=== PATIENT | female | born 1985 | race Asian ===

== ENCOUNTER → 2020-03-29 14:51 | Outpatient (BNVA) | payer OTHER, SELFPAY | PROVIDERS: PCP Internal Medicine; Referring Provider Internal Medicine; Visit Provider Physician Assistant | DX: Z76.89 Persons encountering health services in other specified circumstances (principal) ==

== ENCOUNTER 2020-06-02 11:30 | Day surgery (SDC) | payer OTHER, SELFPAY ==
[2020-05-26 19:36] VITALS: BMI 21.7
--- NOTE | 2020-06-01 09:36 | HO.ANESPROP2 ---
Documented by User: Janet Durbin 06/01/20 09:38 HPI - Anesthesia Eval Consult details Narrative: 34yo F for Upper Endoscopy with Balloon Dilitation PMFSH Active Problems Active Problems: All Active Problems (Updated 05/26/20 @ 19:34 by Oralia Matias RN) Dysphagia (Acute) Inflammatory arthritis (Acute) Acne (Acute) Odynophagia (Acute) Past Medical History Medical History (Updated 05/26/20 @ 19:34 by Oralia Matias RN) Acne Inflammatory arthritis Migraine Odynophagia Family History Family History Father Medical history non-contributory Mother Medical history non-contributory Brother No problems noted. Brother No problems noted. Sister No problems noted. Sister No problems noted. Son No problems noted. Daughter No problems noted. Daughter No problems noted. Surgical History Surgical History No pertinent past surgical history Social History Social History (Updated 03/29/20 @ 15:01 by Negra Wray PA-C) Household Members: Spouse and Children Alcohol intake: never Smoking Status: Never smoker Second Hand Smoke Exposure: No Use of substances other than those prescribed or required for medical reasons: No Advance Directives: No Advance Directives Information Provided: No Advance Directives on File: No Recently lost weight without trying: No Current occupational status: unemployed Meds Allergies Allergy/AdvReac Type Severity Reaction Status Date / Time morphine [MORPHINE] Allergy Intermediate RASH Verified 02/19/20 00:43 amoxicillin [AMOXICILLIN] Allergy Unknown UNKNOWN, Verified 02/19/20 00:43 unknown - childhood sulfacetamide Allergy Unknown rash Verified 02/19/20 00:43 Home Medications Medication Instructions Recorded Confirmed Last Taken Type meloxicam 15 mg tablet 15 mg PO DAILY 02/18/20 05/26/20 Unknown History spironolactone 25 mg tablet 25 mg PO DAILY 02/18/20 05/26/20 Unknown History clindamycin phosphate 1 applic TOPICAL BEDTIME PRN 05/26/20 05/26/20 Unknown History Exam Exam Date and Time: June 01, 2020 0936 Height,Weight and Vital Signs: Height 5 ft 1 in Weight 52.163 kg Assessment and Plan Assessment Anesthesia Assessment: Chart Reviewed Documented by User: Andressa Thakursamnia 06/02/20 14:16 PMFSH Past Medical History Medical History (Updated 05/26/20 @ 19:34 by Oralia Matias RN) Acne Inflammatory arthritis Migraine Odynophagia Family History Family History Father Medical history non-contributory Mother Medical history non-contributory Brother No problems noted. Brother No problems noted. Sister No problems noted. Sister No problems noted. Son No problems noted. Daughter No problems noted. Daughter No problems noted. Family history of problems with anesthesia: No Surgical History Surgical History No pertinent past surgical history History of Problems with Anesthesia: No Social History Social History (Updated 03/29/20 @ 15:01 by Negra Wray PA-C) Household Members: Spouse and Children Alcohol intake: never Smoking Status: Never smoker Second Hand Smoke Exposure: No Use of substances other than those prescribed or required for medical reasons: No Advance Directives: No Advance Directives Information Provided: No Advance Directives on File: No Recently lost weight without trying: No Current occupational status: unemployed Meds Allergies Allergy/AdvReac Type Severity Reaction Status Date / Time morphine [MORPHINE] Allergy Intermediate RASH Verified 02/19/20 00:43 amoxicillin [AMOXICILLIN] Allergy Unknown UNKNOWN, Verified 02/19/20 00:43 unknown - childhood sulfacetamide Allergy Unknown rash Verified 02/19/20 00:43 Home Medications Medication Instructions Recorded Confirmed Last Taken Type meloxicam 15 mg tablet 15 mg PO DAILY 02/18/20 05/26/20 Unknown History spironolactone 25 mg tablet 25 mg PO DAILY 02/18/20 05/26/20 Unknown History clindamycin phosphate 1 applic TOPICAL BEDTIME PRN 05/26/20 05/26/20 Unknown History Exam Height,Weight and Vital Signs: Vital Signs Temp Pulse Resp BP Pulse Ox 06/02/20 12:19 98.3 F 62 16 128/79 100 Pertinent Lab Results Pertinent Lab Results: Lab Results 06/02/20 Range/Units 11:52 Urine Test NEGATIVE (NEGATIVE) Airway Mallampati Class: I TM Dist: >3cm Neck ROM: Full Heart: RRR Lungs: CTAB Assessment and Plan Assessment Anesthesia Assessment: Anesthesia Plan Discussed and Chart Reviewed Final Anesthetic Review NPO: Yes ASA Class: II Final Preanesthetic Review: No Changes in Pt Med Stat, Meds/Allgs Chart Reviewed, Consent Obtained/Reviewed and Anes Risks/Benef Reviewed Patient Risk: Low Procedure Risk: Low Assessment/Block/Sedation in SS: Assess/Block/Sedation-SS Anesthetic Plan Anesthetic Plan: MAC: Disposition: Standard PACU
--- NOTE | 2020-06-02 12:12 | P.HPSUR_ITS ---
Pre-Procedural Eval Section B Chief Complaint: dysphagia Relevant Social History: None Present Medications: see Short Stay Collaborative assessment Medical History: Significant History (Acne Inflammatory arthritis Migraine Odynophagia) History of Previous Operations: No relevant previous surgery Allergies: Allergies Allergy/AdvReac Type Severity Reaction Status Date / Time morphine [MORPHINE] Allergy Intermediate RASH Verified 02/19/20 00:43 amoxicillin [AMOXICILLIN] Allergy Unknown UNKNOWN, Verified 02/19/20 00:43 unknown - childhood sulfacetamide Allergy Unknown rash Verified 02/19/20 00:43 Review of Systems Sugical H&P ROS: Negative: Constitution, Cardiovascular, Respiratory, Neurolo gical, Psychiatric, Hem-Onc, Allergic/Immunologic, Gastrointestinal, Genitourinary, Musculoskeletal, Integumentary, Endocrine and Eyes/Ears/Nose/Throat Exam Surgical H&P Exam: Normal: HEENT, Normal: Heart, Normal: Lungs, Normal: Extremities, Normal: Abdomen, Normal: Skin and Normal: Neurological Plan Diagnosis/Plan: Unchanged I have reviewed the history and physical and performed a pertinent physical examination on my patient. No changes have occurred unless specified.
[2020-06-02 12:15] LABS: UPreg QC Valid YES; Urine Pregnancy NEGATIVE (NEGATIVE)
[2020-06-02 12:19] VITALS: BP 128/79; PULSE 62; RESP 16; TEMP 36.8; O2SAT 100
[2020-06-02] MEDS: Lactated Ringers 1,000 ML 100 ML IVCONT (13:18)
--- NOTE | 2020-06-02 13:44 | W.PM.OPN ---
Operative Note Operative Note Date of Service: 06/02/20 Narrative: Procedure Description: EGD No problems with [facility] anesthesia FLEXIBLE TRANSORAL UPPER GASTROINTESTINAL ENDOSCOPY UPPER ENDOSCOPY Consent: Indications for the procedure and potential complications of bleeding, perforation, reaction to medications and missed diagnosis were discussed with the patient and informed consent was obtained. Instrument: Olympus GIF H 190 J mid size upper endoscope Monitoring: Vital signs and clinical assessment, continuous EKG monitoring, Pulse oximetry, Carbon Dioxide monitoring and blood pressure monitoring were done throughout the procedure. Procedure: The patient was placed in the left lateral decubitis position and pre-procedure medications were administered and a bite block was placed. The endoscope was inserted into the mouth and advanced under direct vision to the third part of duodenum. A careful inspection was made as the upper endoscope was withdrawn including a retroflexed examination of the proximal stomach; Findings and interventions are described below. Findings: Larynx:normal Esophagus: GE junction at 38 cm, diaphragm hiatus at 38 cm, LA grade A esophagitis, irregular Z line, bx taken from GEj and random esophagus. Balloon dilation 20 mm done at LES and 18 mm at UES, no tears or bleeding seen Stomach: Patchy gastric erythema. Biopsies were obtained. Grade 2 flap valve on retroflexed examination of the cardia. Duodenum: Normal bulb and descending duodenum Intervention: Biopsies as noted above Impression/Findings: esophagitis gastritis PLAN: await bx commence PPi and assess response
[2020-06-02 13:50] VITALS: BP 97/55; PULSE 68; RESP 16; TEMP 37; O2SAT 98
[2020-06-02 14:05] VITALS: BP 103/68; PULSE 66; RESP 16; O2SAT 100
[2020-06-02 14:20] VITALS: BP 121/70; PULSE 69; RESP 16; TEMP 37; O2SAT 100
== END 2020-06-02 15:06 | disposition home or self-care (01) ==
PROVIDERS: Nurse Practitioner; PCP Internal Medicine; Visit Provider Internal Medicine Gastroenterology
PROC: (CPT 43249; principal; 2020-06-02 13:10)
DX: R13.10 Dysphagia, unspecified (principal); K20.80 Other esophagitis without bleeding; K29.50 Unspecified chronic gastritis without bleeding; B96.81 Helicobacter pylori [H. pylori] as the cause of diseases classified elsewhere; K44.9 Diaphragmatic hernia without obstruction or gangrene; M06.4 Inflammatory polyarthropathy; Z79.899 Other long term (current) drug therapy; Z88.1 Allergy status to other antibiotic agents; Z88.2 Allergy status to sulfonamides; Z88.8 Allergy status to other drugs, medicaments and biological substances
CPT/HCPCS: 43249; 43239; 81025; 88305; 88342; C1726

== ENCOUNTER → 2020-06-09 10:17 | Outpatient (BNVA) | payer OTHER, SELFPAY | PROVIDERS: PCP Internal Medicine; Visit Provider Physician Assistant ==

== ENCOUNTER → 2020-09-17 11:20 | Outpatient (BNVA) | payer OTHER, SELFPAY | PROVIDERS: PCP Internal Medicine; Visit Provider Advanced Practice Midwife ==

== ENCOUNTER 2020-11-26 12:14 | Outpatient (REF) | payer OTHER, SELFPAY ==
[2020-11-26 14:05] LABS: MANUAL DIFF FLAG NO
[2020-11-26 14:09] LABS: Basophils Absolute Auto 0.1 X10*3/uL (0.0-0.2); Basophils Percent Auto 0.9 % (0-2); Eosinophils Absolute Auto 0.5 X10*3/uL (0.0-0.4); Eosinophils Percent Auto 6.9 % (0-4); Hemoglobin 11.2 g/dl (12.0-16.0); Imm Gran Abs Auto 0.02 X10*3/uL (0.00-0.03); Imm Gran Pct Auto 0.3 % (0.0-0.4); Lymphocytes Absolute Auto 1.9 X10*3/uL (1.2-4.9); Lymphocytes Percent Auto 27.9 % (20-40); Mean Corpuscular HGB Conc 31.1 g/dl (31.0-35.0); Mean Corpuscular Hemoglobin 25.7 pg (27.0-33.0); Mean Corpuscular Volume 82.6 fL (80-98); Monocytes Absolute Auto 0.4 X10*3/uL (0.1-1.2); Monocytes Percent Auto 5.8 % (2-11); Neutrophils Absolute Auto 3.9 X10*3/uL (2.0-8.3); Neutrophils Percent Auto 58.2 % (45-73); Platelet Count 406 X10*3/uL (160-400); Red Blood Count 4.36 X10*6/uL (4.20-5.50); Red Cell Distribution Width 18.2 % (11.0-16.0); White Blood Count 6.7 X10*3/uL (4.8-10.8)
[2020-11-26 14:50] LABS: Iron 58 mcg/dL (30-160); Percent Iron Saturation 16 % (15-50); Total Iron Binding Capacity 370 mcg/dL (228-428); Unsaturated Iron Binding 312 ug/dL
[2020-11-26 15:12] LABS: Thyroid Stimulating Hormone 1.73 uIU/mL (0.32-4.0)
== END 2020-11-26 12:15 | disposition home or self-care (01) ==
LOC: HO.HMGCLDS 12:14
PROVIDERS: PCP Internal Medicine; Visit Provider Internal Medicine
DX: D50.9 Iron deficiency anemia, unspecified (principal); R53.83 Other fatigue
CPT/HCPCS: 36415; 83540; 84443; 85025; 85027

== ENCOUNTER 2021-03-01 | Outpatient (REF) | payer OTHER, SELFPAY | END 2021-03-01 00:01 | disposition home or self-care (01) | LOC: HO.LNP | PROVIDERS: Visit Provider Internal Medicine Gastroenterology | DX: D50.9 Iron deficiency anemia, unspecified (principal) | CPT/HCPCS: 83013 ==

== ENCOUNTER 2021-03-01 12:00 | Outpatient (REF) | payer OTHER, SELFPAY ==
[2021-03-01 13:42] LABS: MANUAL DIFF FLAG NO
[2021-03-01 13:55] LABS: Basophils Absolute Auto 0.1 X10*3/uL (0.0-0.2); Basophils Percent Auto 0.8 % (0-2); Eosinophils Absolute Auto 0.5 X10*3/uL (0.0-0.4); Eosinophils Percent Auto 5.5 % (0-4); Imm Gran Abs Auto 0.03 X10*3/uL (0.00-0.03); Imm Gran Pct Auto 0.4 % (0.0-0.4); Lymphocytes Absolute Auto 2.4 X10*3/uL (1.2-4.9); Lymphocytes Percent Auto 28.3 % (20-40); Mean Corpuscular HGB Conc 31.4 g/dl (31.0-35.0); Mean Corpuscular Hemoglobin 25.3 pg (27.0-33.0); Mean Corpuscular Volume 80.6 fL (80.0-98.0); Monocytes Absolute Auto 0.6 X10*3/uL (0.1-1.2); Monocytes Percent Auto 6.5 % (2-11); Neutrophils Absolute Auto 4.9 x10*3/uL (2.0-8.3); Neutrophils Percent Auto 58.5 % (45-73); Platelet Count 420 X10*3/uL (160-400); Red Blood Count 4.34 X10*6/uL (4.20-5.50); White Blood Count 8.4 X10*3/uL (4.8-10.8)
[2021-03-01 14:56] LABS: Alanine Aminotransferase 16 U/L (0-31); Albumin Level 4.7 g/dL (3.5-5.0); Alkaline Phosphatase 76 U/L (39-117); Anion Gap 11 (12-20); Aspartate Amino Transferase 20 U/L (5-31); Bilirubin Total 0.2 mg/dL (0.0-1.0); Blood Urea Nitrogen 10 mg/dL (9-16); Calcium 9.7 mg/dL (8.4-10.2); Carbon Dioxide 24 mmol/L (22-29); Chloride 104 mmol/L (96-108); Estimated Glomerular Filt Rate > 60; Glucose Random 82 mg/dL (60-115); Iron 21 mcg/dL (30-160); Percent Iron Saturation 5 % (15-50); Potassium 4.1 mmol/L (3.3-5.1); Sodium 135 mmol/L (135-145); Total Iron Binding Capacity 461 mcg/dL (228-428); Total Protein 8.1 g/dL (6.5-8.0); Unsaturated Iron Binding 440 ug/dL
[2021-03-01 15:03] LABS: Folate 14.3 ng/mL (> or = 4.0); Vitamin B12 485 pg/mL (200-900)
[2021-03-01 15:10] LABS: Ferritin 9 ng/mL (10-122)
[2021-03-02 08:54] LABS: HBc Num1 0.16 S/CO (0.00-0.79); Hepatitis B Core Antibody Nonreactive (Nonreactive); ~Hepatitis B Surface Antibody NONREACTIVE (Nonreactive)
[2021-03-02 09:06] LABS: HBsAGNum1 0.15 S/CO (0.00-0.99); Hepatitis A Antibody IgM 0.35 Index (0-0.79); Hepatitis B Surface Antigen Negative (Negative); ~HepC Num1 0.07 S/CO (0.00-0.79); ~Hepatitis A Antibody IgM Nonreactive (Nonreactive); ~Hepatitis C Antibody Nonreactive (Nonreactive)
[2021-03-04 14:07] LABS: Zinc 69 mcg/dL (60-130)
[2021-03-05 08:26] LABS: Transglutaminase Ab IgG 5.8 U/mL; Transglutaminase IgA 16.8 U/mL
[2021-03-05 18:05] LABS: Vitamin C 0.2 mg/dL (0.3-2.7)
== END 2021-03-01 12:01 | disposition home or self-care (01) ==
LOC: HO.LAB 12:00
PROVIDERS: PCP Internal Medicine; Referring Provider Internal Medicine; Visit Provider Internal Medicine Gastroenterology
DX: G89.29 Other chronic pain (principal); R10.33 Periumbilical pain; K75.81 Nonalcoholic steatohepatitis (NASH); D50.9 Iron deficiency anemia, unspecified
CPT/HCPCS: 36415; 80053; 82180; 82607; 82728; 82746; 83013; 83516; 83540; 84630; 85025; 86003; 86704; 86706; 86709; 86803; 87340; 99212

== ENCOUNTER 2021-03-02 12:46 | Outpatient (REF) | payer OTHER, SELFPAY ==
[2021-03-03 12:21] LABS: H Pylori Breath Test Positive (Negative)
== END 2021-03-02 12:47 | disposition home or self-care (01) ==
LOC: HO.LNP 12:46
PROVIDERS: PCP Internal Medicine; Referring Provider Internal Medicine; Visit Provider Internal Medicine Gastroenterology
DX: A04.8 Other specified bacterial intestinal infections (principal)
CPT/HCPCS: 83013

== ENCOUNTER 2021-03-16 12:06 | Outpatient (REF) | payer OTHER, SELFPAY | END 2021-03-16 12:07 | disposition home or self-care (01) | LOC: HO.MDS 12:06 | PROVIDERS: PCP Internal Medicine; Visit Provider Internal Medicine Gastroenterology | DX: D50.9 Iron deficiency anemia, unspecified (principal) | CPT/HCPCS: 96365; J2916 ==

== ENCOUNTER 2021-03-16 14:28 | Emergency (ER) | payer OTHER, SELFPAY ==
--- NOTE | ~2021-03-16 | XR_ITS ---
EXAMINATION: XR CHEST CLINICAL INFORMATION: Chest pain COMPARISON: Chest radiographs 07/21/2019, 12/04/2017, CTA chest 12/04/2017 TECHNIQUE: 2 views of the chest were obtained. FINDINGS: The lungs are clear. There is no airspace consolidation or groundglass opacity or effusion. There is no pneumothorax or pleural reaction. The heart is normal in size. The hilar and mediastinal contours are normal. No acute bony abnormality. XR/XR chest 2V IMPRESSION: Unremarkable examination.
[2021-03-16 14:33] VITALS: BMI 22.3
[2021-03-16 14:34] VITALS: BP 124/76; PULSE 69; RESP 15; TEMP 36.6; O2SAT 100
[2021-03-16] MEDS: 0.9 % Sodium Chloride 1,000 ML 999 ML IVCONT (15:09)
[2021-03-16] MEDS: Ketorolac Tromethamine 30 MG/ML VIAL IVPUSH (15:11)
--- NOTE | 2021-03-16 15:11 | ED_ITS ---
HPI - General Adult General Chief complaint: Dyspnea Stated complaint: SOB Back Pain Time Seen by Provider: 03/16/21 14:49 Source: patient Mode of arrival: ambulatory Limitations: no limitations History of Present Illness HPI narrative: 35-year-old female came in for evaluation for possible side effect/ allergic reaction of iron infusion. Patient had a history of symptomatic anemia, was prescribed iron infusion, patient after received her iron infusion started to have shortness of breath, back pain, and found to have low-grade fever, but no chills, no rashes or itching. was sent to the ED for further evaluation. . No known history of allergies to iron. Patient reported that slightly painful at the Infusion side on the left forearm and had pain during the infusion. But no swelling in the left arm. Related Data Home Medications Medication Instructions Recorded Confirmed meloxicam 15 mg tablet 15 mg PO DAILY 02/18/20 10/05/20 Previous Rx's Medication Instructions Recorded cholecalciferol (vitamin D3) 50 50 mcg PO DAILY #30 tab 11/26/20 mcg (2,000 unit) tablet ferrous fumarate 324 mg (106 mg 324 mg PO DAILY 30 Days #30 tab 11/26/20 iron) tablet bismuth subsalicylate 262 mg 2 tab PO QID 14 Days #112 tab 03/04/21 chewable tablet metronidazole 500 mg tablet 500 mg PO TID 14 Days #42 tab 03/04/21 tetracycline 500 mg capsule 500 mg PO Q6H 14 Days #56 cap 03/04/21 pantoprazole 20 mg tablet,delayed 20 mg PO DAILY 30 Days #30 tab 03/09/21 release Allergies Allergy/AdvReac Type Severity Reaction Status Date / Time morphine [MORPHINE] Allergy Intermediate RASH Verified 03/01/21 12:03 amoxicillin [AMOXICILLIN] Allergy Unknown UNKNOWN, Verified 03/01/21 12:03 unknown - childhood sulfacetamide Allergy Unknown rash Verified 03/01/21 12:03 Review of Systems Review of Systems: All other systems are reviewed and are negative Constitutional: Reports as per HPI and Reports no additional constitutional complaints Eyes: Reports as per HPI and Reports no additional eye complaints Reports system reviewed and no additional complaints, except as documented Cardiovascular: Reports as per HPI and Reports no additional cardiovascular comp laints Respiratory: Reports as per HPI and Reports no additional respiratory complaints Gastrointestinal: Reports as per HPI and Reports no additional gastrointestinal complaints Genitourinary: Reports no additional female genitourinary complaints Musculoskeletal: Reports no additional musculoskeletal complaints Skin/Breast: Reports system reviewed and no additional complaints, except as docu Psychiatric: Reports no additional psychiatric complaints Endocrine: Reports no additional endocrine complaints Hematologic/Lymphatic: Reports no additional hematologic/lymphatic complaints Allergic/Immunologic: Reports no additional allergic/immunologic complaints Reports system reviewed and no additional complaints, except as documented and Reports Abnormal speech present [facility] Past Medical History Medical History Acne H. pylori infection Inflammatory arthritis Iron deficiency anemia Migraine Surgical History History of esophagogastroduodenoscopy (EGD) No pertinent past surgical history Family History Family History Father Medical history non-contributory Diabetes CVD (cardiovascular disease) Mother Medical history non-contributory Brother No problems noted. Brother No problems noted. Sister No problems noted. Sister No problems noted. Son No problems noted. Daughter No problems noted. Daughter No problems noted. Social History Social History Household Members: Spouse and Children Household Members Other:: 3kids Housing: House Alcohol intake: never Patient Tobacco Use Status: Never used Tobacco e-Cigarette/Vaping Use: Never Used Second Hand Smoke Exposure: No Use of substances other than those prescribed or required for medical reasons: No Advance Directives: No Advance Directives Information Provided: Yes Current occupational status: unemployed Physical Exam Vital Signs: Vital Signs: Last Vital Signs Temp 97.9 F 03/16/21 14:34 Pulse 69 03/16/21 14:34 Resp 15 03/16/21 14:34 BP 124/76 03/16/21 14:34 Pulse Ox 100 03/16/21 14:34 BMI result Body Mass Index 22.3 vital signs have been reviewed as appeared to be correct. Blood pressure normal. Heart rate normal. Respiration rate normal. Temperature normal. Oxygen saturation normal. Appearance: Alert. Oriented X3. No acute distress. Anxious. Head: Normal external exam. Normocephalic. Atraumatic. No Pedersen signs noted. No raccoon eyes noted Eyes: PERRLA. EOMI. Conjunctiva and sclera normal. Eyelids normal. ENT: TM's Normal. Pharynx normal. Uvula midline. Moist mucous membranes. No trismus noted. No drooling noted. No muffled voice noted. Neck: Normal inspection. Neck supple. FROM. No adenopathy. Thyroid Normal. No meningeal signs. No neck mass noted. CVS: Normal heart rate and rhythm. Heart sound normal. No murmurs noted. Pulses normal throughout. Respiratory: No respiratory distress. Painless inspiration. Breath sounds nor mal. No wheezes/rales/rhonchi noted. Chest nontender. No accessory muscle usage noted or decreased air movement noted. Abdomen: Soft and nontender. Bowel sounds normal in all 4 quadrants. No distent ion noted. No organomegaly noted. No visible injury noted. Back: No CVA tenderness. Full range of motion noted. Skin: Skin warm and dry. Normal skin color. Normal skin turgor. No rashes/lesions/lacerations noted. Extremities: No lower extremity edema. Extremities exhibit normal range of mot ion. Extremities nontender. Neuro: Oriented X 3. Cranial nerve exam: II-XII are grossly intact No motor deficit. No sensory deficit. Reflexes normal. Course Course Course Narrative: assessment and plan. 35-year-old female who was referred to our emergency department for evaluation of possible allergic reaction to iron infusion. Patient came in with severe bilateral chest wall /ribs pain, back pain and difficulty breathing. Patient received IV fluids and 1 dose of Solu-Medrol and 1 dose of Toradol. Patient now is feeling better able to tolerate p.o. intake will discharge to follow-up with her PCP. Medical Decision Making Lab Data Lab results reviewed: Yes I reviewed the patient's lab results. Result diagrams: 03/16/21 15:07 03/16/21 15:40 Labs: Lab Results 03/16/21 03/16/21 Range/Units 15:07 15:40 WBC 8.8 (4.8-10.8) X10*3/uL RBC 6.00 H D (4.20-5.50) X10*6/uL Hgb 15.0 D (12.0-16.0) g/dl Hct 48.4 H D (37.0-47.0) % MCV 80.7 (80.0-98.0) fL MCH 25.0 L (27.0-33.0) pg MCHC 31.0 (31.0-35.0) g/dl RDW 13.8 (11.0-16.0) % Plt Count 526 H D (160-400) X10*3/uL MPV 10.4 (9.4-12.3) fL Immature Gran % (Auto) 0.1 (0.0-0.4) % Neut % (Auto) 47.5 (45-73) % Lymph % (Auto) 41.7 H (20-40) % Mobile % (Auto) 5.1 (2-11) % Eos % (Auto) 4.4 H (0-4) % Baso % (Auto) 1.2 (0-2) % Lymph # (Auto) 3.7 (1.2-4.9) X10*3/uL Mobile # (Auto) 0.5 (0.1-1.2) X10*3/uL Eos # (Auto) 0.4 (0.0-0.4) X10*3/uL Baso # (Auto) 0.1 (0.0-0.2) X10*3/uL Abs Immat Gran (auto) 0.01 (0.00-0.03) X10*3/uL Absolute Neuts (auto) 4.2 (2.0-8.3) x10*3/uL Absolute Nucleated RBC 0.000 (0.0-0.012) X10*3/uL Nucleated RBC % (auto) 0.0 (0.0-0.2) /100WBC Sodium 138 (135-145) mmol/L Potassium 3.7 (3.3-5.1) mmol/L Chloride 106 (96-108) mmol/L Carbon Dioxide 24 (22-29) mmol/L Anion Gap 12 (12-20) BUN 10 (9-16) mg/dL Creatinine 0.63 (0.5-1.4) mg/dL Estim Creat Clear Calc 94.0 Estimated GFR > 60 Random Glucose 88 (60-115) mg/dL Calcium 9.1 D (8.4-10.2) mg/dL Total Bilirubin 0.3 (0.0-1.0) mg/dL Direct Bilirubin 0.2 (0.0-0.5) mg/dL AST 18 (5-31) U/L ALT 13 (0-31) U/L Alkaline Phosphatase 65 (39-117) U/L Total Protein 6.8 (6.5-8.0) g/dL Albumin 3.9 (3.5-5.0) g/dL Lipase 45 (8-78) U/L Imaging Data Chest x-ray: Radiologist's impression: Unremarkable examination. Discharge Plan Discharge Clinical Impression: Allergic reaction caused by a drug Qualifiers: Encounter type: initial encounter Qualified Code(s): T78.40XA - Allergy, unspecified, initial encounter Patient Disposition: Home, Self-Care Instructions: General Allergic Reaction (ED) Prescriptions: No Action bismuth subsalicylate 262 mg tablet,chewable 2 tab PO QID 14 Days Qty: 112 RF: 0 tetracycline 500 mg capsule 500 mg PO Q6H 14 Days Qty: 56 RF: 0 metronidazole 500 mg tablet 500 mg PO TID 14 Days Qty: 42 RF: 0 pantoprazole 20 mg tablet,delayed release (DR/EC) 20 mg PO DAILY 30 Days Qty: 30 RF: 0 ferrous fumarate 324 mg (106 mg iron) tablet 324 mg PO DAILY 30 Days Qty: 30 RF: 5 cholecalciferol (vitamin D3) 50 mcg (2,000 unit) tablet 50 mcg PO DAILY Qty: 30 RF: 5 meloxicam 15 mg tablet 15 mg PO DAILY RF: 0 Referrals: Sirisha Dior MD [Primary Care Provider] - 2 days
[2021-03-16 15:14] LABS: MANUAL DIFF FLAG NO
[2021-03-16] MEDS: methylPREDNISolone Sod Succ 125 MG/2 ML VIAL IVPUSH (15:14)
[2021-03-16 15:18] LABS: Basophils Absolute Auto 0.1 X10*3/uL (0.0-0.2); Basophils Percent Auto 1.2 % (0-2); Eosinophils Absolute Auto 0.4 X10*3/uL (0.0-0.4); Eosinophils Percent Auto 4.4 % (0-4); Hematocrit 48.4 % (37.0-47.0); Imm Gran Abs Auto 0.01 X10*3/uL (0.00-0.03); Imm Gran Pct Auto 0.1 % (0.0-0.4); Lymphocytes Absolute Auto 3.7 X10*3/uL (1.2-4.9); Lymphocytes Percent Auto 41.7 % (20-40); Mean Corpuscular Volume 80.7 fL (80.0-98.0); Mean Platelet Volume 10.4 fL (9.4-12.3); Monocytes Absolute Auto 0.5 X10*3/uL (0.1-1.2); Monocytes Percent Auto 5.1 % (2-11); Neutrophils Absolute Auto 4.2 x10*3/uL (2.0-8.3); Neutrophils Percent Auto 47.5 % (45-73); Platelet Count 526 X10*3/uL (160-400); Red Cell Distribution Width 13.8 % (11.0-16.0); White Blood Count 8.8 X10*3/uL (4.8-10.8)
[2021-03-16 16:05] LABS: Alanine Aminotransferase 13 U/L (0-31); Albumin Level 3.9 g/dL (3.5-5.0); Alkaline Phosphatase 65 U/L (39-117); Anion Gap 12 (12-20); Aspartate Amino Transferase 18 U/L (5-31); Bilirubin Direct 0.2 mg/dL (0.0-0.5); Bilirubin Total 0.3 mg/dL (0.0-1.0); Blood Urea Nitrogen 10 mg/dL (9-16); Calcium 9.1 mg/dL (8.4-10.2); Carbon Dioxide 24 mmol/L (22-29); Chloride 106 mmol/L (96-108); Estimated Glomerular Filt Rate > 60; Glucose Random 88 mg/dL (60-115); Lipase 45 U/L (8-78); Potassium 3.7 mmol/L (3.3-5.1); Sodium 138 mmol/L (135-145); Total Protein 6.8 g/dL (6.5-8.0)
== END 2021-03-16 17:16 | disposition home or self-care (01) ==
PROVIDERS: Emergency Provider Emergency Medicine; PCP Internal Medicine
DX: L50.0 Allergic urticaria (principal); Z79.899 Other long term (current) drug therapy
CPT/HCPCS: 36415; 71046; 80048; 80076; 83690; 85025; 96361; 96374; 96375; 99284; 99285; J1885; J2930

== ENCOUNTER → 2021-03-29 13:53 | Outpatient (BNVA) | payer OTHER, SELFPAY | PROVIDERS: PCP Internal Medicine; Referring Provider Internal Medicine; Visit Provider Internal Medicine Gastroenterology | DX: R10.33 Periumbilical pain (principal); D50.9 Iron deficiency anemia, unspecified | CPT/HCPCS: 99212 ==

== ENCOUNTER 2021-05-30 14:30 | Outpatient (REF) | payer OTHER, SELFPAY ==
--- NOTE | ~2021-05-30 | XR_ITS ---
EXAMINATION: CERVICAL SPINE CLINICAL INFORMATION: Pain after falling COMPARISON: None TECHNIQUE: AP, lateral, open-mouth views obtained for interpretation FINDINGS: Vertebral bodies are well aligned and intervertebral discs are preserved. Pedicles are intact soft tissues unremarkable on odontoid view demonstrate no fractures. There is straightening of cervical lordosis likely due to muscle spasm XR/XR lumbar spine 2-3V IMPRESSION: Muscle spasm with straightening of cervical lordosis
--- NOTE | ~2021-05-30 | XR_ITS ---
EXAMINATION: CERVICAL SPINE CLINICAL INFORMATION: Pain after falling COMPARISON: None TECHNIQUE: AP, lateral, open-mouth views obtained for interpretation FINDINGS: Vertebral bodies are well aligned and intervertebral discs are preserved. Pedicles are intact soft tissues unremarkable on odontoid view demonstrate no fractures. There is straightening of cervical lordosis likely due to muscle spasm XR/XR cervical spine 3V IMPRESSION: Muscle spasm with straightening of cervical lordosis
== END 2021-05-30 14:31 | disposition home or self-care (01) ==
LOC: HO.HMGCX 14:30
PROVIDERS: Visit Provider Internal Medicine
DX: S16.1XXA Strain of muscle, fascia and tendon at neck level, initial encounter (principal); M54.50 Low back pain, unspecified; Z91.81 History of falling
CPT/HCPCS: 72040; 72100

== ENCOUNTER → 2021-06-03 11:06 | Outpatient (BNVA) | payer OTHER, SELFPAY | PROVIDERS: PCP Internal Medicine; Referring Provider Internal Medicine; Visit Provider Internal Medicine Gastroenterology | DX: A04.8 Other specified bacterial intestinal infections (principal); R13.10 Dysphagia, unspecified | CPT/HCPCS: 99212 ==

== ENCOUNTER 2021-06-22 08:49 | Outpatient (REF) | payer OTHER, SELFPAY ==
--- NOTE | ~2021-06-22 | MR_ITS ---
EXAMINATION: MRI ABDOMEN AND PELVIS WITH AND WITHOUT CONTRAST: MR ENTEROGRAPHY CLINICAL INFORMATION: Reason for Exam R10.33 - Periumbilical pain COMPARISON: CT from 02/12/2018 TECHNIQUE: 1350 mL Volumen PO contrast prior to scanning. Then, multiple routine MRI sequences through the abdomen were obtained on a high-field 1.5 Kiana MRI before and after the uneventful administration of 5 mL of Gadavist gadolinium-based IV contrast. FINDINGS: STOMACH: Adequate distention with fluid. No wall thickening or focal abnormality. SMALL BOWEL: Average distention with fluid. Portions of the small bowel are not fluid-filled. No definite small bowel wall thickening. No abnormal dilatation. No abnormal bowel wall enhancement. COLON: Normally distended colon which is stool and fluid-filled. No wall thickening or focal abnormality. The appendix appears normal. LUNG BASES: Lung bases are clear. LIVER: Liver enhances normally. No focal lesion seen. Hepatic and portal veins enhance normally. GALLBLADDER AND BILIARY TREE: There is likely layering sludge in the gallbladder lumen. No intra or extra-hepatic biliary ductal dilation. SPLEEN: Normal. Normal size. No focal lesion. PANCREAS: Normal. ADRENAL GLANDS: Normal. No adrenal mass. KIDNEYS AND URETERS: Normal symmetric renal enhancement. No hydronephrosis or mass. LYMPHOVASCULAR STRUCTURES: Normal caliber aorta. IVC patent. No pathologically enlarged abdominal or retroperitoneal lymphadenopathy by CT size criteria. PELVIS: Anteverted uterus. No adnexal mass. OSSEOUS STRUCTURES: No acute or suspicious osseous abnormalities. MR/MR pelvis wo/w con IMPRESSION: No suspicious findings of the bowel. Sludge in the gallbladder lumen.
--- NOTE | ~2021-06-22 | MR_ITS ---
EXAMINATION: MRI ABDOMEN AND PELVIS WITH AND WITHOUT CONTRAST: MR ENTEROGRAPHY CLINICAL INFORMATION: Reason for Exam R10.33 - Periumbilical pain COMPARISON: CT from 02/12/2018 TECHNIQUE: 1350 mL Volumen PO contrast prior to scanning. Then, multiple routine MRI sequences through the abdomen were obtained on a high-field 1.5 Kiana MRI before and after the uneventful administration of 5 mL of Gadavist gadolinium-based IV contrast. FINDINGS: STOMACH: Adequate distention with fluid. No wall thickening or focal abnormality. SMALL BOWEL: Average distention with fluid. Portions of the small bowel are not fluid-filled. No definite small bowel wall thickening. No abnormal dilatation. No abnormal bowel wall enhancement. COLON: Normally distended colon which is stool and fluid-filled. No wall thickening or focal abnormality. The appendix appears normal. LUNG BASES: Lung bases are clear. LIVER: Liver enhances normally. No focal lesion seen. Hepatic and portal veins enhance normally. GALLBLADDER AND BILIARY TREE: There is likely layering sludge in the gallbladder lumen. No intra or extra-hepatic biliary ductal dilation. SPLEEN: Normal. Normal size. No focal lesion. PANCREAS: Normal. ADRENAL GLANDS: Normal. No adrenal mass. KIDNEYS AND URETERS: Normal symmetric renal enhancement. No hydronephrosis or mass. LYMPHOVASCULAR STRUCTURES: Normal caliber aorta. IVC patent. No pathologically enlarged abdominal or retroperitoneal lymphadenopathy by CT size criteria. PELVIS: Anteverted uterus. No adnexal mass. OSSEOUS STRUCTURES: No acute or suspicious osseous abnormalities. MR/MR abdomen wo/w con IMPRESSION: No suspicious findings of the bowel. Sludge in the gallbladder lumen.
== END 2021-06-22 08:50 | disposition home or self-care (01) ==
LOC: HO.MRI 08:49
PROVIDERS: Visit Provider Internal Medicine Gastroenterology
DX: R10.33 Periumbilical pain (principal); D50.9 Iron deficiency anemia, unspecified
CPT/HCPCS: 72197; 74183; A9585

== ENCOUNTER 2021-06-29 15:47 | Outpatient (REF) | payer OTHER, SELFPAY ==
[2021-06-29 16:55] LABS: Appearance Urine CLEAR; Color Urine YELLOW; Glucose Urine UA NEG (NEG); Leukocyte Esterase Urine NEG (NEG); Nitrite Urine NEG (NEG); PH 5.5 (5.0-8.0); Specific Gravity - Urine >= 1.030 (1.005-1.025); UACC Culture Trigger NO; Urine Blood TRACE (NEG); Urine Ketones NEG (NEG); Urine Protein NEG (NEG-TRACE)
[2021-06-29 17:10] LABS: Calcium Oxalate Crystals Urine 3+ /LPF; Mucus Urine TRACE /LPF; Other Casts Urine 0-2 /LPF; Squamous Epithelial Cell Urine 2+ /LPF; WBC Urine 0 /HPF (0-4)
[2021-06-30 19:31] LABS: Transglutaminase Ab IgG 2.7 U/mL; Transglutaminase IgA 10.3 U/mL
[2021-07-02 15:08] LABS: Gliadin Deamidated IgA Ab 1.5 U/mL; Gliadin Deamidated IgG Ab 73.3 U/mL
[2021-07-05 17:32] LABS: Histamine Plasma 4.8 ng/mL (< OR = 1.8)
== END 2021-06-29 15:48 | disposition home or self-care (01) ==
LOC: HO.LAB 15:47
PROVIDERS: PCP Internal Medicine; Visit Provider Internal Medicine Gastroenterology
DX: R10.33 Periumbilical pain (principal); G89.29 Other chronic pain; D50.9 Iron deficiency anemia, unspecified
CPT/HCPCS: 36415; 81001; 81382; 83088; 83520; 86258; 86364

== ENCOUNTER 2021-07-04 13:00 | Outpatient (RCR) | payer OTHER, SELFPAY ==
--- NOTE | 2021-06-27 14:29 | MHC.PT.EP ---
[facility] [place] [facility] [place] Office [address] Beth Howard [address] [phone] F: [phone] F: [phone] F: [phone] F: [phone] Physical Therapy Plan of Care Date of Evaluation: Date of Surgery: n/a Diagnosis: low back pain, strain of neck Assessment: Patient is a 35 year old female presenting to PT with complaints of pain in her neck and low back. Pt reports onset of pain began 6 months ago in the back and 1 month ago in the neck due to insidious onset with worsening after a recent fall. She presents today with impairments in pain, +ttp lumbar and cervical muscles, DNF strength, hip strength, and core strength. 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 Pt expresses meterman goal of reducing pain, and is motivated to work towards this in PT. Clinical presentation today is most consistent with signs and sx associated with neck and back pain that is likely myofascial in nature and pt will benefit from skilled PT to address the following problems and impairments noted upon evaluation: pain, +ttp lumbar and cervical muscles, DNF strength, hip strength, and core strength. These problems limit the patient with the following functional activities: ADLs, reading, helping kids with school work. The prescribed treatment plan of care is medically necessary. Co-morbidities of none were identified and taken into considerations of plan of care. Pt was educated on HEP, role of PT, prognosis, POC. Frequency and Duration: The patient will be seen 2 x week x 4 weeks Short Term Goals: Pt will demonstrate pain at rest <3/10 in 2 weeks for improved QOL. Pt will demonstrate ability to contract DNF with no cues in 2 weeks. Pt will demonstrate ability to perform PPT with good TA recruitment in 2 weeks for improved core stability. Pt will demonstrate improved hip strength in 2 weeks by 1/3 MMT for improved lumbopelvic stability. Underbaster Goals: Pt will demonstrate improved NDI score by 10% in 4 weeks for improved functional mobility. Pt will demonstrate ability to help her kids with their homework with min to no pain in 4 weeks for improved role as a Mom. Pt will demonstrate ability to complete ADLs and all household duties with min to no pain in 4 weeks for return to PLOF. Treatment Plan: Modalities to reduce pain, spasms and effusion. Manual therapy to restore motion and function. Therapeutic exercise to improve strength and flexibility. Neuromuscular re-education for posture and balance. Therapeutic activities to return to functional activities of daily living. Electronically signed by: Alexandra Villalba, PT, DPT, ATC Please sign and return to therapist. Thank you for your referral.
--- NOTE | 2021-07-11 10:35 | MHC.PT.DC ---
[facility] [place] [facility] [place] [facility] [place] [facility] [address] Beth Howard [address] [phone] F: [phone] F: [phone] F: [phone] F: [phone] Physical Therapy Discharge Report Diagnosis: low back pain, strain of neck Date of Surgery: n/a Date of Evaluation: 06/27/21 Date of Discharge: 07/11/21 Treatments to Date: 2 Cancellations to Date: 0 No Shows to Date: 3 Discharge Status: Visit Non-compliance Discharge Summary: Pt has failed to comply with [facility] attendance policy and no showed her last 3 PT appointments. Pt current status unknown at this time. Electronically signed by: Aleaxndra Villalba, PT, DPT, ATC Please sign and return to therapist. Thank you for your referral.
== END 2021-07-11 10:35 | disposition home or self-care (01) ==
LOC: HO.PTCHIC 13:00
PROVIDERS: PCP Internal Medicine; Visit Provider Internal Medicine
DX: M54.50 Low back pain, unspecified (principal); S16.1XXA Strain of muscle, fascia and tendon at neck level, initial encounter; Z91.81 History of falling
CPT/HCPCS: 97110; 97161; 97162

== ENCOUNTER 2022-05-29 08:57 | Emergency (ER) | payer OTHER, SELFPAY ==
--- NOTE | ~2022-05-29 | US_ITS ---
EXAMINATION: US OBSTETRICAL ULTRASOUND CLINICAL INFORMATION: Abdominal pain. Patient is . COMPARISON: None. LMP: 04/21/2022. Gestational age by maternal dates is 5 weeks 3 days. Estimated date of delivery by maternal dates is 01/26/2023. TECHNIQUE: Transabdominal and transvaginal first trimester OB ultrasound FINDINGS: There is a single intrauterine gestational sac with visible yolk sac. No pole is seen. Mean sac diameter measures 0.77 cm suggesting gestational age of 5 weeks 3 days. MATERNAL ADNEXA: The right maternal ovary measures 2.4 x 2.5 x 2.1 cm. 1.2 x 0.8 x 1 cm simple cyst. The left maternal ovary measures 3.6 x 1.5 x 2.7 cm. 1.9 x 1.5 x 1.9 cm complex cyst probably representing a corpus luteum. Trace ascites in the maternal pelvis. US/US OB pelvic and transvaginal IMPRESSION: Intrauterine gestational sac and yolk sac. No pole seen. Mean sac diameter suggests gestational age of 5 weeks 3 days.
[2022-05-29 09:05] VITALS: BP 107/75; PULSE 74; RESP 16; TEMP 37; O2SAT 100; BMI 22.6
--- OUTSIDE RECORDS SUMMARY | 2022-05-29 09:35 | XMS_ITS | Continuity of Care Document ---
:1985 Author Organization [facility] Address [address] [place] [id number]- Care Team Providers Name Role Phone Barby LOPEZ, Sirisha Dowd Primary Care Physician Encounter [facility] Date(s): 03/23/21 - 03/24/[address] [address]- Discharge Disposition: A-D/C Home Attending Physician: Steven More MD Admitting Physician: Steven More MD Referring Physician: Not on Staff, Referring MD Allergies, Adverse Reactions, Alerts Substance Reaction Severity Status amoxicillin Active sulfADIAZINE Active morphine Active Immunizations Given and Recorded Vaccine Date Status Refusal Reason Poliovirus Vaccine, Inactivated 02/24/14 Given Typhoid Vaccine, Inactivated 01/28/14 Given Hepatitis A Adult Vaccine 01/28/14 Given Medications ciprofloxacin 500 mg oral tablet 1 tablet = 500 mg, By Mouth, Every 12 hours, for severe diarrhea during travel, # 6 tablet, 0 Refills, Maintenance, 01/28/14 13:26:53, 1 tablet By Mouth Every 12 hours,Instr:for severe diarrhea during travel Start Date: 01/28/14 Status: Orderedmefloquine 250 mg oral tablet 1 tablet = 250 mg, By Mouth, Every week, begin 2 weeks prior to entry into [facility] area and continue for 4 weeks upon leaving [facility] area, # 16 tablet, 0 Refills, Maintenance, 01/28/14 13:28:08, 1tablet By Mouth Every week,Instr:begin 2 weeks pr... Start Date: 01/28/14 Status: Orderedondansetron 4 mg oral tablet, disintegrating 1 tablet = 4 mg, By Mouth, Every 8 hours, PRN as needed for nausea/vomiting, # 12 tablet, 0 Refills,Maintenance, 03/24/21 16:22:00 EST, DIS Tablet, [facility]/pharmacy #[id number], Partial fill upon patient request if the prescription is for a schedule II opioid... Start Date: 03/24/21 Status: OrderedPrenatal Multivitamins with Folic Acid 1 mg oral kit 1 pack/packet, By Mouth, Daily, 0 Refills, Maintenance Start Date: 03/13/12 Status: Ordered Problem List Condition Effective Dates Status Health Status Informant Oral lesion(Confirmed) Active Results Orders for Microbiology Reports Name Date Wet Prep 03/24/21 Microbiology Reports TEST:Wet Prep STATUS:Auth (Verified) BODY SITE: SOURCE:VAGINA COLLECTED DATE/TIME:03/24/21 9:50 AMWet Prep SPECIMEN DESCRIPTION : VAGINAL SPECIMEN SPECIAL REQUESTS : NONE DIRECT EXAM : 1+ WHITE BLOOD CELLS NO TRICHOMONAS,YEAST,OR CLUE CELLS OBSERVED REPORT STATUS : FINAL 03/24/2021 Vital Signs Most recent to oldest 1 2 3 [Reference Range]: Oxygen Saturation [94-100 %] 100 % 99 % 99 % (03/24/21 4:30 PM) (03/24/21 2:40 PM) (03/24/21 1:3 0 PM) Pulse Rate [55-90 bpm] 62 bpm 66 bpm 63 bpm (03/24/21 4:30 PM) (03/24/21 2:40 PM) (03/24/21 1:3 0 PM) Blood Pressure [90-138/55-84 mm 113/73 mm Hg 111/61 mm Hg 131/89 mm Hg Hg] (03/24/21 4:30 PM) (03/24/21 2:40 PM) (03/24/21 1:3 0 PM) Respiratory Rate [16-30 br/min] 18 br/min 16 br/min 16 br/min (03/24/21 4:30 PM) (03/24/21 2:40 PM) (03/24/21 1:3 0 PM) Temperature [96.8-100.4 DegF] 98.1 DegF 98.2 DegF 98 .0 DegF (03/24/21 1:30 PM) (03/24/21 8:12 AM) (03/24/21 2:2 0 AM) Mode of Delivery (Oxygen) Room air Room air Room a ir (03/24/21 4:30 PM) (03/24/21 2:40 PM) (03/24/21 1:3 0 PM) Blood pressure sites Arm, right Arm, right Arm, right (03/24/21 4:30 PM) (03/24/21 2:40 PM) (03/24/21 1:3 0 PM) Temperature Route Oral Oral Oral (03/24/21 1:30 PM) (03/24/21 8:12 AM) (03/24/21 2:2 0 AM)
--- NOTE | 2022-05-29 09:39 | ED.ABDPAIN ---
HPI - Abdominal Pain General Chief Complaint: Abdominal Pain Stated Complaint: lower abd pain Time Seen by Provider: 05/29/22 09:35 Source: patient Mode of arrival: ambulatory Limitations: no limitations History of Present Illness HPI narrative: 36 yo female with no PMH hx of hyperemesis with prior pregnancies delivered vaginally here with LMP 1/6 positive test 2 days ago sent from urgent care due to lower abdominal pain x 4 days radiates around back. no discharge, bleeding or urinary symptoms. pain worse with movements. MD elicited complaint: abdominal pain Pertinent past history: none Onset (ago): day(s) (4) Pain Consistency: intermittent Location: pelvis Severity: mild Quality: aching and dull Radiation: back Migration to: no migration Exacerbating factors: movement Relieving factors: nothing Associated symptoms: nausea Related Data Previous Rx's Medication Instructions Recorded cholecalciferol (vitamin D3) 50 50 mcg PO DAILY #90 tabs 12/02/21 mcg (2,000 unit) tablet meloxicam 15 mg tablet 15 mg PO DAILY #14 tabs 01/03/22 nitrofurantoin 100 mg PO BID 7 days #14 caps 05/29/22 monohydrate/macrocrystals 100 mg capsule (Macrobid) Allergies Allergy/AdvReac Type Severity Reaction Status Date / Time morphine [MORPHINE] Allergy Intermediate RASH Verified 05/29/22 08:06 amoxicillin [AMOXICILLIN] Allergy Unknown UNKNOWN, Verified 05/29/22 08:06 unknown - childhood sulfacetamide Allergy Unknown rash Verified 05/29/22 08:06 Review of Systems Review of Systems Constitutional : No Fever, No Chills ENT/Mouth : No sore throat, No Rhinorrhea Eyes: No Eye Pain, No Redness Cardiovascular : No Chest Pain, No SOB Respiratory : No Cough, No Sputum, No Wheezing Gastrointestinal : positive Nausea, No Vomiting, No Diarrhea, positive abdominal pain, Genitourinary : no irregular bleeding, No Dysuria, No Urinary Frequency, positive pelvic pain Musculoskeletal : No Myalgias Skin : No rash Neuro : No Weakness, No Headache Psych : No Anxiety/Panic, No Depression Heme/Lymph: No bruising, No Lymphadenopathy Endocrine : No Polyuria, No Polydipsia All other systems reviewed and are negative [facility] Past Medical History Attestation statement: The following information was validated with the patient. Medical History Acne Cervical strain, acute H. pylori infection Hx: bad fall Inflammatory arthritis Iron deficiency anemia Low back pain Migraine Surgical History History of esophagogastroduodenoscopy (EGD) No pertinent past surgical history Family History Family History Father Medical history non-contributory Diabetes CVD (cardiovascular disease) Mother Medical history non-contributory Brother No problems noted. Brother No problems noted. Sister No problems noted. Sister No problems noted. Son No problems noted. Daughter No problems noted. Daughter No problems noted. Social History Social History Household Members: Spouse and Children Household Members Other:: 3kids Housing: House Alcohol intake: never Patient Tobacco Use Status: Never used Tobacco e-Cigarette/Vaping Use: Never Used Second Hand Smoke Exposure: No Advance Directives: No Advance Directives on File: No Current occupational status: unemployed Physical Exam ED Vital Signs: Vital Signs - 24 hr 05/29/22 09:05 Temperature 98.6 F Pulse Rate 74 Respiratory Rate 16 Blood Pressure 107/75 Pulse Oximetry 100 Oxygen Delivery Method Room Air BMI result Body Mass Index 22.6 Appearance: Alert. Oriented X3. No acute distress. Eyes: Pupils equal, round and reactive to light. ENT: Pharynx normal. Neck: Normal inspection. Neck supple. CVS: Normal heart rate and rhythm. Pulses normal. Respiratory: No respiratory distress. Breath sounds normal. Abdomen: Soft and mild suprapubic ttp no rebound or guarding Skin: Skin warm and dry. Normal skin color. Normal skin turgor. Extremities: No lower extremity edema. No calf ttp Neuro: Oriented X 3. No motor deficit. No sensory deficit. Medical Decision Making Medical Decision Making [facility] Narrative: 36 yo female prior hx of anemia and hyperemesis with here with c/o lower abdominal pain but no urinary symptoms and no vaginal bleeding - at this time will need quant and US to r/o ectopic. She has stable VS - hemoglobin did drop but that was checked 1 year ago and with stable VS doubt acute intraperitoneal bleed. Differential Diagnosis Differential Diagnoses: The differential diagnosis associated with the presentation includes UTI, ovarian cyst, round ligament pain, ectopic Lab Data [facility] Lab Attestation statement: I reviewed the patient's lab results. 05/29/22 09:52 05/29/22 09:52 Labs: Lab Results 05/29/22 05/29/22 05/29/22 Range/Units 09:49 09:52 09:52 WBC 6.4 (4.8-10.8) X10*3/uL RBC 4.44 D (4.20-5.50) X10*6/uL Hgb 10.1 L D (12.0-16.0) g/dl Hct 32.9 L D (37.0-47.0) % MCV 74.1 L (80.0-98.0) fL MCH 22.7 L (27.0-33.0) pg MCHC 30.7 L (31.0-35.0) g/dl RDW 15.7 (11.0-16.0) % Plt Count 434 H (160-400) X10*3/uL MPV 10.0 (9.4-12.3) fL Immature Gran % (Auto) 0.2 (0.0-0.4) % Neut % (Auto) 54.4 (45-73) % Lymph % (Auto) 33.1 (20-40) % [place] % (Auto) 7.5 (2-11) % Eos % (Auto) 3.6 (0-4) % Baso % (Auto) 1.2 (0-2) % Lymph # (Auto) 2.1 (1.2-4.9) X10*3/uL [place] # (Auto) 0.5 (0.1-1.2) X10*3/uL Eos # (Auto) 0.2 (0.0-0.4) X10*3/uL Baso # (Auto) 0.1 (0.0-0.2) X10*3/uL Abs Immat Gran (auto) 0.01 (0.00-0.03) X10*3/uL Absolute Neuts (auto) 3.5 (2.0-8.3) x10*3/uL Absolute Nucleated RBC 0.000 (0.0-0.012) X10*3/uL Nucleated RBC % (auto) 0.0 (0.0-0.2) /100WBC Sodium 136 (135-145) mmol/L Potassium 4.4 (3.3-5.1) mmol/L Chloride 106 (96-108) mmol/L Carbon Dioxide 21 L (22-29) mmol/L Anion Gap 13 (12-20) BUN 8 L (9-16) mg/dL Creatinine 0.56 (0.5-1.4) mg/dL Estim Creat Clear Calc 104.7 Estimated GFR > 60 Random Glucose 86 (60-115) mg/dL Calcium 9.5 (8.4-10.2) mg/dL Total Bilirubin 0.4 (0.0-1.0) mg/dL Direct Bilirubin 0.2 (0.0-0.5) mg/dL AST 17 (5-31) U/L ALT 13 (0-31) U/L Alkaline Phosphatase 63 (39-117) U/L Total Protein 7.5 (6.5-8.0) g/dL Albumin 4.4 (3.5-5.0) g/dL Lipase 25 (8-78) U/L Beta HCG, Quant 9220 mIU/mL Urine Color Yellow Urine Appearance Cloudy Urine pH 5.5 (5.0-9.0) Ur Specific [place] 1.025 (1.005-1.025) Urine Protein Negative (Neg-Trace) mg/dL Urine Glucose (UA) Negative (Negative) mg/dL Urine Ketones Negative (Negative) mg/dL Urine Blood Negative (Negative) Urine Nitrite Negative (Negative) Ur Leukocyte Esterase Large (3+) H (Negative) Urine RBC 0-2 (0-2) /HPF Urine WBC >50 H (0-5) /HPF Ur Squamous Epith Cells 6-10 (0-2) /HPF Urine Bacteria 1+ (None Seen) Hyaline Casts 0-2 (0-2) /LPF Independent Interpretation I performed an independent interpretation of an: Ultrasound Radiology Impression Discussion of test interpretation with radiology: I have reviewed the radiologist's reading. External Record Review External record reviewed: Inpatient record Prescription Management I considered prescription management with: Antibiotic Discharge Plan Discharge Clinical Impression: Acute lower UTI, Pelvic pain affecting , Ovarian cyst Patient Disposition: Home, Self-Care Instructions: Ovarian Cyst (ED), Urinary Tract Infection in (ED), Pelvic Pain (ED) Additional Instructions: MATERNAL ADNEXA: ? ? The right maternal ovary measures 2.4 x 2.5 x 2.1 cm.? 1.2 x 0.8 x 1 cm simple cyst. The left maternal ovary measures 3.6 x 1.5 x 2.7 cm.? 1.9 x 1.5 x 1.9 cm complex cyst probably representing a corpus luteum. Trace ascites in the maternal pelvis. US/US OB pelvic and transvaginal IMPRESSION: Intrauterine gestational sac and yolk sac. No pole seen. Mean sac diameter suggests gestational age of 5 weeks 3 days. please follow up with your OBGYN in the next two days. return for worsening pain, fainting, bleeding or any other concerns. you should have repeat hormone test and ultrasound with your OBGYN in the next 5 to 7 days. take a probiotic while on antibiotic. Prescriptions: New nitrofurantoin monohyd/m-cryst [Macrobid] 100 mg capsule 100 mg PO BID 7 Days Qty: 14 0RF Rx Instructions: must administer with a meal/food No Action cholecalciferol (vitamin D3) 50 mcg (2,000 unit) tablet 50 mcg PO DAILY Qty: 90 1RF meloxicam 15 mg tablet 15 mg PO DAILY Qty: 14 0RF
[2022-05-29 09:58] LABS: MANUAL DIFF FLAG NO
[2022-05-29 10:01] LABS: Appearance Urine Cloudy; Color Urine Yellow; Glucose Urine UA Negative (Negative); Leukocyte Esterase Urine Large (3+) (Negative); Nitrite Urine Negative (Negative); PH 5.5 (5.0-9.0); Specific Gravity - Urine 1.025 (1.005-1.025); UMIC TRIGGER UACC YES; Urine Blood Negative (Negative); Urine Ketones Negative (Negative); Urine Protein Negative (Neg-Trace)
[2022-05-29 10:05] LABS: Basophils Absolute Auto 0.1 X10*3/uL (0.0-0.2); Basophils Percent Auto 1.2 % (0-2); Eosinophils Absolute Auto 0.2 X10*3/uL (0.0-0.4); Eosinophils Percent Auto 3.6 % (0-4); Hematocrit 32.9 % (37.0-47.0); Hemoglobin 10.1 g/dl (12.0-16.0); Imm Gran Abs Auto 0.01 X10*3/uL (0.00-0.03); Imm Gran Pct Auto 0.2 % (0.0-0.4); Lymphocytes Absolute Auto 2.1 X10*3/uL (1.2-4.9); Lymphocytes Percent Auto 33.1 % (20-40); Mean Corpuscular HGB Conc 30.7 g/dl (31.0-35.0); Mean Corpuscular Hemoglobin 22.7 pg (27.0-33.0); Mean Corpuscular Volume 74.1 fL (80.0-98.0); Monocytes Absolute Auto 0.5 X10*3/uL (0.1-1.2); Monocytes Percent Auto 7.5 % (2-11); Neutrophils Absolute Auto 3.5 x10*3/uL (2.0-8.3); Neutrophils Percent Auto 54.4 % (45-73); Platelet Count 434 X10*3/uL (160-400); Red Blood Count 4.44 X10*6/uL (4.20-5.50); Red Cell Distribution Width 15.7 % (11.0-16.0); White Blood Count 6.4 X10*3/uL (4.8-10.8)
[2022-05-29 10:11] LABS: Bacteria Urine 1+ (None Seen); Hyaline Casts Urine 0-2 /LPF (0-2); RBC Urine 0-2 /HPF (0-2); UACC Culture Trigger YES; WBC Urine >50 /HPF (0-5)
[2022-05-29 10:22] LABS: Alanine Aminotransferase 13 U/L (0-31); Albumin Level 4.4 g/dL (3.5-5.0); Alkaline Phosphatase 63 U/L (39-117); Aspartate Amino Transferase 17 U/L (5-31); Bilirubin Direct 0.2 mg/dL (0.0-0.5); Bilirubin Total 0.4 mg/dL (0.0-1.0); Blood Urea Nitrogen 8 mg/dL (9-16); Calcium 9.5 mg/dL (8.4-10.2); Carbon Dioxide 21 mmol/L (22-29); Chloride 106 mmol/L (96-108); Creatinine Clr Calc Pharmacy 104.7; Estimated Glomerular Filt Rate > 60; Glucose Random 86 mg/dL (60-115); Potassium 4.4 mmol/L (3.3-5.1); Sodium 136 mmol/L (135-145); Total Protein 7.5 g/dL (6.5-8.0)
[2022-05-29 10:29] LABS: Anion Gap 13 (12-20); HCG Quantitative 9220 mIU/mL; Lipase 25 U/L (8-78)
== END 2022-05-29 12:44 | disposition home or self-care (01) ==
PROVIDERS: Emergency Provider Emergency Medicine; PCP Internal Medicine
DX: O26.891 Other specified pregnancy related conditions, first trimester (principal); R10.2 Pelvic and perineal pain; O23.41 Unspecified infection of urinary tract in pregnancy, first trimester; N39.0 Urinary tract infection, site not specified; O34.81 Maternal care for other abnormalities of pelvic organs, first trimester; N83.291 Other ovarian cyst, right side; N83.292 Other ovarian cyst, left side; O09.521 Supervision of elderly multigravida, first trimester; Z3A.01 Less than 8 weeks gestation of pregnancy
CPT/HCPCS: 36415; 76801; 76817; 80048; 80076; 81001; 81003; 83690; 84702; 85025; 87086; 99284

== ENCOUNTER 2022-06-01 11:44 | Outpatient (REF) | payer OTHER, SELFPAY ==
[2022-06-02 13:15] LABS: BV Int Neg Control Negative (Negative); BV Int Pos Control Positive (Positive)
[2022-06-02 13:57] LABS: CT PCR NOT DETECTED (Not Detect.); NG PCR NOT DETECTED (Not Detect.)
== END 2022-06-01 11:45 | disposition home or self-care (01) ==
LOC: HO.LAB 11:44
PROVIDERS: PCP Internal Medicine; Visit Provider Obstetrics & Gynecology
DX: O26.899 Other specified pregnancy related conditions, unspecified trimester (principal); R10.2 Pelvic and perineal pain
CPT/HCPCS: 0353U; 87480; 87510; 87660; 99212

== ENCOUNTER 2022-06-01 13:11 | Outpatient (REF) | payer OTHER, SELFPAY | END 2022-06-01 13:12 | disposition home or self-care (01) | LOC: HO.LNP 13:11 | PROVIDERS: Visit Provider Obstetrics & Gynecology | DX: Z13.89 Encounter for screening for other disorder (principal) ==

== ENCOUNTER 2022-06-07 14:21 | Outpatient (REF) | payer OTHER, SELFPAY ==
--- NOTE | ~2022-06-07 | US_ITS ---
EXAMINATION: US OBSTETRICAL ULTRASOUND CLINICAL INFORMATION: Check size and dates. Positive . COMPARISON: Previous exam 05/29/2022. LMP: 04/21/2022. Gestational age by maternal dates is 6 weeks 5 days. Estimated date of delivery by maternal dates is 01/27/2020. TECHNIQUE: Transabdominal first trimester OB ultrasound FINDINGS: There is a single intrauterine gestational sac with visible yolk sac, embryo/fetus, and cardiac activity. There is no significant subchorionic hemorrhage or hematoma. HR: 130 beats per minute. CRL (crown rump length): 0.51 cm (6 weeks 2 days +/- 4 days). AMELIA (estimated date of delivery): 01/29/2023 +/- 4 days. MATERNAL ADNEXA: The right maternal ovary measures 2.8 x 2.2 x 3.1 cm. The left maternal ovary measures 3.7 x 2.8 x 3 cm. There is no significant maternal adnexal mass. No maternal pelvic ascites. US/US OB <= 14 weeks fetus IMPRESSION: 1. Single intrauterine gestation with ultrasound gestational age of 6 weeks 2 days +/- 4 days. 2. Estimated date of delivery is 01/29/2023 +/- 4 days. 3. No maternal adnexal mass or pelvic ascites.
== END 2022-06-07 14:22 | disposition home or self-care (01) ==
LOC: HO.HMGCX 14:21
PROVIDERS: PCP Internal Medicine; Visit Provider Advanced Practice Midwife
DX: O26.891 Other specified pregnancy related conditions, first trimester (principal); R10.2 Pelvic and perineal pain; Z3A.01 Less than 8 weeks gestation of pregnancy
CPT/HCPCS: 76801

== ENCOUNTER → 2022-06-22 13:43 | Outpatient (BNVA) | payer OTHER, SELFPAY | PROVIDERS: PCP Internal Medicine; Visit Provider Advanced Practice Midwife | DX: O26.891 Other specified pregnancy related conditions, first trimester (principal); R11.0 Nausea; O09.521 Supervision of elderly multigravida, first trimester; Z3A.08 8 weeks gestation of pregnancy | CPT/HCPCS: 99212 ==

== ENCOUNTER 2022-07-11 09:58 | Outpatient (REF) | payer OTHER, SELFPAY ==
[2022-07-11 11:54] LABS: Hemoglobin 11.5 g/dl (12.0-16.0); Mean Corpuscular HGB Conc 31.9 g/dl (31.0-35.0); Mean Corpuscular Hemoglobin 25.1 pg (27.0-33.0); Mean Corpuscular Volume 78.4 fL (80.0-98.0); Mean Platelet Volume 10.5 fL (9.4-12.3); Platelet Count 347 X10*3/uL (160-400); Red Blood Count 4.59 X10*6/uL (4.20-5.50); Red Cell Distribution Width 19.6 % (11.0-16.0); White Blood Count 8.8 X10*3/uL (4.8-10.8)
[2022-07-11 15:43] LABS: Amphetamine Screen Urine Not Detected (Not Detect); Barbiturates, Urine Not Detected (Not Detect); Benzodiazepines Screen Urine Not Detected (Not Detect); Cannabinoid Screen Urine Not Detected (Not Detect); Cocaine Screen Urine Not Detected (Not Detect); Fentanyl, urine Not Detected (Not Detect); Opiate Screen Urine Not Detected (Not Detect); Phencyclidine Screen Urine Not Detected (Not Detect)
[2022-07-11 16:00] LABS: Influenza A PCR NEGATIVE (Negative); Influenza B PCR NEGATIVE (Negative); Resp Syncy Virus RNA Qual PCR NEGATIVE (Negative); SARS COV2 PCR INHOUSE NEGATIVE (Negative)
[2022-07-12 04:14] LABS: Syphilis Screen Nonreactive (Nonreactive)
[2022-07-12 04:47] LABS: HBsAGNum1 0.34 S/CO (0.00-0.99); HIV AB/AG Nonreactive (Nonreactive); HIV Num 1 0.08 S/CO (0.00-0.99); Hepatitis B Surface Antigen Negative (Negative); ~Hepatitis C Antibody Nonreactive (Nonreactive)
[2022-07-25 21:09] LABS: CF Ethnicity NG; Cystic Fibrosis NEGATIVE (NEGATIVE)
== END 2022-07-11 09:59 | disposition home or self-care (01) ==
LOC: HO.LAB 09:58
PROVIDERS: Nurse Practitioner Family; PCP Internal Medicine; Visit Provider Advanced Practice Midwife
DX: O09.521 Supervision of elderly multigravida, first trimester (principal); O26.891 Other specified pregnancy related conditions, first trimester; R09.89 Other specified symptoms and signs involving the circulatory and respiratory systems; K90.0 Celiac disease; Z20.2 Contact with and (suspected) exposure to infections with a predominantly sexual mode of transmission; Z79.899 Other long term (current) drug therapy
CPT/HCPCS: 0241U; 80307; 81220; 85027; 86762; 86780; 86787; 86803; 86850; 86900; 87086; 87340; 87389; 99212

== ENCOUNTER → 2022-08-08 11:19 | Outpatient (BNVA) | payer OTHER, SELFPAY | PROVIDERS: PCP Internal Medicine; Visit Provider Advanced Practice Midwife | DX: O09.522 Supervision of elderly multigravida, second trimester (principal); O26.892 Other specified pregnancy related conditions, second trimester; R06.82 Tachypnea, not elsewhere classified; Z3A.15 15 weeks gestation of pregnancy | CPT/HCPCS: 99212 ==

== ENCOUNTER 2022-08-16 10:59 | Outpatient (REF) | payer OTHER, SELFPAY ==
[2022-08-19 04:04] LABS: HPV mRNA E6/E7 rflx Not Detected (Not Detected)
== END 2022-08-16 11:00 | disposition home or self-care (01) ==
LOC: HO.LNP 10:59
PROVIDERS: PCP Internal Medicine; Visit Provider Advanced Practice Midwife
DX: Z34.92 Encounter for supervision of normal pregnancy, unspecified, second trimester (principal); Z3A.16 16 weeks gestation of pregnancy
CPT/HCPCS: 87624; 88142; 99212

== ENCOUNTER 2022-08-16 14:18 | Outpatient (REF) | payer OTHER, SELFPAY ==
[2022-08-16 16:22] LABS: MANUAL DIFF FLAG NO
[2022-08-16 16:38] LABS: Basophils Absolute Auto 0.1 X10*3/uL (0.0-0.2); Basophils Percent Auto 0.7 % (0-2); Eosinophils Absolute Auto 0.3 X10*3/uL (0.0-0.4); Eosinophils Percent Auto 2.7 % (0-4); Hematocrit 36.9 % (37.0-47.0); Hemoglobin 12.1 g/dl (12.0-16.0); Imm Gran Abs Auto 0.03 X10*3/uL (0.00-0.03); Imm Gran Pct Auto 0.3 % (0.0-0.4); Lymphocytes Absolute Auto 2.2 X10*3/uL (1.2-4.9); Lymphocytes Percent Auto 23.8 % (20-40); Mean Corpuscular HGB Conc 32.8 g/dl (31.0-35.0); Mean Corpuscular Hemoglobin 26.4 pg (27.0-33.0); Mean Corpuscular Volume 80.4 fL (80.0-98.0); Mean Platelet Volume 10.6 fL (9.4-12.3); Monocytes Absolute Auto 0.7 X10*3/uL (0.1-1.2); Monocytes Percent Auto 7.2 % (2-11); Neutrophils Percent Auto 65.3 % (45-73); Platelet Count 336 X10*3/uL (160-400); Red Blood Count 4.59 X10*6/uL (4.20-5.50); Red Cell Distribution Width 17.2 % (11.0-16.0); White Blood Count 9.2 X10*3/uL (4.8-10.8)
[2022-08-16 17:06] LABS: Iron 35 mcg/dL (30-160); Percent Iron Saturation 9 % (15-50); Total Iron Binding Capacity 407 mcg/dL (228-428); Unsaturated Iron Binding 372 ug/dL
[2022-08-16 17:22] LABS: Ferritin 12 ng/mL (10-122); TSH reflex Free T4 2.04 uIU/mL (0.32-4.0); Vitamin D 25-OH Total 40.9 ng/mL (>30)
[2022-08-17 04:55] LABS: CT PCR NOT DETECTED (Not Detect.); NG PCR NOT DETECTED (Not Detect.)
[2022-08-17 10:53] LABS: BV Int Neg Control Negative (Negative)
[2022-08-17 10:54] LABS: BV Int Pos Control Positive (Positive)
== END 2022-08-16 14:19 | disposition home or self-care (01) ==
LOC: HO.HMGCLDS 14:18
PROVIDERS: Absent Provider Advanced Practice Midwife; PCP Internal Medicine; Visit Provider Internal Medicine
DX: O26.892 Other specified pregnancy related conditions, second trimester (principal); D50.9 Iron deficiency anemia, unspecified; R06.02 Shortness of breath; I10 Essential (primary) hypertension
CPT/HCPCS: 0353U; 36415; 81511; 82306; 82728; 83540; 84443; 85025; 87480; 87510; 87660

== ENCOUNTER → 2022-09-13 11:11 | Outpatient (BNVA) | payer OTHER, SELFPAY | PROVIDERS: PCP Internal Medicine; Visit Provider Advanced Practice Midwife | DX: O09.522 Supervision of elderly multigravida, second trimester (principal); O99.012 Anemia complicating pregnancy, second trimester; D50.9 Iron deficiency anemia, unspecified; O26.892 Other specified pregnancy related conditions, second trimester; R06.82 Tachypnea, not elsewhere classified; Z3A.20 20 weeks gestation of pregnancy | CPT/HCPCS: 99212 ==

== ENCOUNTER 2022-10-25 10:50 | Outpatient (AMB) | payer OTHER, SELFPAY ==
[2022-10-25 10:57] VITALS: BP 96/56; BMI 24.6
--- NOTE | 2022-10-25 10:57 | A.OFFVISPN_ITS ---
Intake Vital Signs 10/25/22 10:57 Height 5 ft 1 in Weight 130 lb BMI 24.6 BP 96/56 L Intake Visit Reasons: CHYNA Technology Specialist Required: No Information Interpreted: non-clinical & clinical Manager Product Support: Manager Product Support Present ([place]arena) Allergies morphine [MORPHINE] Allergy (Intermediate, Verified 10/25/22 10:58) RASH amoxicillin [AMOXICILLIN] Allergy (Unknown, Verified 10/25/22 10:58) UNKNOWN, unknown - childhood gluten Allergy (Unknown, Verified 10/25/22 10:58) Unknown pork derived (porcine) Allergy (Unknown, Verified 10/25/22 10:58) Unknown sulfacetamide Allergy (Unknown, Verified 10/25/22 10:58) rash Is last menstrual period known: Yes Last menstrual period: 04/21/22 Post menopausal: No Patient : Yes [facility] Medical History Acne Cervical strain, acute Encounter to discuss test results H. pylori infection Hx: bad fall Inflammatory arthritis Iron deficiency anemia Low back pain Microcytic hypochromic anemia Migraine Nausea Surgical History History of esophagogastroduodenoscopy (EGD) No pertinent past surgical history Family History Father Medical history non-contributory Diabetes CVD (cardiovascular disease) Mother Medical history non-contributory Brother No problems noted. Brother No problems noted. Sister No problems noted. Sister No problems noted. Son No problems noted. Daughter No problems noted. Daughter No problems noted. Social History Household Members: Spouse and Children Household Members Other:: 3kids Housing: House Alcohol intake: never Patient Tobacco Use Status: Never used Tobacco e-Cigarette/Vaping Use: Never Used Second Hand Smoke Exposure: No Current occupational status: unemployed Cognitive needs: No Hearing needs: No Vision needs: No Female Reproductive History Menstrual Age of Menarche: 13 Duration of menses: 3-5 days Date of last menstrual period: 04/21/22 control method: none Total pregnancies: 4 Full term: 3 Number of Living Children: 3 Date of last pap smear: 08/17/22 (negative) History History 4 Elective abortions 0 Para 3 Spontaneous abortions 0 Hx # Term Pregnancies 3 Ectopic pregnancies 0 Hx # Pregnancies 0 Multiple births 0 Past Pregnancies Del. Date GA/Weeks Outcome Route Wt Inf Gender Labor Barbra Anesthesia Location Provider Complicate 05/05/07 40 live - full term vaginal delivery 8 lb 2 oz Male 24hours epidural [facility] none 11/22/11 40 live - full term vaginal delivery 9 lb 1 oz Femal e 12 hours epidural [facility] none 05/28/13 40 live - full term vaginal delivery 7 lb 6 oz Femal e 3 hours epidural [facility] none Questionnaire History History : 4 Visit AMELIA Calculator Estimated Delivery Date Method Current WG Current Estimate 01/26/23 LMP (Certain) 26w 5d Other Estimates 01/30/23 Ultrasound #1 26w 1d Expected Delivery Route/Plan Vaginal Specific Issues/Plans 36 yr. old G P EDC: 01/26/23, by sure lmp, Blood type: O pos Problem List: 1. AMA 2. Celiac disease 3. Migraines Testing: Panorama: low risk NT scan: wnl AFP: 08/16/22- quad screen neg FAS:ordered Glucose: early 28 wk glucose: CBC 1st Tri: 11.5/36.0/347 28 wk. CBC: GBS: Vaccinations: Flu: Covid: Tdap: Education/Services WIC: CBE: Breast feeding classes: Social Supports/stressors: Living situation: Is with and 3 children Supports: Work/school: Transportation: Labor, and Concerns: Labor support: Plan: Feeding Plans: control: Wants no more babies. 10/25/2022 lengthy discussion between POPs, Mirena, ParaGard or tubal ligation. Considering options-mo'b OB Visit Log Initial Weight: 113 lb Date -?-?-?-?-?-?-?-?-?-?-?-?- EGA Weight Gest Week Fundal Ht Present FHR move Efface % Edema BP PrePreg We Weight GTT -?-?-?-?-?-?-?-?-?-?-?-?- Glucose LV Protein Blood Type 07/11/22 -?-?-?-?-?-?-?-?-?-?-?-?- 11w 4d 117 lb 6 oz (+4 lb 6 oz) 1 17 lb 6 oz -?-?-?-?-?-?-?-?-?-?--?-?- 08/08/22 -?-?-?-?-?-?-?-?-?-?-?-?- 15w 4d 120 lb 2 oz (+7 lb 2 oz) 15 150 100/60 1 20 lb 2 oz -?-?-?-?-?-?-?-?-?-?-?-?- 08/16/22 -?-?-?-?-?-?-?-?-?-?-?-?- 16w 5d 122 lb (+9 lb) 16 140 absent 100/62 1 22 lb -?-?-?-?-?-?-?-?-?-?-?-?- 09/13/22 -?-?-?-?-?-?-?-?-?-?-?-?- 20w 5d 125 lb 2 oz (+12 lb 2 oz) 20 140 active 106/62 125 lb 2 oz -?-?-?-?-?-?-?-?-?-?-?-?- 10/25/22 -?-?-?-?-?-?-?-?-?-?-?-?- 26w 5d 130 lb (+17 lb) 28 140 active 96/56 1 30 lb -?-?-?-?-?-?-?-?-?-?-?-?- Notes Visit Date: 10/25/22 Last Updated by: Kristin Lopez CNM Patient is here 26 weeks and 5 days she says her breathing is a little bit better and she has had less frequent periods of rapid breathing. She is still taking her iron and her vitamins every day sometime she forgets but she always tries to remember at some point in the day she does not necessarily take them at the same time though she usually takes her vitamins at night. She is feeling last discomforts from the . She does complain of leg cramps at night and sometimes her legs are twitch she at before they start cramping, sometimes her urine is medium yellow recommend she try to drink more water and I showed her some gentle stretches to do to stretch out her leg muscles and also I recom mend magnesium 250 mg tablets once or twice a day and consider taking 1 of them before bedtime and she can even take 1 in the middle of the night if she wakes up with leg cramps her daughter helps her with her leg cramps by massaging . She is able to do the 1 hour sugar test and the CBC today and will go after this visit. She had a visit scheduled with Dr. Allen but her daughter was sick that day and she could not go and it has not been rescheduled yet they told her they would call her but she did not get a call. I asked her to check on that I initiated discussion about control she does not want any more babies but is not sure about what she wants to do and is concerned about side effects and any complications from any method she has heard of the various methods including the Mirena and the ParaGard and the Nexplanon and pills. Side effects for all of these methods was discussed and I gave her a brochure about the Mirena and ParaGard she tends to get very heavy periods with lots of clots so in her case a ParaGard might not be the best. And I explained why. [facility] Visit Date: 09/13/22 Last Updated by: Kristin Lopez CNM Lengthy visit with patient today she is at 20 weeks and 5 days. She still experiences the periods of rapid breathing problems and does not have the stamina that she used to and feels she can not do a lot. She had lab work done with her primary care provider and has felt frustrated in that she has called but has not received calls back. She was told that she was a little bit anemic. She said she was told to take iron and vitamin-C [id number]. I did review her labs her TSH was within normal limits and the CBC was mildly low though there was some indices indicating some iron deficiency. I offered her a referral to Dr. Allen who she has seen in the past. She said she would like that and I placed the referral. I asked her to share her symptoms and experiences and see if Dr. Allen felt that she should see someone else as well. Discussed the challenges of multiparity and the strains on one's body and the anticipatory guidance about coming sensations suggested abdominal support when the time comes that she may want to buy online or in [place] also suggested ways to support abdomen with fabrics and scarves but she did not think that would work. She does sometimes gets a little vaginal itching and burning not much but she would like a cream that she can have for when she needs it for yeast infections and depending if it is just a little bit on the outside or if it is very severe she can use it either just outside or internally for a severe yeast infection. She scored 16 on the EPDS today and I discussed how she is feeling she said she the answers that earned her that school or were in relation to when she is not feeling well and she is worried about what is going on and does not feel like herself and does not feel her concerns have been fully addressed medically. She is not interested in talking to somebody for therapist and she smiled. She is interested however in seeing Dr. Allen and thinks it would be very helpful for her.. Additionally we talked about family planning she does not want any more babies after this 1 and wanted to talk about permanence and getting her tubes tied and I did discuss the surgery in that would be considered a minor surgery but it does come with risks of infection cutting the wrong organ bleeding and the risks of anesthesia. She feels that her back is been not well ever since having epidurals in the past. She also inquired about a that she would request and I discussed that normally that that is not done and that there are risks associated with that as well but if she did feel that that was something she wanted to pursue we would have to transfer her care earlier so that that could be discussed further with the delivering providers though I did not expect it would be something that would happen. She had long labors and she is not looking forward to the laboring process again Also discussed other methods of control that can be used for longer periods of time including the ParaGard IUD and how it works the Mirena IU S and how it works and tubal ligation. She has her FA S ultrasound on Sunday unfortunately her is working so many jobs that she is going to be going alone. We will see her again in 4 weeks. Visit Date: 08/16/22 Last Updated by: Kristin Lopez CNM Patient is here for her visit with physical exam. She is feeling much better since then she was the last time she is not having any of the tachypnea today though she did have some yesterday it comes for a while and then it has to go on its own and nothing she does changes it. Breathing was completely normal approximately 16 respirations per minute, and at a normal rate today and her pulse was 88. She has an appointment with her primary care provider at 01:00 o'clock today and she is going to be discussing this with her as well I discussed the possibility that perhaps she has some underlying pulmonary issue such as asthma or something that is aggravating things. Normal physical exam today the only thing of note was that her cervix was extremely friable when the blade of the speculum touched it and it bled quite briskly. It is was able to be stopped with the scope pets. Discussed her AMELIA discussed her normal panoramic I had already ordered her normal FA S ultrasound and I ordered her AFP to be done today as well. I reviewed all of the dating issues with her and she wanted it all written down including probable date of conception and I devoted all down for her, is seen her sure LMP as the baseline Visit Date: 08/08/22 Last Updated by: Kristin Lopez CNM Patient is here scheduled for the OB PE visit but she says she was not told about it and she asked about it but it was not explained to her so she is not prepared for an internal exam today. She tells me that very frequently josiah ost all the time she has been having trouble breathing it feels like she can not quite take her breath. She feels like she is suffocating she is not wheezing she does not have a cough she does not have a fever and denies feeling ill. She says she felt like this in her other when she was 5-6 months along but not early in her and she attributes this to the . Her cheeks are flushed but in remembering her appearance this is the way she appears in life. She says she has been to the same day care place urgent care at [place] but the last time was a couple of months ago and they told her that nothing was wrong. She says it happens more in the evenings today during this visit she is breathing rapidly and shallowly lungs are clear to auscultation with no wheezes or rales. RR is 32 but after a short while it reverted to 20-24. Pulse rate when it was rapid was 100 and later reverted to a 82. Pulse ox was 98. Her heart had a regular rate and rhythm with no gallops or murmurs audible. Temp was 97.8 degrees. Fundal height consistent with 15 weeks gestation FHT strong. Patient says she is not able to drink a lot and wondered if she was dehydrated she was not able to urinate at the beginning of the visit but did so at the end her urine was slightly concentrated with a specific gravity 1.0-5 and only a trace of ketones. Not sufficient to warrant IV hydration. I did talk to her about where she would need to go if she was having any obstetrical emergency and I recommend if this happens again to consider being seen at the time that she is experiencing it at the urgent care. Or please to call her primary care provider. I coached her in taking is slow inhalations and breathing out slowly through pursed lips to try and just come her breathing down and that actually did seem to benefit her in the moment. She did not really appear despite neck at any point just was breathing mo re rapidly and shallowly. She had no pain and had no other obstetrical complaints. Her next visit will be for the OB physical visit which will be the internal exam and that can be at her convenience and the visit after that would be in 4 weeks and I put in the order for her OB anatomy survey in 4-5 weeks which will be done at [facility]. I also re stressed how the birthing center was closed so we would not able to accommodate more urgent care of obstetrical issues here any more. Visit Date: 07/11/22 Last Updated by: WALKER Sullivan is here for her Nurse intake today. LMP 04/21/22 AMELIA 01/26/23. AMELIA by u/s on 06/07/22 @6.2 wks =AMELIA 01/29/23. Pt is having some nausea, she is taking the vitamin B6, and feels that is it helping. Discussedwith pt to eat more frequent, smaller meals. Try to keep well hydrated with 7-10 glasses of H2O. Pt had her 3 children here at [facility], all vaginal births, denies any complications with her pregnancies or deliveries. She is aware she will deliver at [facility]. Discussed NT u/s with pt, and genetic tests due to her AMA, will schedule appt for pt. She denies any use of alcohol or drugs. She is aware she can use Tylenol for her migraines. Pt is c/o some shortness of breath today. She denies any chest pain. She reports ''it goes away after a few hours''. Berenice mane with pt she nees to call her PCP today to discuss her symptoms and make appt. Discussed going to ED for her symptoms and pt declined. Good FHT heard today. packet given to pt., she will have her labs drawn today. Pt scheduled for OB Phys on 08/08/22. Pt aware if any problems or concerns to call office. She is aware if any problems after hours or weekends she will be directed to [facility]. Pt verbs understanding. Pt has had her Covid shots and boosters. Assessment & Plan Assessment & Plan (1) Microcytic hypochromic anemia: Code(s): D50.9 - Iron deficiency anemia, unspecified Category: Medical (2) Supervision of normal in second trimester: Code(s): Z34.92 - Encounter for supervision of normal , unspecified, second trimester Category: Medical Orders: Orders Glucose 1 Hour PP 50gm Dose Today D50.9 - Iron deficiency anemia, unspecified, Z34.92 - Encounter for supervision of normal , unspecified, second trimester Complete Blood Count no Diff Today D50.9 - Iron deficiency anemia, unspecified, Z34.92 - Encounter for supervision of normal , unspecified, second trimester Coding Level of Care Code [place] Diagnoses Microcytic hypochromic anemia D50.9 Supervision of normal in second trimester Z34.92
== END 2022-10-25 12:07 | disposition home or self-care (01) ==
LOC: HO.HWS 10:50
PROVIDERS: PCP Internal Medicine; Visit Provider Advanced Practice Midwife
DX: D50.9 Iron deficiency anemia, unspecified (principal); Z34.92 Encounter for supervision of normal pregnancy, unspecified, second trimester
CPT/HCPCS: 25942

== ENCOUNTER → 2022-10-25 10:50 | Outpatient (BNVA) | payer OTHER, SELFPAY | LOC: CF 12:29 | PROVIDERS: PCP Internal Medicine; Visit Provider Advanced Practice Midwife | DX: O09.523 Supervision of elderly multigravida, third trimester (principal); O99.012 Anemia complicating pregnancy, second trimester; D50.9 Iron deficiency anemia, unspecified; Z3A.26 26 weeks gestation of pregnancy | CPT/HCPCS: 99212 ==

== ENCOUNTER 2022-10-30 14:35 | Outpatient (REF) | payer OTHER, SELFPAY ==
[2022-10-30 17:55] LABS: Hematocrit 35.3 % (37.0-47.0); Hemoglobin 11.3 g/dl (12.0-16.0); Mean Corpuscular Hemoglobin 28.3 pg (27.0-33.0); Mean Corpuscular Volume 88.3 fL (80.0-98.0); Mean Platelet Volume 11.4 fL (9.4-12.3); Platelet Count 310 X10*3/uL (160-400); Red Cell Distribution Width 14.8 % (11.0-16.0)
[2022-10-30 18:26] LABS: Glucose 1 Hour PP 50gm Dose 183 mg/dL (60-140)
== END 2022-10-30 14:36 | disposition home or self-care (01) ==
LOC: HO.LAB 14:35
PROVIDERS: PCP Internal Medicine; Visit Provider Advanced Practice Midwife
DX: O26.892 Other specified pregnancy related conditions, second trimester (principal); D50.9 Iron deficiency anemia, unspecified; O09.512 Supervision of elderly primigravida, second trimester
CPT/HCPCS: 36415; 82950; 85027

== ENCOUNTER 2022-11-08 11:34 | Outpatient (AMB) | payer OTHER, SELFPAY ==
[2022-11-08 11:35] VITALS: BP 90/58; BMI 24.7
--- NOTE | 2022-11-08 11:35 | A.OFFVISPN_ITS ---
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 pylori infection Hx: bad fall Inflammatory arthritis Iron deficiency anemia Low back pain Microcytic hypochromic anemia Migraine Nausea Surgical History History of esophagogastroduodenoscopy (EGD) No pertinent past surgical history Family History Father Medical history non-contributory Diabetes CVD (cardiovascular disease) Mother Medical history non-contributory Brother No problems noted. Brother No problems noted. Sister No problems noted. Sister No problems noted. Son No problems noted. Daughter No problems noted. Daughter No problems noted. Social History Household Members: Spouse and Children Household Members Other:: 3kids Housing: House Alcohol intake: never Patient Tobacco Use Status: Never used Tobacco e-Cigarette/Vaping Use: Never Used Second Hand Smoke Exposure: No Current occupational status: unemployed Cognitive needs: No Hearing needs: No Vision needs: No Female Reproductive History Menstrual Age of Menarche: 13 History History 4 Elective abortions 0 Para 3 Spontaneous abortions 0 Hx # Term Pregnancies 3 Ectopic pregnancies 0 Hx # Pregnancies 0 Multiple births 0 Past Pregnancies Del. Date GA/Weeks Outcome Route Wt Inf Gender Labor Barbra Anesthesia Location Provider Complicate 05/05/07 40 live - full term vaginal delivery 8 lb 2 oz Male 24hours epidural [facility] none 11/22/11 40 live - full term vaginal delivery 9 lb 1 oz Femal e 12 hours epidural [facility] none 05/28/13 40 live - full term vaginal delivery 7 lb 6 oz Femal e 3 hours epidural [facility] none Visit AMELIA Calculator Estimated Delivery Date Method Current WG Current Estimate 01/26/23 LMP (Certain) 28w 5d Other Estimates 01/30/23 Ultrasound #1 28w 1d Expected Delivery Route/Plan Vaginal Specific Issues/Plans 36 yr. old G P EDC: 01/26/23, by sure lmp, Blood type: O pos Problem List: 1. AMA 2. Celiac disease 3. Migraines 4. Elevated 1 hour sugar test equals 183, 3 hour pending. Testing: Panorama: low risk NT scan: wnl AFP: 08/16/22- quad screen neg FAS:ordered Glucose: early 28 wk glucose: =183, 3 hour GTT ordered.... CBC 1st Tri: 11.5/36.0/347 28 wk. CBC: 11.3 /35.3 /310 GBS: Vaccinations: Flu: Covid: Tdap: Education/Services WIC: CBE: Breast feeding classes: Social Supports/stressors: Living situation: Is with and 3 children Supports: Work/school: Transportation: Labor, and Concerns: Labor support: Plan: Feeding Plans: control: Wants no more babies. 10/25/2022 lengthy discussion between POPs, Mirena, ParaGard or tubal ligation. Considering options-mo'b OB Visit Log Initial Weight: 113 lb Date -?-?-?-?-?-?-?-?-?-?-?-?- EGA Weight Gest Week Fundal Ht Present FHR move Efface % Edema BP PrePreg We Weight GTT -?-?-?-?-?-?-?-?-?-?-?-?- Glucose LV Protein Blood Type 07/11/22 -?-?-?-?-?-?-?-?-?-?-?-?- 11w 4d 117 lb 6 oz (+4 lb 6 oz) 1 17 lb 6 oz -?-?-?-?-?-?-?-?-?-?-?-?- 08/08/22 -?-?-?-?-?-?-?-?-?-?-?-?- 15w 4d 120 lb 2 oz (+7 lb 2 oz) 15 150 100/60 1 20 lb 2 oz -?-?-?-?-?-?-?-?-?-?-?-?- 08/16/22 -?-?-?-?-?-?-?-?-?-?-?-?- 16w 5d 122 lb (+9 lb) 16 140 absent 100/62 1 22 lb -?-?-?-?-?-?-?-?-?-?-?-?- 09/13/22 -?-?-?-?-?-?--?-?-?-?-?-?- 20w 5d 125 lb 2 oz (+12 lb 2 oz) 20 140 active 106/62 125 lb 2 oz -?-?-?-?-?-?-?-?-?-?-?-?- 10/25/22 -?-?-?-?-?-?-?-?-?-?-?-?- 26w 5d 130 lb (+17 lb) 28 140 active 96/56 1 30 lb -?-?-?-?-?-?-?-?-?-?-?-?- 11/08/22 -?-?-?-?-?-?-?-?-?-?-?-?- 28w 5d 130 lb 8 oz (+17 lb 8 oz) 29 150 active 90/58 130 lb 8 oz -?-?-?-?-?-?-?-?-?-?-?-?- Notes Visit Date: 11/08/22 Last Updated by: Kristin Lopez CNM Here for pn v. still gets the difficulty breathing when she gets up in th am. her hgb was 11.1, but her 1 hour sugar test was 183. She spoke with the nurses this morning who explained the need for the 3 hour sugar test and to be fasting after midnight and that she did not need an appointment but she would have to stay at the lab for at least 3 hours to get the full complete testing I also explained the issue in she had concerns about whether not this is indicated a possible risk for diabetes in the future her father has diabetes and has to use insulin and fact he has had heart attack and he also had heart surgery and is paralyzed on 1 side and is not doing well and she began to cry discussing how he is. Discussed that gestational diabetes while it may go way right after the does indicate of increased tendency towards diabetes in future life but so does her family history as well. Reviewed her diet which sounds balanced culturally though does have some sort of bread at every meal by her description. She is also experiencing some round ligament pain on right and left sides explained abdominal support as well. She for got to brain picker the magnesium in the [facility] so she still is experiencing the tingling and cramping in her legs so I reminded her to try it and also to make sure she drinks enough water. She also requested that I resend the referral to Dr. Allen is a office because she has not heard from them yet for an appointment. I placed a note and a referral indicating this and resent it. She will try to do the 3 hour sugar test tomorrow and we will see her in 2 weeks if it is okay. Discussed that if she is in fact diabetic then we would need to initiate transfer process to [facility] because there would be increased surveillance needed for the and I did discuss the risks and challenges of diabetes in and its effects on the fetus and our concerns. Visit Date: 10/25/22 Last Updated by: Kristin Lopez CNM Patient is here 26 weeks and 5 days she says her breathing is a little bit better and she has had less frequent periods of rapid breathing. She is still taking her iron and her vitamins every day sometime she forgets but she always tries to remember at some point in the day she does not necessarily take them at the same time though she usually takes her vitamins at night. She is feeling last discomforts from the . She does complain of leg cramps at night and sometimes her legs are twitch she at before they start cramping, sometimes her urine is medium yellow recommend she try to drink more water and I showed her some gentle stretches to do to stretch out her leg muscles and also I recommend magnesium 250 mg tablets once or twice a day and consider taking 1 of them before bedtime and she can even take 1 in the middle of the night if she wakes up with leg cramps her daughter helps her with her leg cramps by massaging . She is able to do the 1 hour sugar test and the CBC today and will go after this visit. She had a visit scheduled with Dr. Allen but her daughter was sick that day and she could not go and it has not been rescheduled yet they told her they would call her but she did not get a call. I asked her to check on that I initiated discussion about control she does not want any more babies but is not sure about what she wants to do and is concerned about side effects and any complications from any method she has heard of the various methods including the Mirena and the ParaGard and the Nexplanon and pills. Side effects for all of these methods was discussed and I gave her a brochure about the Mirena and ParaGard she tends to get very heavy periods with lots of clots so in her case a ParaGard might not be the best. And I explained why. [facility] 2w Visit Date: 09/13/22 Last Updated by: Kristin Lopez CNM Lengthy visit with patient today she is at 20 weeks and 5 days. She still experiences the periods of rapid breathing problems and does not have the stamina that she used to and feels she can not do a lot. She had lab work done with her primary care provider and has felt frustrated in that she has called but has not received calls back. She was told that she was a little bit anemic. She said she was told to take iron and vitamin-C [id number]. I did review her labs her TSH was within normal limits and the CBC was mildly low though there was some indices indicating some iron deficiency. I offered her a referral to Dr. Allen who she has seen in the past. She said she would like that and I placed the referral. I asked her to share her symptoms and experiences and see if Dr. Allen felt that she should see someone else as well. Discussed the challenges of multiparity and the strains on one's body and the anticipatory guidance about coming sensations suggested abdominal support when the time comes that she may want to buy online or in [facility] also suggested ways to support abdomen with fabrics and scarves but she did not think that would work. She does sometimes gets a little vaginal itching and burning not much but she would like a cream that she can have for when she needs it for yeast infections and depending if it is just a little bit on the outside or if it is very severe she can use it either just outside or internally for a severe yeast infection. She scored 16 on the EPDS today and I discussed how she is feeling she said she the answers that earned her that school or were in relation to when she is not feeling well and she is worried about what is going on and does not feel like herself and does not feel her concerns have been fully addressed medically. She is not interested in talking to somebody for therapist and she smiled. She is interested however in seeing Dr. Allen and thinks it would be very helpful for her.. Additionally we talked about family planning she does not want any more babies after this 1 and wanted to talk about permanence and getting her tubes tied and I did discuss the surgery in that would be considered a minor surgery but it does come with risks of infection cutting the wrong organ bleeding and the risks of anesthesia. She feels that her back is been not well ever since having epidurals in the past. She also inquired about a that she would request and I discussed that normally that that is not done and that there are risks associated with that as well but if she did feel that that was something she wanted to pursue we would have to transfer her care earlier so that that could be discussed further with the delivering providers though I did not expect it would be something that would happen. She had long labors and she is not looking forward to the laboring process again Also discussed other methods of control that can be used for longer periods of time including the ParaGard IUD and how it works the Mirena IU S and how it works and tubal ligation. She has her FA S ultrasound on Sunday unfortunately her is working so many jobs that she is going to be going alone. We will see her again in 4 weeks. Visit Date: 08/16/22 Last Updated by: Kristin Lopez CNM Patient is here for her visit with physical exam. She is feeling much better since then she was the last time she is not having any of the tachypnea today though she did have some yesterday it comes for a while and then it has to go on its own and nothing she does changes it. Breathing was completely normal approximately 16 respirations per minute, and at a normal rate today and her pulse was 88. She has an appointment with her primary care provider at 01:00 o'clock today and she is going to be discussing this with her as well I discussed the possibility that perhaps she has some underlying pulmonary issue such as asthma or something that is aggravating things. Normal physical exam today the only thing of note was that her cervix was extremely friable when the blade of the speculum touched it and it bled quite briskly. It is was able to be stopped with the scope pets. Discussed her AMELIA discussed her normal panoramic I had already ordered her normal FA S ultrasound and I ordered her AFP to be done today as well. I reviewed all of the dating issues with her and she wanted it all written down including probable date of conception and I devoted all down for her, is seen her sure LMP as the baseline Visit Date: 08/08/22 Last Updated by: Kristin Lopez CNM Patient is here scheduled for the OB PE visit but she says she was not told about it and she asked about it but it was not explained to her so she is not prepared for an internal exam today. She tells me that very frequently almost all the time she has been having trouble breathing it feels like she can not quite take her breath. She feels like she is suffocating she is not wheezing she does not have a cough she does not have a fever and denies feeling ill. She says she felt like this in her other when she was 5-6 months along but not early in her and she attributes this to the . Her cheeks are flushed but in remembering her appearance this is the way she appears in life. She says she has been to the same day care place urgent care at [place] but the last time was a couple of months ago and they told her that nothing was wrong. She says it happens more in the evenings today during this visit she is breathing rapidly and shallowly lungs are clear to auscultation with no wheezes or rales. RR is 32 but after a short while it reverted to 20-24. Pulse rate when it was rapid was 100 and later reverted to a 82. Pulse ox was 98. Her heart had a regular rate and rhythm with no gallops or murmurs audible. Temp was 97.8 degrees. Fundal height consistent with 15 weeks gestation FHT strong. Patient says she is not able to drink a lot and wondered if she was dehydrated she was not able to urinate at the beginning of the visit but did so at the end her urine was slightly concentrated with a specific gravity 1.0-5 and only a trace of ketones. Not sufficient to warrant IV hydration. I did talk to her about where she would need to go if she was having any obstetrical emergency and I recommend if this happens again to consider being seen at the time that she is experiencing it at the urgent care. Or please to call her primary care provider. I coached her in taking is slow inhalations and breathing out slowly through pursed lips to try and just come her breathing down and that actually did seem to benefit her in the moment. She did not really appear despite neck at any point just was breathing more rapidly and shallowly. She had no pain and had no other obstetrical complaints. Her next visit will be for the OB physical visit which will be the internal exam and that can be at her convenience and the visit after that would be in 4 weeks and I put in the order for her OB anatomy survey in 4-5 weeks which will be done at [facility]. I also re stressed how the birthing center was closed so we would not able to accommodate more urgent care of obstetrical issues here any more. Visit Date: 07/11/22 Last Updated by: WALKER Sullivan is here for her Nurse intake today. LMP 04/21/22 AMELIA 01/26/23. AMELIA by u/s on 06/07/22 @6.2 wks =AEMLIA 01/29/23. Pt is having some nausea, she is taking the vitamin B6, and feels that is it helping. Discussedwith pt to eat more frequent, smaller meals. Try to keep well hydrated with 7-10 glasses of H2O. Pt had her 3 children here at [facility], all vaginal births, denies any complications with her pregnancies or deliveries. She is aware she will deliver at [facility] [place]. Discussed NT u/s with pt, and genetic tests due to her AMA, will schedule appt for pt. She denies any use of alcohol or drugs. She is aware she can use Tylenol for her migraines. Pt is c/o some shortness of breath today. She denies any chest pain. She reports ''it goes away after a few hours''. Discissed with pt she nees to call her PCP today to discuss her symptoms and make appt. Discussed going to ED for her symptoms and pt declined. Good FHT heard today. packet given to pt., she will have her labs drawn today. Pt scheduled for OB Phys on 08/08/22. Pt aware if any problems or concerns to call office. She is aware if any problems after hours or weekends she will be directed to [facility]. Pt verbs understanding. Pt has had her Covid shots and boosters. Results Reviewed Results Reviewed: 28w labs Assessment & Plan Assessment & Plan (1) Elevated glucose tolerance test: Code(s): R73.09 - Other abnormal glucose Category: Medical (2) Microcytic hypochromic anemia: Code(s): D50.9 - Iron deficiency anemia, unspecified Category: Medical (3) Supervision of normal in second trimester: Code(s): Z34.92 - Encounter for supervision of normal , unspecified, second trimester Category: Medical Coding Level of Care Code Nikhil Diagnoses Elevated glucose tolerance test R73.09 Microcytic hypochromic anemia D50.9 Supervision of normal in second trimester Z34.92
== END 2022-11-08 12:50 | disposition home or self-care (01) ==
LOC: HO.HWS 11:34
PROVIDERS: PCP Internal Medicine; Visit Provider Advanced Practice Midwife
DX: R73.09 Other abnormal glucose (principal); D50.9 Iron deficiency anemia, unspecified; Z34.92 Encounter for supervision of normal pregnancy, unspecified, second trimester
CPT/HCPCS: 25942; S3005

== ENCOUNTER → 2022-11-08 11:34 | Outpatient (BNVA) | payer OTHER, SELFPAY | PROVIDERS: PCP Internal Medicine; Visit Provider Advanced Practice Midwife | DX: O09.523 Supervision of elderly multigravida, third trimester (principal); O99.810 Abnormal glucose complicating pregnancy; O99.013 Anemia complicating pregnancy, third trimester; D50.9 Iron deficiency anemia, unspecified; Z3A.28 28 weeks gestation of pregnancy | CPT/HCPCS: 99212 ==

== ENCOUNTER 2022-11-09 08:10 | Outpatient (REF) | payer OTHER, SELFPAY ==
[2022-11-09 09:14] LABS: Glucose Fasting 79 mg/dL (60-99)
[2022-11-09 11:23] LABS: Glucose 1 Hour 215 mg/dL
[2022-11-09 11:27] LABS: Glucose 2 Hour 190 mg/dL
[2022-11-09 13:24] LABS: Glucose 3 Hour 155 mg/dL
== END 2022-11-09 08:11 | disposition home or self-care (01) ==
LOC: HO.LAB 08:10
PROVIDERS: Visit Provider Advanced Practice Midwife
DX: R73.09 Other abnormal glucose (principal)
CPT/HCPCS: 36415; 82951

== ENCOUNTER → 2022-11-13 09:08 | Outpatient (BNVA) | payer OTHER, SELFPAY | PROVIDERS: PCP Internal Medicine; Visit Provider Advanced Practice Midwife | DX: O24.410 Gestational diabetes mellitus in pregnancy, diet controlled (principal); Z3A.29 29 weeks gestation of pregnancy | CPT/HCPCS: 99211 ==

== ENCOUNTER 2022-11-22 10:37 | Outpatient (AMB) | payer OTHER, SELFPAY ==
--- NOTE | 2022-11-22 10:51 | MHC.OFFVISPN ---
Intake Vital Signs 11/22/22 10:56 Height 5 ft 1 in Weight 131 lb BMI 24.7 BP 100/56 L Intake Visit Reasons: CHYNA Team Guide Required: No Allergies morphine [MORPHINE] Allergy (Intermediate, Verified 11/22/22 10:56) RASH amoxicillin [AMOXICILLIN] Allergy (Unknown, Verified 11/22/22 10:56) UNKNOWN, unknown - childhood gluten Allergy (Unknown, Verified 11/22/22 10:56) Unknown pork derived (porcine) Allergy (Unknown, Verified 11/22/22 10:56) Unknown sulfacetamide Allergy (Unknown, Verified 11/22/22 10:56) rash Medication List - Last Reconciled 11/22/22 by Kristin Lopez CNM blood sugar diagnostic (FreeStyle Lite Strips) four times a day blood-glucose meter (FreeStyle [place] Lite kit) four times a day cholecalciferol (vitamin D3) 50 mcg PO DAILY ferrous sulfate 324 mg PO DAILY lancets (FreeStyle Lancets) four times as day PNV,calcium [id number] acid 27 mg iron- 1 mg ( Vitamins Plus Low Iron) 1 tab PO DAILY Is last menstrual period known: Yes Last menstrual period: 04/21/22 Post menopausal: No Patient : Yes PFSH Medical History Acne Cervical strain, acute Encounter to discuss test results H. pylori infection Hx: bad fall Inflammatory arthritis Iron deficiency anemia Low back pain Microcytic hypochromic anemia Migraine Nausea Surgical History History of esophagogastroduodenoscopy (EGD) No pertinent past surgical history Family History Father Medical history non-contributory Diabetes CVD (cardiovascular disease) Mother Medical history non-contributory Brother No problems noted. Brother No problems noted. Sister No problems noted. Sister No problems noted. Son No problems noted. Daughter No problems noted. Daughter No problems noted. Social History Household Members: Spouse and Children Household Members Other:: 3kids Housing: House Alcohol intake: never Patient Tobacco Use Status: Never used Tobacco e-Cigarette/Vaping Use: Never Used Second Hand Smoke Exposure: No Current occupational status: unemployed Cognitive needs: No Hearing needs: No Vision needs: No Female Reproductive History Menstrual Age of Menarche: 13 Duration of menses: 3-5 days Date of last menstrual period: 04/21/22 control method: none Total pregnancies: 4 Full term: 3 Number of Living Children: 3 Date of last pap smear: 08/17/22 (negative) History History 4 Elective abortions 0 Para 3 Spontaneous abortions 0 Hx # Term Pregnancies 3 Ectopic pregnancies 0 Hx # Pregnancies 0 Multiple births 0 Past Pregnancies Del. Date GA/Weeks Outcome Route Wt Inf Gender Labor Barbra Anesthesia Location Provider Complicate 05/05/07 40 live - full term vaginal delivery 8 lb 2 oz Male 24hours epidural [facility] none 11/22/11 40 live - full term vaginal delivery 9 lb 1 oz Female 12 hours epidural [facility] none 05/28/13 40 live - full term vaginal delivery 7 lb 6 oz Female 3 hours epidural [facility] none Questionnaire History History : 4 Visit AMELIA Calculator Estimated Delivery Date Method Current WG Current Estimate 01/26/23 LMP (Certain) 30w 5d Other Estimates 01/30/23 Ultrasound #1 30w 1d Expected Delivery Route/Plan Vaginal Specific Issues/Plans 36 yr. old G P EDC: 01/26/23, by sure lmp, Blood type: O pos Problem List: 1. AMA 2. Celiac disease 3. Migraines 4. GDM-- 1'ftd=183; 3' Gtt elevated= 79/215/190/155. pt to start qid testing, needs teaching, reeval and will need transfer to [facility] for management and surveillance... anticipatory teaching done 11/08, will need more... has first appt at [facility] is 11/30 and 12/06. Testing: Panorama: low risk NT scan: wnl AFP: 08/16/22- quad screen neg FAS:ordered Glucose: early 28 wk glucose: =183, 3 hour GTT ordered.... CBC 1st Tri: 11.5/36.0/347 28 wk. CBC: 11.3 /35.3 /310 GBS: Vaccinations: Flu: Covid: Tdap: Education/Services WIC: CBE: Breast feeding classes: Social Supports/stressors: Living situation: Is with and 3 children Supports: Work/school: Transportation: Labor, and Concerns: Labor support: Plan: Feeding Plans: control: Wants no more babies. 10/25/2022 lengthy discussion between POPs, Mirena, ParaGard or tubal ligation. Considering options-mo'b OB Visit Log Initial Weight: 113 lb Date <del>?</del> EGA Weight Gest Week Fundal Ht Present FHR move Efface % Edema BP PrePreg We Weight GTT <del>?</del> Glucose LV Protein Blood Type 07/11/22 <del>?</del> 11w 4d 117 lb 6 oz (+4 lb 6 oz) 117 lb 6 oz <del>?</del> 08/08/22 <del>?</del> 15w 4d 120 lb 2 oz (+7 lb 2 oz) 15 150 100/60 120 lb 2 oz <del>?</del> 08/16/22 <del>?</del> 16w 5d 122 lb (+9 lb) 16 140 absent 100/62 122 lb <del>?</del> 09/13/22 <del>?</del> 20w 5d 125 lb 2 oz (+12 lb 2 oz) 20 140 active 106/62 125 lb 2 oz <del>?</del> 10/25/22 <del>?</del> 26w 5d 130 lb (+17 lb) 28 140 active 96/56 130 lb <del>?</del> 11/08/22 <del>?</del> 28w 5d 130 lb 8 oz (+17 lb 8 oz) 29 150 active 90/58 130 lb 8 oz <del>?</del> 11/22/22 <del>?</del> 30w 5d 131 lb (+18 lb) 30 160 active 100/56 131 lb <del>?</del> Notes Visit Date: 11/22/22 Last Updated by: Kristin Lopez CNM Patient is here for her visit at 30 weeks and 5 days. Since the last visit she was diagnosed with gestational diabetes. With her elevated blood sugars all being the post Glucola ones her levels were 79/215/190/155. She was educated on GDM and given supplies and has started testing her blood sugar though she has not been able to do it 4 times a day consistently and of 16 recorded blood sugars 12 of the post prandial ones are very slightly elevated with 1 more elevated because she had had a Coca-Cola with dinner. She is beginning to understand which things raise her blood sugars and which ones do not and she does try to check her blood sugars as frequently as she can but if she is out with her children it has been hard. I did ask her to re double her efforts in this way and to continue to pay close attention to what she is eating and keep careful records which she is trying to do. She has an appointment at [facility] on 11/30 22 and a follow-up appointment after that also on 12/06/2022. I asked her to keep track of her blood sugars and be more careful and also that it is possible that once a complete full week of blood sugars can be evaluated it is possible that she may indeed need to start on a medication to help manage the blood sugars in the normal range she is very anxious about the effects of any of the medicine or insulin on her baby and I did let her know that it is better to have well-controlled blood sugars then high blood sugars for the health of her baby and explained the deliterious effects of hyperglycemia and . We will see her weekly until she is transferred and hopefully at the next visit we will have a complete record of blood sugars in order to more completely and accurately evaluate whether not need for medication exists. I wished her well in the rest of her care with her transfer and assured her she will be well taken care of. Records of her sugars and diet will be scanned into the chart today at at my request. Additionally she has not really had any problems with breathing fast as she had before she is having occasional lower back pain and I did show her some lower back stretches to do. Visit Date: 11/08/22 Last Updated by: Kristin Lopez CNM Here for pn v. still gets the difficulty breathing when she gets up in th am. her hgb was 11.1, but her 1 hour sugar test was 183. She spoke with the nurses this morning who explained the need for the 3 hour sugar test and to be fasting after midnight and that she did not need an appointment but she would have to stay at the lab for at least 3 hours to get the full complete testing I also explained the issue in she had concerns about whether not this is indicated a possible risk for diabetes in the future her father has diabetes and has to use insulin and fact he has had heart attack and he also had heart surgery and is paralyzed on 1 side and is not doing well and she began to cry discussing how he is. Discussed that gestational diabetes while it may go way right after the does indicate of increased tendency towards diabetes in future life but so does her family history as well. Reviewed her diet which sounds balanced culturally though does have some sort of bread at every meal by her description. She is also experiencing some round ligament pain on right and left sides explained abdominal support as well. She for got to cone picker the magnesium in the [facility] so she still is experiencing the tingling and cramping in her legs so I reminded her to try it and also to make sure she drinks enough water. She also requested that I resend the referral to Dr. Allen is a office because she has not heard from them yet for an appointment. I placed a note and a referral indicating this and resent it. She will try to do the 3 hour sugar test tomorrow and we will see her in 2 weeks if it is okay. Discussed that if she is in fact diabetic then we would need to initiate transfer process to [facility] because there would be increased surveillance needed for the and I did discuss the risks and challenges of diabetes in and its effects on the fetus and our concerns. Visit Date: 10/25/22 Last Updated by: Kristin Lopez CNM Patient is here 26 weeks and 5 days she says her breathing is a little bit better and she has had less frequent periods of rapid breathing. She is still taking her iron and her vitamins every day sometime she forgets but she always tries to remember at some point in the day she does not necessarily take them at the same time though she usually takes her vitamins at night. She is feeling last discomforts from the . She does complain of leg cramps at night and sometimes her legs are twitch she at before they start cramping, sometimes her urine is medium yellow recommend she try to drink more water and I showed her some gentle stretches to do to stretch out her leg muscles and also I recommend magnesium 250 mg tablets once or twice a day and consider taking 1 of them before bedtime and she can even take 1 in the middle of the night if she wakes up with leg cramps her daughter helps her with her leg cramps by massaging . She is able to do the 1 hour sugar test and the CBC today and will go after this visit. She had a visit scheduled with Dr. Allen but her daughter was sick that day and she could not go and it has not been rescheduled yet they told her they would call her but she did not get a call. I asked her to check on that I initiated discussion about control she does not want any more babies but is not sure about what she wants to do and is concerned about side effects and any complications from any method she has heard of the various methods including the Mirena and the ParaGard and the Nexplanon and pills. Side effects for all of these methods was discussed and I gave her a brochure about the Mirena and ParaGard she tends to get very heavy periods with lots of clots so in her case a ParaGard might not be the best. And I explained why. [facility] 2w Visit Date: 09/13/22 Last Updated by: Kristin Lopez CNM Lengthy visit with patient today she is at 20 weeks and 5 days. She still experiences the periods of rapid breathing problems and does not have the stamina that she used to and feels she can not do a lot. She had lab work done with her primary care provider and has felt frustrated in that she has called but has not received calls back. She was told that she was a little bit anemic. She said she was told to take iron and vitamin-C [id number]-bli-hulprpy. I did review her labs her TSH was within normal limits and the CBC was mildly low though there was some indices indicating some iron deficiency. I offered her a referral to Dr. Allen who she has seen in the past. She said she would like that and I placed the referral. I asked her to share her symptoms and experiences and see if Dr. Allen felt that she should see someone else as well. Discussed the challenges of multiparity and the strains on one's body and the anticipatory guidance about coming sensations suggested abdominal support when the time comes that she may want to buy online or in [employer] also suggested ways to support abdomen with fabrics and scarves but she did not think that would work. She does sometimes gets a little vaginal itching and burning not much but she would like a cream that she can have for when she needs it for yeast infections and depending if it is just a little bit on the outside or if it is very severe she can use it either just outside or internally for a severe yeast infection. She scored 16 on the EPDS today and I discussed how she is feeling she said she the answers that earned her that school or were in relation to when she is not feeling well and she is worried about what is going on and does not feel like herself and does not feel her concerns have been fully addressed medically. She is not interested in talking to somebody for therapist and she smiled. She is interested however in seeing Dr. Allen and thinks it would be very helpful for her.. Additionally we talked about family planning she does not want any more babies after this 1 and wanted to talk about permanence and getting her tubes tied and I did discuss the surgery in that would be considered a minor surgery but it does come with risks of infection cutting the wrong organ bleeding and the risks of anesthesia. She feels that her back is been not well ever since having epidurals in the past. She also inquired about a that she would request and I discussed that normally that that is not done and that there are risks associated with that as well but if she did feel that that was something she wanted to pursue we would have to transfer her care earlier so that that could be discussed further with the delivering providers though I did not expect it would be something that would happen. She had long labors and she is not looking forward to the laboring process again Also discussed other methods of control that can be used for longer periods of time including the ParaGard IUD and how it works the Mirena IU S and how it works and tubal ligation. She has her FA S ultrasound on Sunday unfortunately her is working so many jobs that she is going to be going alone. We will see her again in 4 weeks. Visit Date: 08/16/22 Last Updated by: Kristin Lopez CNM Patient is here for her visit with physical exam. She is feeling much better since then she was the last time she is not having any of the tachypnea today though she did have some yesterday it comes for a while and then it has to go on its own and nothing she does changes it. Breathing was completely normal approximately 16 respirations per minute, and at a normal rate today and her pulse was 88. She has an appointment with her primary care provider at 01:00 o'clock today and she is going to be discussing this with her as well I discussed the possibility that perhaps she has some underlying pulmonary issue such as asthma or something that is aggravating things. Normal physical exam today the only thing of note was that her cervix was extremely friable when the blade of the speculum touched it and it bled quite briskly. It is was able to be stopped with the scope pets. Discussed her AMELIA discussed her normal panoramic I had already ordered her normal FA S ultrasound and I ordered her AFP to be done today as well. I reviewed all of the dating issues with her and she wanted it all written down including probable date of conception and I devoted all down for her, is seen her sure LMP as the baseline Visit Date: 08/08/22 Last Updated by: Kristin Lopez CNM Patient is here scheduled for the OB PE visit but she says she was not told about it and she asked about it but it was not explained to her so she is not prepared for an internal exam today. She tells me that very frequently almost all the time she has been having trouble breathing it feels like she can not quite take her breath. She feels like she is suffocating she is not wheezing she does not have a cough she does not have a fever and denies feeling ill. She says she felt like this in her other when she was 5-6 months along but not early in her and she attributes this to the . Her cheeks are flushed but in remembering her appearance this is the way she appears in life. She says she has been to the [facility] day care [facility] urgent care at [place] but the last time was a couple of months ago and they told her that nothing was wrong. She says it happens more in the evenings today during this visit she is breathing rapidly and shallowly lungs are clear to auscultation with no wheezes or rales. RR is 32 but after a short while it reverted to 20-24. Pulse rate when it was rapid was 100 and later reverted to a 82. Pulse ox was 98. Her heart had a regular rate and rhythm with no gallops or murmurs audible. Temp was 97.8 degrees. Fundal height consistent with 15 weeks gestation FHT strong. Patient says she is not able to drink a lot and wondered if she was dehydrated she was not able to urinate at the beginning of the visit but did so at the end her urine was slightly concentrated with a specific gravity 1.0-5 and only a trace of ketones. Not sufficient to warrant IV hydration. I did talk to her about where she would need to go if she was having any obstetrical emergency and I recommend if this happens again to consider being seen at the time that she is experiencing it at the urgent care. Or please to call her primary care provider. I coached her in taking is slow inhalations and breathing out slowly through pursed lips to try and just come her breathing down and that actually did seem to benefit her in the moment. She did not really appear despite neck at any point just was breathing more rapidly and shallowly. She had no pain and had no other obstetrical complaints. Her next visit will be for the OB physical visit which will be the internal exam and that can be at her convenience and the visit after that would be in 4 weeks and I put in the order for her OB anatomy survey in 4-5 weeks which will be done at [facility]. I also re stressed how the birthing center was closed so we would not able to accommodate more urgent care of obstetrical issues here any more. Visit Date: 07/11/22 Last Updated by: WALKER Sullivan is here for her Nurse intake today. LMP 04/21/22 AMELIA 01/26/23. AMELIA by u/s on 06/07/22 @6.2 wks =AMELIA 01/29/23. Pt is having some nausea, she is taking the vitamin B6, and feels that is it helping. Discussedwith pt to eat more frequent, smaller meals. Try to keep well hydrated with 7-10 glasses of H2O. Pt had her 3 children here [facility], all vaginal births, denies any complications with her pregnancies or deliveries. She is aware she will deliver at [facility]. Discussed NT u/s with pt, and genetic tests due to her AMA, will schedule appt for pt. She denies any use of alcohol or drugs. She is aware she can use Tylenol for her migraines. Pt is c/o some shortness of breath today. She denies any chest pain. She reports ''it goes away after a few hours''. Discissed with pt she nees to call her PCP today to discuss her symptoms and make appt. Discussed going to ED for her symptoms and pt declined. Good FHT heard today. packet given to pt., she will have her labs drawn today. Pt scheduled for OB Phys on 08/08/22. Pt aware if any problems or concerns to call office. She is aware if any problems after hours or weekends she will be directed to [facility]. Pt verbs understanding. Pt has had her Covid shots and boosters. Assessment & Plan Assessment & Plan (1) Gestational diabetes mellitus (GDM) affecting , antepartum: Code(s): O24.419 - Gestational diabetes mellitus in , unspecified control Category: Medical Coding Level of Care Code Nikhil Diagnoses Gestational diabetes mellitus (GDM) affecting , antepartum O24.419
[2022-11-22 10:56] VITALS: BP 100/56; BMI 24.7
== END 2022-11-22 12:08 | disposition home or self-care (01) ==
LOC: HO.HWS 10:37
PROVIDERS: PCP Internal Medicine; Visit Provider Advanced Practice Midwife
DX: O24.419 Gestational diabetes mellitus in pregnancy, unspecified control (principal)
CPT/HCPCS: 25942

== ENCOUNTER → 2022-11-22 10:37 | Outpatient (BNVA) | payer OTHER, SELFPAY | PROVIDERS: PCP Internal Medicine; Visit Provider Advanced Practice Midwife | DX: O09.523 Supervision of elderly multigravida, third trimester (principal); O24.419 Gestational diabetes mellitus in pregnancy, unspecified control; Z3A.30 30 weeks gestation of pregnancy | CPT/HCPCS: 99212 ==

== ENCOUNTER 2022-11-29 12:57 | Outpatient (AMB) | payer OTHER, SELFPAY ==
--- NOTE | 2022-11-29 12:58 | A.OFFVISPN_ITS ---
Intake Vital Signs 11/29/22 13:03 Height 5 ft 1 in Weight 131 lb 2 oz BMI 24.8 BP 98/52 L Blood Pressure Location Rt brachial Intake Visit Reasons: CHYNA Allergies morphine [MORPHINE] Allergy (Intermediate, Verified 11/29/22 13:03) RASH amoxicillin [AMOXICILLIN] Allergy (Unknown, Verified 11/29/22 13:03) UNKNOWN, unknown - childhood gluten Allergy (Unknown, Verified 11/29/22 13:03) Unknown pork derived (porcine) Allergy (Unknown, Verified 11/29/22 13:03) Unknown sulfacetamide Allergy (Unknown, Verified 11/29/22 13:03) rash Medication List - Last Reconciled 11/29/22 by Kristin Lopez CNM blood sugar diagnostic (FreeStyle Lite Strips) four times a day blood-glucose meter (FreeStyle [place] Lite kit) four times a day cholecalciferol (vitamin D3) 50 mcg PO DAILY ferrous sulfate 324 mg PO DAILY lancets (FreeStyle Lancets) four times as day PNV,calcium [id number] acid 27 mg iron- 1 mg ( Vitamins Plus Low Iron) 1 tab PO DAILY PFSH Medical History Acne Cervical strain, acute Encounter to discuss test results H. pylori infection Hx: bad fall Inflammatory arthritis Iron deficiency anemia Low back pain Microcytic hypochromic anemia Migraine Nausea Surgical History History of esophagogastroduodenoscopy (EGD) No pertinent past surgical history Family History Father Medical history non-contributory Diabetes CVD (cardiovascular disease) Mother Medical history non-contributory Brother No problems noted. Brother No problems noted. Sister No problems noted. Sister No problems noted. Son No problems noted. Daughter No problems noted. Daughter No problems noted. Social History Household Members: Spouse and Children Household Members Other:: 3kids Housing: House Alcohol intake: never Patient Tobacco Use Status: Never used Tobacco e-Cigarette/Vaping Use: Never Used Second Hand Smoke Exposure: No Current occupational status: unemployed Cognitive needs: No Hearing needs: No Vision needs: No Female Reproductive History Menstrual Age of Menarche: 13 History History 4 Elective abortions 0 Para 3 Spontaneous abortions 0 Hx # Term Pregnancies 3 Ectopic pregnancies 0 Hx # Pregnancies 0 Multiple births 0 Past Pregnancies Del. Date GA/Weeks Outcome Route Wt Inf Gender Labor Barbra Anesthesia Location Provider Complicate 05/05/07 40 live - full term vaginal delivery 8 lb 2 oz Male 24hours epidural [facility] none 11/22/11 40 live - full term vaginal delivery 9 lb 1 oz Femal e 12 hours epidural [facility] none 05/28/13 40 live - full term vaginal delivery 7 lb 6 oz Femal e 3 hours epidural [facility] none Visit AMELIA Calculator Estimated Delivery Date Method Current WG Current Estimate 01/26/23 LMP (Certain) 31w 5d Other Estimates 01/30/23 Ultrasound #1 31w 1d Expected Delivery Route/Plan Vaginal Specific Issues/Plans 36 yr. old G P EDC: 01/26/23, by sure lmp, Blood type: O pos Problem List: 1. AMA 2. Celiac disease 3. Migraines 4. GDM-- 1'nyg=018; 3' Gtt elevated= 79/215/190/155. pt to start qid testing, needs teaching, reeval and will need transfer to [facility] for management and surveillance... anticipatory teaching done 11/08, will need more... has first appt at [facility] is 11/30 and 12/06. Testing: Panorama: low risk NT scan: wnl AFP: 08/16/22- quad screen neg FAS:ordered Glucose: early 28 wk glucose: =183, 3 hour GTT ordered.... CBC 1st Tri: 11.5/36.0/347 28 wk. CBC: 11.3 /35.3 /310 GBS: Vaccinations: Flu: Covid: Tdap: Education/Services WIC: CBE: Breast feeding classes: Social Supports/stressors: Living situation: Is with and 3 children Supports: Work/school: Transportation: Labor, and Concerns: Labor support: Plan: Infant Feeding Plans: control: Wants no more babies. 10/25/2022 lengthy discussion between POPs, Mirena, ParaGard or tubal ligation. Considering options-mo'b OB Visit Log Initial Weight: 113 lb Date -?-?-?-?-?-?-?-?-?-?-?-?- EGA Weight Gest Week Fundal Ht Present FHR move Efface % Edema BP PrePreg We Weight GTT -?-?-?--?-?-?-?-?-?-?-?-?- Glucose LV Protein Blood Type 07/11/22 -?-?-?-?-?-?-?-?-?-?-?-?- 11w 4d 117 lb 6 oz (+4 lb 6 oz) 1 17 lb 6 oz -?-?-?-?-?-?-?-?-?-?-?-?- 08/08/22 -?-?-?-?-?-?-?-?-?-?-?-?- 15w 4d 120 lb 2 oz (+7 lb 2 oz) 15 150 100/60 1 20 lb 2 oz -?-?-?-?-?-?-?-?-?-?-?-?- 08/16/22 -?-?-?-?-?-?-?-?-?-?-?-?- 16w 5d 122 lb (+9 lb) 16 140 absent 100/62 1 22 lb -?-?-?-?-?-?-?-?-?-?-?-?- 09/13/22 -?-?-?-?-?-?-?-?-?-?-?-?- 20w 5d 125 lb 2 oz (+12 lb 2 oz) 20 140 active 106/62 125 lb 2 oz -?-?-?-?-?-?-?-?-?-?-?-?- 10/25/22 -?-?-?-?-?-?-?-?-?-?-?-?- 26w 5d 130 lb (+17 lb) 28 140 active 96/56 1 30 lb -?-?-?-?-?--?-?-?-?-?-?-?- 11/08/22 -?-?-?-?-?-?-?-?-?-?-?-?- 28w 5d 130 lb 8 oz (+17 lb 8 oz) 29 150 active 90/58 130 lb 8 oz -?-?-?-?-?-?-?-?-?-?-?-?- 11/22/22 -?-?-?-?-?-?-?-?-?-?-?-?- 30w 5d 131 lb (+18 lb) 30 160 active 100/56 131 lb -?-?-?-?-?-?-?-?-?-?-?-?- 11/29/22 -?-?-?-?-?-?-?-?-?-?-?-?- 31w 5d 131 lb 2 oz (+18 lb 2 oz) 32 vtx 150 active 98/52 131 lb 2 oz -?-?-?-?-?-?-?-?-?-?-?-?- Notes Visit Date: 11/29/22 Last Updated by: Kristin Lopez CNM Patient is here for her last visit at [facility] before transfer tomorrow 11/30/2022. She brought her blood sugars with her again and she has been trying to keep track this week. Most of her fastings are less than 90 with only 1 at 97 and her other blood sugars are range from elevated to less than 120 depending on what she has eaten in general most of her breakfast this are within normal range however if she has increased bread or carbohydrates at a meal they are elevated 100% of her lunch is are elevated but review of her lunch is reveals that they tend to be composed of starches and breads and rice her dinner is usually fish and vegetables and they are within normal limits with the exception of 1 time when she had added bread. Reviewed alternative sources of protein when she can not cook meat or fish and is not in the mood to have another egg. She does like nuts though she does not eat peanut butter. She will re double her efforts and review her blood sugars with her providers at [facility] I did tell her that it is possible that she might need some medication but discussed the varying effects of carbohydrates versus protein and other food groups on her blood sugars. Care from this point on will be at [facility]. She did not want to discuss control in front of her children who came with her to the visit today. Visit Date: 11/22/22 Last Updated by: Kristin Lopez CNM Patient is here for her visit at 30 weeks and 5 days. Since the last visit she was diagnosed with gestational diabetes. With her elevated blood sugars all being the post Glucola ones her levels were 79/215/190/155. She was educated on GDM and given supplies and has started testing her blood sugar though she has not been able to do it 4 times a day consistently and of 16 recorded blood sugars 12 of the post prandial ones are very slightly elevated with 1 more elevated because she had had a Coca-Cola with dinner. She is beginning to understand which things raise her blood sugars and which ones do not and she does try to check her blood sugars as frequently as she can but if she is out with her children it has been hard. I did ask her to re double her efforts in this way and to continue to pay close attention to what she is eating and keep careful records which she is trying to do. She has an appointment at [facility] on 11/30 22 and a follow-up appointment after that also on 12/06/2022. I asked her to keep track of her blood sugars and be more careful and also that it is possible that once a complete full week of blood sugars can be evaluated it is possible that she may indeed need to start on a medication to help manage the blood sugars in the normal range she is very anxious about the effects of any of the medicine or insulin on her baby and I did let her know that it is better to have well-controlled blood sugars then high blood sugars for the health of her baby and explained the deliterious effects of hyperglycemia and . We will see her weekly until she is transferred and hopefully at the next visit we will have a complete record of blood sugars in order to more completely and accurately evaluate whether not need for medication exists. I wished her well in the rest of her care with her transfer and assured her she will be well taken care of. Records of her sugars and diet will be scanned into the chart today at at my request. Additionally she has not really had any problems with breathing fast as she had before she is having occasional lower back pain and I did show her some lower back stretches to do. Visit Date: 11/08/22 Last Updated by: Kristin Lopez CNM Here for pn v. still gets the difficulty breathing when she gets up in th am. her hgb was 11.1, but her 1 hour sugar test was 183. She spoke with the nurses this morning who explained the need for the 3 hour sugar test and to be fasting after midnight and that she did not need an appointment but she would have to stay at the lab for at least 3 hours to get the full complete testing I also explained the issue in she had concerns about whether not this is indicated a possible risk for diabetes in the future her father has diabetes and has to use insulin and fact he has had heart attack and he also had heart surgery and is paralyzed on 1 side and is not doing well and she began to cry discussing how he is. Discussed that gestational diabetes while it may go way right after the does indicate of increased tendency towards diabetes in future life but so does her family history as well. Reviewed her diet which sounds balanced culturally though does have some sort of bread at every meal by her description. She is also experiencing some round ligament pain on right and left sides explained abdominal support as well. She for got to nut picker the magnesium in the [facility] so she still is experiencing the tingling and cramping in her legs so I reminded her to try it and also to make sure she drinks enough water. She also requested that I resend the referral to Dr. Allen is a office because she has not heard from them yet for an appointment. I placed a note and a referral indicating this and resent it. She will try to do the 3 hour sugar test tomorrow and we will see her in 2 weeks if it is okay. Discussed that if she is in fact diabetic then we would need to initiate transfer process to [facility] because there would be increased surveillance needed for the and I did discuss the risks and challenges of diabetes in and its effects on the fetus and our concerns. Visit Date: 10/25/22 Last Updated by: Kristin Lopez CNM Patient is here 26 weeks and 5 days she says her breathing is a little bit better and she has had less frequent periods of rapid breathing. She is still taking her iron and her vitamins every day sometime she forgets but she always tries to remember at some point in the day she does not necessarily take them at the same time though she usually takes her vitamins at night. She is feeling last discomforts from the . She does complain of leg cramps at night and sometimes her legs are twitch she at before they start cramping, sometimes her urine is medium yellow recommend she try to drink more water and I showed her some gentle stretches to do to stretch out her leg muscles and also I recommend magnesium 250 mg tablets once or twice a day and consider taking 1 of them before bedtime and she can even take 1 in the middle of the night if she wakes up with leg cramps her daughter helps her with her leg cramps by massaging . She is able to do the 1 hour sugar test and the CBC today and will go after this visit. She had a visit scheduled with Dr. Allen but her daughter was sick that day and she could not go and it has not been rescheduled yet they told her they would call her but she did not get a call. I asked her to check on that I initiated discussion about control she does not want any more babies but is not sure about what she wants to do and is concerned about side effects and any complications from any method she has heard of the various methods including the Mirena and the ParaGard and the Nexplanon and pills. Side effects for all of these methods was discussed and I gave her a brochure about the Mirena and ParaGard she tends to get very heavy periods with lots of clots so in her case a ParaGard might not be the best. And I explained why. [facility] 2w Visit Date: 09/13/22 Last Updated by: Kristin Lopez CNM Lengthy visit with patient today she is at 20 weeks and 5 days. She still experiences the periods of rapid breathing problems and does not have the stamina that she used to and feels she can not do a lot. She had lab work done with her primary care provider and has felt frustrated in that she has called but has not received calls back. She was told that she was a little bit anemic. She said she was told to take iron and vitamin-C [id number]. I did review her labs her TSH was within normal limits and the CBC was mildly low though there was some indices indicating some iron deficiency. I offered her a referral to Dr. Allen who she has seen in the past. She said she would like that and I placed the referral. I asked her to share her symptoms and experiences and see if Dr. Allen felt that she should see someone else as well. Discussed the challenges of multiparity and the strains on one's body and the anticipatory guidance about coming sensations suggested abdominal support when the time comes that she may want to buy online or in [employer] also suggested ways to support abdomen with fabrics and scarves but she did not think that would work. She does sometimes gets a little vaginal itching and burning not much but she would like a cream that she can have for when she needs it for yeast in fections and depending if it is just a little bit on the outside or if it is very severe she can use it either just outside or internally for a severe yeast infection. She scored 16 on the EPDS today and I discussed how she is feeling she said she the answers that earned her that school or were in relation to when she is not feeling well and she is worried about what is going on and does not feel like herself and does not feel her concerns have been fully addressed medically. She is not interested in talking to somebody for therapist and she smiled. She is interested however in seeing Dr. Allen and thinks it would be very helpful for her.. Additionally we talked about family planning she does not want any more babies after this 1 and wanted to talk about permanence and getting her tubes tied and I did discuss the surgery in that would be considered a minor surgery but it does come with risks of infection cutting the wrong organ bleeding and the risks of anesthesia. She feels that her back is been not well ever since having epidurals in the past. She also inquired about a that she would request and I discussed that normally that that is not done and that there are risks associated with that as well but if she did feel that that was something she wanted to pursue we would have to transfer her care earlier so that that could be discussed further with the delivering providers though I did not expect it would be something that would happen. She had long labors and she is not looking forward to the laboring process again Also discussed other methods of control that can be used for longer periods of time including the ParaGard IUD and how it works the Mirena IU S and how it works and tubal ligation. She has her FA S ultrasound on Sunday unfortunately her is working so many jobs that she is going to be going alone. We will see her again in 4 weeks. Visit Date: 08/16/22 Last Updated by: Kristin Lopez CNM Patient is here for her visit with physical exam. She is feeling much better since then she was the last time she is not having any of the tachypnea today though she did have some yesterday it comes for a while and then it has to go on its own and nothing she does changes it. Breathing was completely normal approximately 16 respirations per minute, and at a normal rate today and her pulse was 88. She has an appointment with her primary care provider at 01:00 o'clock today and she is going to be discussing this with her as well I discussed the possibility that perhaps she has some underlying pulmonary issue such as asthma or something that is aggravating things. Normal physical exam today the only thing of note was that her cervix was extremely friable when the blade of the speculum touched it and it bled quite briskly. It is was able to be stopped with the scope pets. Discussed her AMELIA discussed her normal panoramic I had already ordered her normal FA S ultrasound and I ordered her AFP to be done today as well. I reviewed all of the dating issues with her and she wanted it all written down including probable date of conception and I devoted all down for her, is seen her sure LMP as the baseline Visit Date: 08/08/22 Last Updated by: Kristin Lopez CNM Patient is here scheduled for the OB PE visit but she says she was not nathen d about it and she asked about it but it was not explained to her so she is not prepared for an internal exam today. She tells me that very frequently almost all the time she has been having trouble breathing it feels like she can not quite take her breath. She feels like she is suffocating she is not wheezing she does not have a cough she does not have a fever and denies feeling ill. She says she felt like this in her other when she was 5-6 months along but not early in her and she attributes this to the . Her cheeks are flushed but in remembering her appearance this is the way she appears in life. She says she has been to the same day care place urgent care at [place] but the last time was a couple of months ago and they told her that nothing was wrong. She says it happens more in the evenings today during this visit she is breathing rapidly and shallowly lungs are clear to auscultation with no wheezes or rales. RR is 32 but after a short while it reverted to 20-24. Pulse rate when it was rapid was 100 and later reverted to a 82. Pulse ox was 98. Her heart had a regular rate and rhythm with no gallops or murmurs audible. Temp was 97.8 degrees. Fundal height consistent with 15 weeks gestation FHT strong. Patient says she is not able to drink a lot and wondered if she was dehydrated she was not able to urinate at the beginning of the visit but did so at the end her urine was slightly concentrated with a specific gravity 1.0-5 and only a trace of ketones. Not sufficient to warrant IV hydration. I did talk to her about where she would need to go if she was having any obstetrical emergency and I recommend if this happens again to consider being seen at the time that she is experiencing it at the urgent care. Or please to call her primary care provider. I coached her in taking is slow inhalations and breathing out slowly through pursed lips to try and just come her breathing down and that actually did seem to benefit her in the moment. She did not really appear despite neck at any point just was breathing more rapidly and shallowly. She had no pain and had no other obstetrical complaints. Her next visit will be for the OB physical visit which will be the internal exam and that can be at her convenience and the visit after that would be in 4 weeks and I put in the order for her OB anatomy survey in 4-5 weeks which will be done at [facility]. I also re stressed how the birthing center was closed so we would not able to accommodate more urgent care of obstetrical issues here any more. Visit Date: 07/11/22 Last Updated by: WALKER Sullivan is here for her Nurse intake today. LMP 04/21/22 AMELIA 01/26/23. AMELIA by u/s on 06/07/22 @6.2 wks =AMELIA 01/29/23. Pt is having some nausea, she is taking the vitamin B6, and feels that is it helping. Discussedwith pt to eat more frequent, smaller meals. Try to keep well hydrated with 7-10 glasses of H2O. Pt had her 3 children here at [facility], all vaginal births, denies any complications with her pregnancies or deliveries. She is aware she will deliver at [facility] Discussed NT u/s with pt, and genetic tests due to her AMA, will schedule appt for pt. She denies any use of alcohol or drugs. She is aware she can use Tylenol for her migraines. Pt is c/o some shortness of breath today. She denies any chest pain. She reports ''it goes away after a few hours''. Discissed with pt she nees to call her PCP today to discuss her symptoms and make appt. Discussed going to ED for her symptoms and pt declined. Good FHT heard today. packet given to pt., she will have her labs drawn today. Pt scheduled for OB Phys on 08/08/22. Pt aware if any problems or concerns to call office. She is aware if any problems after hours or weekends she will be directed to [facility]. Pt verbs understanding. Pt has had her Covid shots and boosters. Assessment & Plan Assessment & Plan (1) Gestational diabetes mellitus (GDM) affecting , antepartum: Code(s): O24.419 - Gestational diabetes mellitus in , unspecified control Category: Medical Coding Level of Care Code [place] Diagnoses Gestational diabetes mellitus (GDM) affecting , antepartum O24.419
[2022-11-29 13:03] VITALS: BP 98/52; BMI 24.8
== END 2022-11-29 15:02 | disposition home or self-care (01) ==
LOC: HO.HWS 12:57
PROVIDERS: PCP Internal Medicine; Visit Provider Advanced Practice Midwife
DX: O24.419 Gestational diabetes mellitus in pregnancy, unspecified control (principal); Z3A.31 31 weeks gestation of pregnancy
CPT/HCPCS: 59426

== ENCOUNTER → 2022-11-29 12:57 | Outpatient (BNVA) | payer OTHER, SELFPAY | PROVIDERS: PCP Internal Medicine; Visit Provider Advanced Practice Midwife ==

== ENCOUNTER 2023-06-14 08:00 | Outpatient (AMB) | payer OTHER, SELFPAY ==
[2023-06-14 08:10] VITALS: BP 100/58; PULSE 66; TEMP 36.6; O2SAT 98; BMI 24.7
--- NOTE | 2023-06-14 08:10 | MHC.OFFWIV ---
Intake Vital Signs 06/14/23 08:10 Height 5 ft 1 in Weight 131 lb BMI 24.7 BP 100/58 L Blood Pressure Location Rt brachial Position Sitting Pulse 66 Pulse Source Pulse Oximeter Temp 97.9 F Temp Source Oral Pulse Oximetry (%) 98 Intake Visit Reasons: EP Pain Lower AB 2 weeks Intake Note: pt is here for c.o pain in lower ABD for 2 weeks and feeling like it goes to kidney Patient Tobacco Use Status: Never used Tobacco Allergies morphine [MORPHINE] Allergy (Intermediate, Verified 06/14/23 08:11) RASH amoxicillin [AMOXICILLIN] Allergy (Unknown, Verified 06/14/23 08:11) UNKNOWN, unknown - childhood gluten Allergy (Unknown, Verified 06/14/23 08:11) Unknown pork derived (porcine) Allergy (Unknown, Verified 06/14/23 08:11) Unknown sulfacetamide Allergy (Unknown, Verified 06/14/23 08:11) rash Do you need a note to return to daycare/school/sports/work: Yes HPI HPI Comments History of Present Illness Details 37 y/ o female patient who presents to walk in clinic with c/o lower abdominal pain associated with vaginal discharge x 2 weeks. PFS Medical History Acne Cervical strain, acute Encounter to discuss test results H. pylori infection Hx: bad fall Inflammatory arthritis Iron deficiency anemia Low back pain Microcytic hypochromic anemia Migraine Nausea Surgical History History of esophagogastroduodenoscopy (EGD) No pertinent past surgical history Family History Father Medical history non-contributory Diabetes CVD (cardiovascular disease) Mother Medical history non-contributory Brother No problems noted. Brother No problems noted. Sister No problems noted. Sister No problems noted. Son No problems noted. Daughter No problems noted. Daughter No problems noted. Social History Household Members: Spouse and Children Household Members Other:: 3kids Housing: House Alcohol intake: never Patient Tobacco Use Status: Never used Tobacco e-Cigarette/Vaping Use: Never Used Second Hand Smoke Exposure: No Current occupational status: unemployed Cognitive needs: No Hearing needs: No Vision needs: No Female Reproductive History Menstrual Age of Menarche: 13 Review of Systems Const All systems reviewed & are unremarkable except as noted in HPI and below Physical Exam Vital Signs: Last Vital Signs Temp 97.9 F 06/14/23 08:10 Pulse 66 06/14/23 08:10 BP 100/58 L 06/14/23 08:10 Pulse Ox 98 06/14/23 08:10 BMI result Body Mass Index 24.7 GI Palpation (GI): Soft to palpation and No hepatosplenomegaly present Auscultation: normal bowel sounds General: Yes Bimanual renal exam normal bilaterally and Yes CVA tenderness External Female Exam: normal appearance of the urethra Speculum Exam - Vagina: normal appearance of the vagina, abnormal vaginal discharge white and malodorous and tenderness Speculum Exam - Cervix: Cervical os open, Abnormal cervical discharge present white (off white discharge) and nontender Bimanual exam- vagina & uterus: No Cervical tenderness present Bimanual Exam- Adnexa, other: normal adnexae OB/external & speculum: Deferred OB/external & speculum exam and Cervical os open Back/Spine/Pelvis Back: CVA tenderness Results AMB Urinalysis, Automated UA Leukoctes 15 Natty/uL Last Edit by Pete Allen CMA on 06/14/23 08:27 UA Nitrite Negative Last Edit by Pete Allen CMA on 06/14/23 08:27 UA Urobilinogen 0.2 mg/dL Last Edit by Pete Allen CMA on 06/14/23 08:27 UA Protein 0 mg/dL Last Edit by Pete Allen CMA on 06/14/23 08:27 UA pH 5.5 Last Edit by Pete Allen CMA on 06/14/23 08:27 UA Blood 0 Julito/uL Last Edit by Pete Allen CMA on 06/14/23 08:27 UA Specific [place] 1.030 Last Edit by Pete Allen CMA on 06/14/23 08:27 UA Ketone Negative Last Edit by Pete Allen CMA on 06/14/23 08:27 UA Bilirubin 0 mg/dL Last Edit by Pete Allen CMA on 06/14/23 08:27 UA Glucose 0 mg/dL Last Edit by Pete Allen CMA on 06/14/23 08:27 Results Reviewed Results Reviewed: Laboratory Last Values Urine pH (Auto) 5.5 06/14/23 08:26 Specific [place] (Auto) 1.030 06/14/23 08:26 Urine Protein (Auto) 0 mg/dL 06/14/23 08:26 Glucose (UA)(Auto) 0 mg/dL 06/14/23 08:26 Urine Ketones (Auto) Negative 06/14/23 08:26 Urine Blood (Auto) 0 Julito/uL 06/14/23 08:26 Urine Nitrite (Auto) Negative 06/14/23 08:26 Urine Bilirubin (Auto) 0 mg/dL 06/14/23 08:26 Urine Urobilinogen (Auto) 0.2 mg/dL 06/14/23 08:26 Leukocyte Esterase (Auto) 15 Natty/uL 06/14/23 08:26 Assessment & Plan Assessment & Plan (1) Vaginitis and vulvovaginitis: Code(s): N76.0 - Acute vaginitis Plan: - Take medicine as directed - Hydrate well. (2) Cystitis: Code(s): N30.90 - Cystitis, unspecified without hematuria Plan: - Take medicine as directed. Orders: Orders AMB Urinalysis Automated Today Z13.9 - Encounter for screening, unspecified SureSwab BV CT/NG TMA Today N76.0 - Acute vaginitis UA CC w/rflx Micro + Cult Today N30.90 - Cystitis, unspecified without hematuria Medications: New metronidazole 0.75% 1 appl topical BEDTIME 5 days 45 grams 0RF N76.0 - Acute vaginitis ciprofloxacin HCl 500 mg PO BID 7 days 14 tabs 0RF N30.90 - Cystitis, unspecified without hematuria Coding Level of Care Code Est Pt Level 3 (23459) Diagnoses Vaginitis and vulvovaginitis N76.0 Cystitis N30.90 Time Spent (min) 15
== END 2023-06-14 08:46 | disposition home or self-care (01) ==
PROVIDERS: PCP Internal Medicine; Visit Provider Nurse Practitioner Family
DX: N76.0 Acute vaginitis (principal); N30.90 Cystitis, unspecified without hematuria; R10.30 Lower abdominal pain, unspecified
CPT/HCPCS: 81003; 99213

== ENCOUNTER 2023-06-14 08:34 | Outpatient (REF) | payer OTHER, SELFPAY ==
[2023-06-14 11:02] LABS: Appearance Urine Turbid; Color Urine Yellow; Glucose Urine UA Negative (Negative); Leukocyte Esterase Urine Small (1+) (Negative); Nitrite Urine Negative (Negative); PH 5.5 (5.0-9.0); Specific Gravity - Urine >= 1.030 (1.005-1.025); UMIC TRIGGER UACC YES; Urine Blood Negative (Negative); Urine Ketones Negative (Negative); Urine Protein Negative (Neg-Trace)
[2023-06-14 11:05] LABS: Bacteria Urine Trace (None Seen); Hyaline Casts Urine 0-2 /LPF (0-2); RBC Urine 0-2 /HPF (0-2); UACC Culture Trigger YES; WBC Urine 21-50 /HPF (0-5)
[2023-06-15 16:12] LABS: BV Int Neg Control Negative (Negative); BV Int Pos Control Positive (Positive)
== END 2023-06-14 08:35 | disposition home or self-care (01) ==
LOC: HO.LAB 08:34
PROVIDERS: Visit Provider Nurse Practitioner Family
DX: N30.90 Cystitis, unspecified without hematuria (principal)
CPT/HCPCS: 81001; 81003; 87086; 87480; 87510; 87660

== ENCOUNTER 2023-06-21 08:02 | Outpatient (AMB) | payer OTHER, SELFPAY ==
[2023-06-21 08:17] VITALS: BP 112/70; PULSE 65; TEMP 36.2; O2SAT 99; BMI 25.9
--- NOTE | 2023-06-21 08:17 | MHC.OFFWIV ---
Intake Vital Signs 06/21/23 08:17 Height 5 ft 1 in Weight 137 lb BMI 25.9 BP 112/70 Blood Pressure Location Lt brachial Position Sitting Pulse 65 Pulse Source Pulse Oximeter Temp 97.1 F Temp Source Temporal Artery Scan Pulse Oximetry (%) 99 Oxygen Delivery Method Room Air Intake Visit Reasons: ESt/kidney pain (lobby) Intake Note: pt is here today for kidney pain started 3 weeks ago Patient Tobacco Use Status: Never used Tobacco Allergies morphine [MORPHINE] Allergy (Intermediate, Verified 06/21/23 08:24) RASH amoxicillin [AMOXICILLIN] Allergy (Unknown, Verified 06/21/23 08:24) UNKNOWN, unknown - childhood gluten Allergy (Unknown, Verified 06/21/23 08:24) Unknown pork derived (porcine) Allergy (Unknown, Verified 06/21/23 08:24) Unknown sulfacetamide Allergy (Unknown, Verified 06/21/23 08:24) rash Do you need a note to return to daycare/school/sports/work: No HPI HPI Comments History of Present Illness Details 37 y/o female patient who presents to walk in clinic with c/o lower abd pain, Suprapubic region. Pain started 05/2023 and she was seen by me in May. Urine culture positive for Cystitis and she received Cipro x 7 days. Pelvic Examination was done and Sureswabs collected - Pt was Txd with Metronidazole Gel. Pt reports no improvement, and feels pain getting worse. Pt sexually active with - Condoms. Not on any -control method. Urine HCG today Negative. Does not remember LMP. [facility], [facility] Medical History Acne Cervical strain, acute Encounter to discuss test results H. pylori infection Hx: bad fall Inflammatory arthritis Iron deficiency anemia Low back pain Microcytic hypochromic anemia Migraine Nausea Surgical History History of esophagogastroduodenoscopy (EGD) No pertinent past surgical history Family History Father Medical history non-contributory Diabetes CVD (cardiovascular disease) Mother Medical history non-contributory Brother No problems noted. Brother No problems noted. Sister No problems noted. Sister No problems noted. Son No problems noted. Daughter No problems noted. Daughter No problems noted. Social History Household Members: Spouse and Children Household Members Other:: 3kids Housing: House Alcohol intake: never Patient Tobacco Use Status: Never used Tobacco e-Cigarette/Vaping Use: Never Used Second Hand Smoke Exposure: No Current occupational status: unemployed Cognitive needs: No Hearing needs: No Vision needs: No Female Reproductive History Menstrual Age of Menarche: 13 Review of Systems Const All systems reviewed & are unremarkable except as noted in HPI and below Physical Exam Vital Signs: Last Vital Signs Temp 97.1 F 06/21/23 08:17 Pulse 65 06/21/23 08:17 BP 112/70 06/21/23 08:17 Pulse Ox 99 06/21/23 08:17 Oxygen Delivery Method Room Air 06/21/23 08:17 BMI result Body Mass Index 25.9 Const General: no acute distress; No comfortable Orientation/consciousness: patient oriented x3 GI Other: Large, round and obese Palpation (GI): Soft to palpation, not firm, Tenderness to palpation present (GI) suprapubicly, No hepatosplenomegaly present, no hernias, no masses and No Ascites present Auscultation: normal bowel sounds Other: Pelvic examination Deferred. General: Yes no CVA tenderness Back/Spine/Pelvis Back: no CVA tenderness Neuro General: patient oriented x3 Results AMB Test Urine AMB Test Urine Negative Last Edit by Kamar Flowers on 06/21/23 09:17 AMB Urinalysis, Automated UA Leukoctes 0 Natty/uL Last Edit by Pete Allen CMA on 06/21/23 09:21 UA Nitrite Negative Last Edit by Pete Allen CMA on 06/21/23 09:21 UA Urobilinogen 0.2 mg/dL Last Edit by Pete Allen CMA on 06/21/23 09:21 UA Protein 0 mg/dL Last Edit by Pete Allen CMA on 06/21/23 09:21 UA pH 5.5 Last Edit by Pete Allen CMA on 06/21/23 09:21 UA Blood 0 Julito/uL Last Edit by Pete Allen CMA on 06/21/23 09:21 UA Specific [place] 1.030 Last Edit by Pete Allen CMA on 06/21/23 09:21 UA Ketone Negative Last Edit by Pete Allen CMA on 06/21/23 09:21 UA Bilirubin 0 mg/dL Last Edit by Pete Allen CMA on 06/21/23 09:21 UA Glucose 0 mg/dL Last Edit by Pete Allen CMA on 06/21/23 09:21 Results Reviewed Results Reviewed: Laboratory Last Values Urine pH (Auto) 5.5 06/21/23 09:20 Specific [place] (Auto) 1.030 06/21/23 09:20 Urine Protein (Auto) 0 mg/dL 06/21/23 09:20 Glucose (UA)(Auto) 0 mg/dL 06/21/23 09:20 Urine Ketones (Auto) Negative 06/21/23 09:20 Urine Blood (Auto) 0 Julito/uL 06/21/23 09:20 Urine Nitrite (Auto) Negative 06/21/23 09:20 Urine Bilirubin (Auto) 0 mg/dL 06/21/23 09:20 Urine Urobilinogen (Auto) 0.2 mg/dL 06/21/23 09:20 Leukocyte Esterase (Auto) 0 Natty/uL 06/21/23 09:20 Tst Clinic Negative 06/21/23 09:17 Assessment & Plan Assessment & Plan (1) Lower abdominal pain: Code(s): R10.30 - Lower abdominal pain, unspecified Plan: - Pelvic U/S to r/o Cysts or mass Ovarian - UA negative Plan - 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
== END 2023-06-21 09:35 | disposition home or self-care (01) ==
PROVIDERS: PCP Internal Medicine; Visit Provider Nurse Practitioner Family
DX: R10.30 Lower abdominal pain, unspecified (principal)
CPT/HCPCS: 81003; 99213

== ENCOUNTER 2023-06-22 13:01 | Outpatient (REF) | payer OTHER, SELFPAY ==
--- NOTE | ~2023-06-22 | US_ITS ---
EXAMINATION: US PELVIS CLINICAL INFORMATION: Lower abdominal pain COMPARISON: None available. TECHNIQUE: Ultrasound of the pelvis is performed using both transabdominal and transvaginal transducers along with Doppler. Transvaginal imaging is performed due to inadequate visualization transabdominally. FINDINGS: Uterus: The uterus is anteverted, anteflexed and measures 9.3 x 5.3 x 6.4 The double wall endometrial thickness is 1.23 cm. There is a tiny endometrial cyst measuring 0.3 cm. The uterus is smooth in contour and has normal myometrial echogenicity. No visible fibroid. Adnexa: Both ovaries are visualized. There is normal color flow to the adnexa. There is no ovarian torsion. There is no pelvic ascites or fluid collection. Right ovary measures 4.7 x 3.5 x 3.9 cm and volume 32.6 mL. There is a simple anechoic cyst measuring 4.4 x 2.9 x 3.5 cm. Left ovary measures 2.8 x 2.0 x 1.5 cm and volume 4.4 mL. It appears unremarkable. There is no free fluid in the cul-de-sac. US/US pelvic and transvaginal IMPRESSION: Unremarkable uterus and left ovary. Simple 4.4 cm right ovarian .
== END 2023-06-22 13:02 | disposition home or self-care (01) ==
LOC: HO.HMGCX 13:01
PROVIDERS: PCP Internal Medicine; Visit Provider Nurse Practitioner Family
DX: R10.30 Lower abdominal pain, unspecified (principal)
CPT/HCPCS: 76830; 76856

== ENCOUNTER 2023-06-27 12:54 | Outpatient (AMB) | payer OTHER, SELFPAY ==
--- NOTE | 2023-06-27 13:00 | A.OFFVIS_ITS ---
Intake Vital Signs 06/27/23 13:04 Height 5 ft 1 in Weight 132 lb BMI 24.9 Blood Pressure Location Rt brachial Intake Visit Reasons: lower abd pain Intake Note: Burning pain, consistently there, the intensity varies, nothing she can tell makes it better or worse. Walk in clinic told her it was either a vaginal infection or a kidney infection, neither helped, went 2 weeks ago. Environmental Sampling Technician Required: No Allergies morphine [MORPHINE] Allergy (Intermediate, Verified 06/21/23 08:24) RASH amoxicillin [AMOXICILLIN] Allergy (Unknown, Verified 06/21/23 08:24) UNKNOWN, unknown - childhood gluten Allergy (Unknown, Verified 06/21/23 08:24) Unknown pork derived (porcine) Allergy (Unknown, Verified 06/21/23 08:24) Unknown sulfacetamide Allergy (Unknown, Verified 06/21/23 08:24) rash Is last menstrual period known: Yes Post menopausal: No Patient : No HPI lower abd pain HPI Details Patient is here at the [facility] office for a problem visit. She has been having abdominal pain deep in her abdomen behind her umbilicus and also low down in her pelvis that goes to her back she has had it for more than a month. She has tried to get to be seen by her primary care provider but keeps being given appointments that are 2 months out and is frustrated and so she has come here. She was last year she developed gestational diabetes as well as anemia she was transferred to [facility] because of the gestational diabetes and cared for the latter months of the and she was seen for a labor check and was given a medicine to help her rest and the next day was called in for induction of labor and she was induced for over 24 hours and delivered her baby on January 24. She said the labor was very difficult because of the induction. Her baby is very good she breastfed a little bit at the start but her milk has dried up so now she is bottle-feeding she shared pictures of her beautiful teenage son and 2 daughters and baby and . They are all doing well. She is not interested in control her periods have returned to normal. She denies any constipation she denies any diarrhea it does not matter what she eats she does not have gas. The pain does not change depending on movement or posture or lifting her baby or anything like that. The only thing that she does experience is that she has some frequency of urination and it feels like it simon inside her lower abdomen. She does need to void now so we will obtain a clean-catch urine and she was given clear instructions on obtaining very good clean-catch midstream specimen which we will send to the lab to see if she might have a UTI. She has said she will let me do a pelvic exam since she did not get to return to [facility] for a exam as it was too far. Patient submitted a urine clean-catch test. Drop of clean-catch urine dipsticks negative. Patient was examined the only area of somewhat discomfort was lower abdominal 0 around bladder. Discussed with the patient that while awaiting follow-up with Gastroenterology I would recommend that she be treated for a bladder infection as that is the most likely candidate other than Gastroenterology the patient shared that she had been told that she had been told she had a problem with gluten and she tries to avoid it but not completely. She then shared that 2 weeks ago she went to urgent care at [facility] and they told her she had possibly a kidney infection and they gave her antibiotics for that and a gel for her vagina which she had not shared with me before though she thought she had. Pap smear was found from 2022 that was negative with negative HPV GI biopsy in 2020 showed H pylori among other findings, patient says she can not remember if she took antibiotics then or not. [facility] Medical History (Updated 06/27/23 @ 14:01 by Kristin Lopez CNM) H. pylori infection Abdominal pain Microcytic hypochromic anemia Nausea Encounter to discuss test results Hx: bad fall Low back pain Cervical strain, acute Iron deficiency anemia Migraine Inflammatory arthritis Acne Surgical History History of esophagogastroduodenoscopy (EGD) No pertinent past surgical history Family History Father Medical history non-contributory Diabetes CVD (cardiovascular disease) Mother Medical history non-contributory Brother No problems noted. Brother No problems noted. Sister No problems noted. Sister No problems noted. Son No problems noted. Daughter No problems noted. Daughter No problems noted. Social History Household Members: Spouse and Children Household Members Other:: 3kids Housing: House Alcohol intake: never Patient Tobacco Use Status: Never used Tobacco e-Cigarette/Vaping Use: Never Used Second Hand Smoke Exposure: No Patient : No Current occupational status: unemployed Cognitive needs: No Hearing needs: No Vision needs: No Female Reproductive History Menstrual Age of Menarche: 13 Physical Exam Vital Signs: BMI result Body Mass Index 24.9 Const General: healthy appearing, comfortable, no acute distress, well developed and alert Nutritional Appearance: average body habitus Orientation/consciousness: patient oriented x3 Limitations: no limitations HEENT Head: Yes normocephalic Neck Neck: Yes normal visual inspection Chest Other: Breasts soft nipples everted Chest palpation & inspection: normal inspection of the chest Breast/axilla inspection: normal inspection of the breasts and normal inspection of the axillae Breast/axilla palpation: normal palpation of the breasts and normal palpation of the axillae Resp Effort & Inspection: normal respiratory effort GI Other: Patient nontender even with deep palpation or rebound only area of mild tenderness was with bimanual exam and casing bladder area. patient not tender at uterus store adnexa Negative CVAT Inspection: Yes normal to inspection, No Abdominal wall edema and No distended Palpation (GI): Soft to palpation and nontender Other: Patient ever so slightly uncomfortable with deep palpation of bladder both bimanually and supra pubic only. Vagina pink moist evidence of vaginal laceration has healed but indicates it was deep. Vagina pink and moist cervix multiparous pink moist mobile nontender closed uterus mobile nontender firm adnexa nontender bladder area slightly tender. General: Yes bladder normal to palpation and Yes no CVA tenderness External Female Exam: normal external appearance and normal appearance of the urethra Speculum Exam - Vagina: normal appearance of the vagina, normal palpation and normal vaginal discharge Speculum Exam - Cervix: normal appearance of the cervix, normal palpation and nontender Bimanual exam- vagina & uterus: normal bimanual exam, normal palpation, uterine size normal, bladder normal to palpation, consistency normal, normal palpation, uterine mobility normal, uterine shape normal, No Cervical tenderness present, non-tender and no cervical motion tenderness Bimanual Exam- Adnexa, other: normal adnexae, no masses, normal and No adnexal tenderness Back/Spine/Pelvis Back: no CVA tenderness Neuro General: patient oriented x3 Results AMB Urinalysis, Automated UA Leukoctes 0 Natty/uL Last Edit by Macarena German [place] on 06/27/23 14:03 UA Nitrite Negative Last Edit by Macarena German A on 06/27/23 14:03 UA Urobilinogen 0 mg/dL Last Edit by Macarena German A on 06/27/23 14:03 UA Protein 0 mg/dL Last Edit by Macarena German A on 06/27/23 14:03 UA pH 5 Last Edit by Macarena German A on 06/27/23 14:03 UA Blood 0 Julito/uL Last Edit by Macarena German [facility] on 06/27/23 14:03 UA Specific [place] 1.030 Last Edit by Macarena German A on 06/27/23 14: 03 UA Ketone Negative Last Edit by Macarena German A on 06/27/23 14:03 UA Bilirubin 0 mg/dL Last Edit by Macarena German [facility] on 06/27/23 14:03 UA Glucose 0 mg/dL Last Edit by Macarena German A on 06/27/23 14:03 Results Reviewed Results Reviewed: Laboratory Last Values Urine pH (Auto) 5 06/27/23 14:01 Specific [place] (Auto) 1.030 06/27/23 14:01 Urine Protein (Auto) 0 mg/dL 06/27/23 14:01 Glucose (UA)(Auto) 0 mg/dL 06/27/23 14:01 Urine Ketones (Auto) Negative 06/27/23 14:01 Urine Blood (Auto) 0 Julito/uL 06/27/23 14:01 Urine Nitrite (Auto) Negative 06/27/23 14:01 Urine Bilirubin (Auto) 0 mg/dL 06/27/23 14:01 Urine Urobilinogen (Auto) 0 mg/dL 06/27/23 14:01 Leukocyte Esterase (Auto) 0 Natty/uL 06/27/23 14:01 Assessment & Plan Assessment & Plan (1) Gestational diabetes mellitus (GDM) affecting , antepartum: Code(s): O24.419 - Gestational diabetes mellitus in , unspecified control (2) Abdominal pain: Code(s): R10.9 - Unspecified abdominal pain (3) care and examination: Code(s): Z39.2 - Encounter for routine follow-up (4) Urinary frequency: Code(s): R35.0 - Frequency of micturition (5) H. pylori infection: Comment: 34-year-old female follows up after recent EGD pathology shows H pylori, treat quadruple therapy, ARIANNE 6 weeks, order submitted Patient requested to be called for reminder Code(s): A04.8 - Other specified bacterial intestinal infections Plan History obtained somewhat out of order however review of all recommends to re referral to Gastroenterology and the doctor that she spoke with previously who had done her workup to see if there is something else that needs to be evaluated in that organ system. Patient apparently was treated for cystitis a short time ago at urgent care at the office of her primary care provider however she was given an appointment that she says was too far away for her primary care provider. I urged the patient to try to keep that appointment but I will also Re refer to gastroenterology where she was seen before to help initiate evaluation there sooner In the meantime she was treated with ciprofloxacin at the urgent care office for UTI the only system that I could possibly find some discomfort with is her bladder today, why consider treatment with Bactrim however she is allergic to Bactrim as well as amoxicillin. We will send the UA C&S but only treat if it is indicated. While she is waiting for follow-up with primary care and Gastroenterology, I recommend that she try to get a sooner appointment with her primary.. Orders: Orders AMB Urinalysis Automated Today R10.9 - Unspecified abdominal pain, R35.0 - Frequency of micturition Referrals Gastroenterology Referral A04.8 - Other specified bacterial intestinal infections, R10.9 - Unspecified abdominal pain, R35.0 - Frequency of micturition Coding Level of Care Code Est Pt Level 4 (19389) Diagnoses Gestational diabetes mellitus (GDM) affecting , antepartum O24.419 Abdominal pain R10.9 care and examination Z39.2 Urinary frequency R35.0 H. pylori infection A04.8
[2023-06-27 13:04] VITALS: BMI 24.9
== END 2023-06-27 14:06 | disposition home or self-care (01) ==
PROVIDERS: PCP Internal Medicine; Visit Provider Advanced Practice Midwife
DX: R10.9 Unspecified abdominal pain (principal); R35.0 Frequency of micturition; A04.8 Other specified bacterial intestinal infections
CPT/HCPCS: 99214

== ENCOUNTER → 2023-06-27 12:54 | Outpatient (BNVA) | payer OTHER, SELFPAY | PROVIDERS: PCP Internal Medicine; Visit Provider Advanced Practice Midwife | DX: R10.9 Unspecified abdominal pain (principal); R35.0 Frequency of micturition; A04.8 Other specified bacterial intestinal infections; Z86.32 Personal history of gestational diabetes; Z98.890 Other specified postprocedural states | CPT/HCPCS: 99212 ==

== ENCOUNTER 2023-07-20 11:35 | Outpatient (AMB) | payer OTHER, SELFPAY ==
--- NOTE | 2023-07-20 11:56 | A.OFFPC_ITS ---
Vital Signs 07/20/23 11:57 Height 5 ft 1 in Weight 127 lb BMI 24.0 BP 100/70 Blood Pressure Location Lt brachial Position Sitting Pulse 92 Pulse Source Pulse Oximeter Pulse Oximetry (%) 99 Oxygen Delivery Method Room Air Intake Visit Reasons: follow up from walk in Intake Note: Pt is here today c/o Rt lower abdominal pain f/u walkin no improvement Allergies morphine [MORPHINE] Allergy (Intermediate, Verified 07/22/23 11:54) RASH amoxicillin [AMOXICILLIN] Allergy (Unknown, Verified 07/22/23 11:54) UNKNOWN, unknown - childhood gluten Allergy (Unknown, Verified 07/22/23 11:54) Unknown pork derived (porcine) Allergy (Unknown, Verified 07/22/23 11:54) Unknown sulfacetamide Allergy (Unknown, Verified 07/22/23 11:54) rash Medication List - Last Reconciled 07/22/23 by Sirisha Dior MD No Known Home Meds Tobacco use date assessed: 07/20/23 Dental Screening Dental Screen Date: 07/20/23 Did you have a dental visit in the last 12 months?: Yes Did you have a dental problem in the last 6 months where you did not have access to dental care?: No Was dental information given to patient?: Patient has dentist HPI follow up from [facility] in HPI Details l 37-year-old lady here today complaining of persistent pain in her lower abdomen mainly in her right lower quadrant. Patient states that pain is tear usually with movement, not affected by diet, no change in bowel habits. Denies urinary frequency or urgency. She is 5 months with her 4th child, found to have gestational diabetes, delivered at [facility] . She has been seen at the walk-in clinic for the same complaint approximately 2 months ago and empirically treated for urinary tract infection with antibiotic which has not afforded any relief. Urine cultures and urinalysis have all been negative. She was seen at the OBGYN clinic at [place], with pelvic exam and ultrasound done showing unremarkable findings, except for simple cyst in right over. She has history of positive H pylori infection treated with quadruple therapy twice in 2020. Patient also has been diagnosed with celiac disease , but does not avoid gluten. There was also finding of possible pelvic congestion syndrome on a CT scan done at [facility] in 2020. Patient at that time was referred to an OBGYN at [facility] but no consult report on record . She has an appointment for GI consult scheduled next month. [facility] Medical History Post herpetic neuralgia History of Helicobacter pylori infection Polyarthralgia Fatigue Lower abdominal pain of unknown etiology Microcytic hypochromic anemia Nausea Hx: bad fall Low back pain Migraine Inflammatory arthritis Acne Surgical History History of esophagogastroduodenoscopy (EGD) No pertinent past surgical history Family History Father Medical history non-contributory Diabetes CVD (cardiovascular disease) Mother Medical history non-contributory Brother No problems noted. Brother No problems noted. Sister No problems noted. Sister No problems noted. Son No problems noted. Daughter No problems noted. Daughter No problems noted. Social History Household Members: Spouse and Children Household Members Other:: 3kids Housing: House Alcohol intake: never Patient Tobacco Use Status: Never used Tobacco e-Cigarette/Vaping Use: Never Used Second Hand Smoke Exposure: No Current occupational status: unemployed Cognitive needs: No Hearing needs: No Vision needs: No Female Reproductive History Menstrual Age of Menarche: 13 Questionnaire PHQ-9 Over the last 2 weeks, how often have you been bothered by any of the following problems? 1. Little interest or pleasure in doing things: not at all 2. Feeling down, depressed, or hopeless: not at all 3. Trouble falling or staying asleep, or sleeping too much: several days 4. Feeling tired or having little energy: more than half the days 5. Poor appetite or overeating: several days 6. Feeling bad about yourself - or that you are a failure or have let yourself or your family down: not at all 7. Trouble concentrating on things, such as reading the newspaper or watching television: not at all 8. Moving or speaking so slowly that other people could have noticed. Or the opposite - being so fidgety or restless that you have been moving around a lot more than usual: not at all 9. Thoughts that you would be better off or of hurting yourself in some w ay: not at all Total score: 4 Depression Screening Interpretation: Negative Depression Screening Done: Yes 06120 - PHQ-9 Billing: Yes Source: Developed by Drs. Jorge Baumann, Juan Navarro and colleagues, with an educational jaden from [employer]. Thrive Questionnaire Date Thrive assessed: 07/20/23 I am a: Patient What is your living situation today?: I have a steady place to live Within the past 12 months, did the food you bought not last and you didn't have the money to get more?: Never true Within the past 12 months, did you worry whether your food would run out before you got money to buy more?: Never true Do you have trouble paying for medicines?: No Do you have trouble getting transportation to medical appointments?: No Do you have trouble paying your heating and electricity bill?: No Do you have trouble taking care of your child, family member or friend?: No Do you have trouble with day-to-day activities such as bathing, preparing meals, shopping, managing finances, etc.?: No Are you currently unemployed and looking for a job?: Yes Are you interested in more education?: No THRIVE Score: 0 AUDIT C Alcohol Use Questionnaire (AUDIT-C) 1. How often do you have a drink containing alcohol?: Never Total Score: 0 BERNARDINO-7 AMB Questionnaire BERNARDINO-7 Date BERNARDINO - 7 assessed: 07/20/23 Feeling nervous, anxious, or on edge: 0 = Not at all Not being able to stop or control worryin = Not at all Worrying too much about different things: 0 = Not at all Trouble relaxin = Not at all Being so restless that it is hard to sit still: 0 = Not at all Becoming easily annoyed or irritable: 0 = Not at all Feeling afraid as if something awful might happen: 0 = Not at all Total BERNARDINO-7 score (0-4 normal; 5-9 mild; 10-14 moderate; 15-21 severe): 0 Source: Developed by Drs. Jorge Baumann, Mandy Pruitt, Juan Acharya and colleagues, with an educational jaden from [employer]. BERNARDINO-7 Assessment Billing BERNARDINO-7 Assessment Tool: BERNARDINO-7 Assessment 81373 Review of Systems Const Denies chills, Reports fatigue and Denies fever(s) Eyes Reports no additional complaints ENT Reports no additional complaints Card Denies chest pain, Denies rapid heart rate, Denies irregular heart rhythm and Denies lightheadedness Resp Reports no additional complaints GI Denies diarrhea and Denies nausea Reports as per HPI, Denies abnormal menses, Denies hematuria and Denies difficulty voiding Musc Reports arthralgias, Denies joint swelling and Reports stiffness Skin/Breast Denies rash Neuro Reports no additional complaints Psych Reports no additional complaints Endo Reports no additional complaints and Reports fatigue Abran/Lymph Denies easy bleeding and Denies easy bruising Aller/Immun Reports no additional complaints Physical exam (Primary Care) Vital Signs: Last Vital Signs Pulse 92 07/20/23 11:57 BP 100/70 07/20/23 11:57 Pulse Ox 99 07/20/23 11:57 Oxygen Delivery Method Room Air 07/20/23 11:57 BMI result Body Mass Index 24.0 Tobacco/Smoking Status: Tobacco use Status Tobacco use date assessed 07/20/23 07/20/23 12:00 Patient Tobacco Use Status Never used Tobacco 07/20/23 12:00 e-Cigarette/Vaping Use Never Used 07/20/23 12:00 PHQ-9: PHQ-9 Score PHQ-9: Total score 4 07/22/23 11:53 Depression Screening Interpretation: Negative Thrive Assessment: Date of Thrive Assessment Date Thrive assessed 07/20/23 07/20/23 13:46 Const Other: Alert oriented x3, no acute distress noted, ambulatory with normal gait Orientation/consciousness: patient oriented x3 [facility] Head: Yes normocephalic Ears: external ears normal General nose exam: Normal external nose present Face and sinus: Yes face symmetric Mouth: Normal oral and palatal mucosa present, oropharynx normal and moist mucous membranes Neck Neck: Yes full ROM, Yes no lymphadenopathy, Yes supple and Yes other (Nonpalpable thyroid gland) Resp Auscultation: clear to auscultation bilaterally and no wheezes Cardio Other: S1-S2 present regular rate and rhythm GI Inspection: Yes normal to inspection Palpation (GI): Soft to palpation, Tenderness to palpation present (GI) in the RLQ; with no rebound tenderness and Rovsing's sign negative, no guarding and no masses General: Yes no CVA tenderness Back/Spine/Pelvis Back: no CVA tenderness and No back tenderness Skin General skin exam: no rashes or lesions noted Neuro General: patient oriented x3, gait normal, tone normal, moves all extremities and no focal motor deficits Extrem General: Yes full ROM, Yes no joint enlargement, Yes no pedal edema, Yes no calf tenderness and Yes normal gait Psych Appearance: grossly normal Mental Status: mental status grossly normal Speech and movement: Normal speech and movement present Affect: normal affect Results Reviewed Results Reviewed: Name: Jennifer Maxwell Age/Sex: 35/F : 1985 Unit#: [id number] Attend Dr: Jaylan Schaeffer MD Re06/29/21 Status: [facility]P [facility] SPEC : [id number] ROXANNE: 06/29/21 STATUS: COMP REQ : [id number] RECD: 06/29/[address]: Jaylan Schaeffer MD COMP: 07/02/21-1508 ENTERED: 06/29/21-[address]: Sirisha Dior MD ORDERED: Transglut IgG, Transglut IgA, Gliadin Ab Tobin. Test Result Flag Reference Transglut IgG 2.7 U/mL Value Interpretation ----- <15.0 Antibody not detected > or = 15.0 Antibody detected THIS TEST WAS PERFORMED AT: [facility] [address] [place] [address],[place] [address] SALAZAR DE LA PAZ MD Transglut IgA 10.3 U/mL Value Interpretation ----- <15.0 Antibody not detected > or = 15.0 Antibody detected THIS TEST WAS PERFORMED AT: [facility] [address] [place] [address],[place] [address] SALAZAR DE LA PAZ MD Gliadin IgA Ab 1.5 U/mL Value Interpretation ----- <15.0 Antibody not detected > or = 15.0 Antibody detected Gliadin IgG Ab 73.3 H U/mL Value Interpretation ----- <15.0 Antibody not detected > or = 15.0 Antibody detected THIS TEST WAS PERFORMED AT: [facility] [address] [place] [address],[place] [address] SALAZAR DE LA PAZ MD smita: Jennifer Maxwell Age/Sex: 37/F : 1985 Unit#: [id number] Attend Dr: Kristin Lopez [facility] Re10/30/22 Status: DEP REF Location: .LAB Disch: SPEC : [id number] ROXANNE: 10/30/22 STATUS: COMP REQ : [id number] RECD: 10/30/[address]: Kristin Lopez [facility] COMP: 10/30/22 ENTERED: 10/30/[address]: Sirisha Dior MD ORDERED: CBC No Diff Test Result Flag Reference WBC 10.0 4.8-10.8 X10*3/uL RBC 4.00 L 4.20-5.50 X10*6/uL HGB 11.3 L 12.0-16.0 g/dl HCT 35.3 L 37.0-47.0 % MCV 88.3 80.0-98.0 fL MCH 28.3 27.0-33.0 pg MCHC 32.0 31.0-35.0 g/dl RDW 14.8 11.0-16.0 % PLT 310 160-400 X10*3/uL MPV 11.4 9.4-12.3 fL NRBC Pct Auto 0.0 0.0-0.2 /100WBC NRBC Abs Auto 0.000 0.0-0.012 X10*3/uL Assessment and Plan Assessment & Plan (1) Microcytic hypochromic anemia: Code(s): D50.9 - Iron deficiency anemia, unspecified Plan: Ordered CBC with iron profile (2) Polyarthralgia: Code(s): M25.50 - Pain in unspecified joint Plan: Has been diagnosed by Dr. Izquierdo to have inflammatory arthritis, but has been lost to followup , ordered CRP and sed rate (3) Fatigue: Code(s): R53.83 - Other fatigue Qualifiers: Fatigue type: chronic, unspecified Qualified Code(s): R53.82 - Chronic fatigue, unspecified Plan: Patient is 5 months , will check CBC iron profile, vitamin-D level , vitamin B12 and folic acid, and TSH with free T4 (4) Lower abdominal pain of unknown etiology: Code(s): R10.30 - Lower abdominal pain, unspecified Plan: Has been currently treated for possible urinary tract infection with no improvement, seen already by [facility] OBGYN ultrasound and pelvic exam done showed unremarkable findings. Ordered a comprehensive metabolic panel. Question of celiac disease present as well as pelvic congestion syndrome, she has an appointment for consult with [facility] GI in a month. (5) Celiac disease: Code(s): K90.0 - Celiac disease Plan: Advised to go on a gluten free diet, keep appointment with [facility] GI next month. (6) Gestational diabetes mellitus (GDM) affecting , antepartum: Code(s): O24.419 - Gestational diabetes mellitus in , unspecified control Plan: Compressive metabolic panel and a hemoglobin A1c ordered Orders: Orders Comprehensive [place]. Panel Fast 07/20/23 D50.9 - Iron deficiency anemia, unspecified, M25.50 - Pain in unspecified joint, O24.419 - Gestational diabetes mellitus in , unspecified control, R10.30 - Lower abdominal pain, unspecified, R53.83 - Other fatigue, Z86.19 - Personal history of other infectious and parasitic diseases Complete Blood Count Auto Diff 07/20/23 D50.9 - Iron deficiency anemia, unspecified, M25.50 - Pain in unspecified joint, O24.419 - Gestational diabetes mellitus in , unspecified control, R10.30 - Lower abdominal pain, unspecified, R53.83 - Other fatigue, Z86.19 - Personal history of other infectious and parasitic diseases Vitamin D 25-OH Total 07/20/23 D50.9 - Iron deficiency anemia, unspecified, M25.50 - Pain in unspecified joint, O24.419 - Gestational diabetes mellitus in , unspecified control, R10.30 - Lower abdominal pain, unspecified, R53.83 - Other fatigue, Z86.19 - Personal history of other infectious and parasitic diseases TSH reflex Free T4 04 D50.9 - Iron deficiency anemia, unspecified, M25.50 - Pain in unspecified joint, O24.419 - Gestational diabetes mellitus in , unspecified control, R10.30 - Lower abdominal pain, unspecified, R53.83 - Other fatigue, Z86.19 - Personal history of other infectious and parasitic diseases CRP High Sensitivity 07/20/23 D50.9 - Iron deficiency anemia, unspecified, M25.50 - Pain in unspecified joint, O24.419 - Gestational diabetes mellitus in , unspecified control, R10.30 - Lower abdominal pain, unspecified, R53.83 - Other fatigue, Z86.19 - Personal history of other infectious and parasitic diseases Hemoglobin A1c 07/20/23 D50.9 - Iron deficiency anemia, unspecified, M25.50 - Pain in unspecified joint, O24.419 - Gestational diabetes mellitus in , unspecified control, R10.30 - Lower abdominal pain, unspecified, R53.83 - Other fatigue, Z86.19 - Personal history of other infectious and parasitic diseases IRON PROFILE 07/20/23 D50.9 - Iron deficiency anemia, unspecified, M25.50 - Pain in unspecified joint, O24.419 - Gestational diabetes mellitus in , unspecified control, R10.30 - Lower abdominal pain, unspecified, R53.83 - Other fatigue, Z86.19 - Personal history of other infectious and parasitic diseases Vitamin B12 and Folate 07/20/23 D50.9 - Iron deficiency anemia, unspecified, M25.50 - Pain in unspecified joint, O24.419 - Gestational diabetes mellitus in , unspecified control, R10.30 - Lower abdominal pain, unspecified, R53.83 - Other fatigue, Z86.19 - Personal history of other infectious and parasitic diseases Erythrocyte Sedimentation Rate 07/20/23 D50.9 - Iron deficiency anemia, unspecified, M25.50 - Pain in unspecified joint, O24.419 - Gestational diabetes mellitus in , unspecified control, R10.30 - Lower abdominal pain, unspecified, R53.83 - Other fatigue, Z86.19 - Personal history of other infectious and parasitic diseases Coding Level of Care Code Est Pt Level 4 (71939) Diagnoses Microcytic hypochromic anemia D50.9 Polyarthralgia M25.50 Chronic fatigue R53.82 Fatigue type: chronic, unspecified Lower abdominal pain of unknown etiology R10.30 Celiac disease K90.0 Gestational diabetes mellitus (GDM) affecting , antepartum O24.419 Additional Codes BERNARDINO-7 Assessment Billing - BERNARDINO-7 Assessment Tool: BERNARDINO-7 Assessment 92829 ([id number])
[2023-07-20 11:57] VITALS: BP 100/70; PULSE 92; O2SAT 99; BMI 24.0
== END 2023-07-20 13:38 | disposition home or self-care (01) ==
PROVIDERS: PCP Internal Medicine; Visit Provider Internal Medicine
DX: D50.9 Iron deficiency anemia, unspecified (principal); M25.50 Pain in unspecified joint; R53.82 Chronic fatigue, unspecified; R10.30 Lower abdominal pain, unspecified; K90.0 Celiac disease; O24.419 Gestational diabetes mellitus in pregnancy, unspecified control
CPT/HCPCS: 99214

== ENCOUNTER 2023-07-23 07:54 | Outpatient (REF) | payer OTHER, SELFPAY ==
[2023-07-23 10:17] LABS: MANUAL DIFF FLAG NO
[2023-07-23 10:27] LABS: Basophils Percent Auto 0.6 % (0-2); Eosinophils Absolute Auto 0.6 X10*3/uL (0.0-0.4); Eosinophils Percent Auto 10.8 % (0-4); Hemoglobin 11.3 g/dl (12.0-16.0); Imm Gran Abs Auto 0.01 X10*3/uL (0.00-0.03); Imm Gran Pct Auto 0.2 % (0.0-0.4); Lymphocytes Absolute Auto 2.4 X10*3/uL (1.2-4.9); Lymphocytes Percent Auto 44.8 % (20-40); Mean Corpuscular HGB Conc 31.4 g/dl (31.0-35.0); Mean Corpuscular Hemoglobin 26.7 pg (27.0-33.0); Mean Corpuscular Volume 85.1 fL (80.0-98.0); Mean Platelet Volume 10.9 fL (9.4-12.3); Monocytes Absolute Auto 0.3 X10*3/uL (0.1-1.2); Monocytes Percent Auto 6.5 % (2-11); Neutrophils Percent Auto 37.1 % (45-73); Platelet Count 383 X10*3/uL (160-400); Red Blood Count 4.23 X10*6/uL (4.20-5.50); White Blood Count 5.3 X10*3/uL (4.8-10.8)
[2023-07-23 11:13] LABS: Alanine Aminotransferase 18 U/L (0-31); Albumin Level 4.2 g/dL (3.5-5.0); Alkaline Phosphatase 71 U/L (39-117); Anion Gap 11 (12-20); Aspartate Amino Transferase 23 U/L (5-31); Bilirubin Total 0.1 mg/dL (0.0-1.0); Blood Urea Nitrogen 11 mg/dL (9-16); Carbon Dioxide 26 mmol/L (22-29); Chloride 107 mmol/L (96-108); Estimated Glomerular Filt Rate > 60; Glucose Fasting 87 mg/dL (60-99); Iron 23 mcg/dL (30-160); Percent Iron Saturation 7 % (15-50); Potassium 4.2 mmol/L (3.3-5.1); Sodium 140 mmol/L (135-145); TSH reflex Free T4 3.61 uIU/mL (0.32-4.0); Total Iron Binding Capacity 314 mcg/dL (228-428); Total Protein 7.4 g/dL (6.5-8.0); Unsaturated Iron Binding 291 ug/dL; Vitamin D 25-OH Total 39.1 ng/mL (>30)
[2023-07-23 11:15] LABS: Estimated Average Glucose 108 mg/dL; Hemoglobin A1c % 5.4 % (<6.0)
[2023-07-23 11:26] LABS: Erythrocyte Sedimentation Rate 17 MM/HR (0-20)
[2023-07-23 12:08] LABS: Folate 11.7 ng/mL (> or = 4.0); Vitamin B12 429 pg/mL (200-900)
[2023-07-24 19:08] LABS: CRP High Sensitivity >10.0 mg/L
== END 2023-07-23 07:55 | disposition home or self-care (01) ==
LOC: HO.HMGCLDS 07:54
PROVIDERS: PCP Internal Medicine; Visit Provider Internal Medicine
DX: O24.419 Gestational diabetes mellitus in pregnancy, unspecified control (principal); O26.819 Pregnancy related exhaustion and fatigue, unspecified trimester; O99.019 Anemia complicating pregnancy, unspecified trimester; O26.899 Other specified pregnancy related conditions, unspecified trimester; R10.30 Lower abdominal pain, unspecified; M25.50 Pain in unspecified joint; D50.9 Iron deficiency anemia, unspecified; Z86.19 Personal history of other infectious and parasitic diseases
CPT/HCPCS: 36415; 80053; 82306; 82607; 82746; 83036; 83540; 84443; 85025; 85652; 86141

== ENCOUNTER 2023-08-17 10:48 | Outpatient (AMB) | payer OTHER, SELFPAY ==
[2023-08-17 10:52] VITALS: BP 105/67; PULSE 71; BMI 23.9
--- NOTE | 2023-08-17 10:52 | A.OFFVIS_ITS ---
Vital Signs 08/17/23 10:52 Height 5 ft 1 in Weight 126 lb 8.725 oz BMI 23.9 BP 105/67 Blood Pressure Location Lt brachial Position Sitting Pulse 71 Intake Visit Reasons: Abdominal Pains Intake Note: Patient in office today in follow up of abdominal pain. CC: Pt c/o RLQ abdominal pain with radiation to her rt lower back. Pain comes and goes, pain scale 7-8 per patient. Denies other GI symptoms. 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 Accompanied by: Self / Same As Patient Allergies morphine [MORPHINE] Allergy (Intermediate, Verified 08/17/23 10:55) RASH amoxicillin [AMOXICILLIN] Allergy (Unknown, Verified 08/17/23 10:55) UNKNOWN, unknown - childhood gluten Allergy (Unknown, Verified 08/17/23 10:55) Unknown pork derived (porcine) Allergy (Unknown, Verified 08/17/23 10:55) Unknown sulfacetamide Allergy (Unknown, Verified 08/17/23 10:55) rash HPI HPI Abdominal Pains: Details: 37 yr old f being seen for f/u RECAP She had globus sensation she had EGD with h pylori noted--got quadruple therapy--had balloon dilation, no effect she is not taking PPI right now usually the first bite is the worst with food then its ok even if doesnt eat anything has symptoms denies diarrhea or constipation no blood in stool no depression or anxiety hx of iron def anemia can sometimes have heavy periods FH of heart disease she describes post nasal drip she completed h pylori treatment MRe: normal, no evidence of IBD, Labs: Anemia, low iron, high celiac titers INTERIM: she has noted RLQ pain and goes into the back--worse at night urine is normal, denies constipation no blood in stool appetite is poor weight is stable she has no further problems with swallowing she denies depression EXAM: GENERAL: The patient is well developed and nontoxic. VITAL SIGNS:see workflow HEENT: Nonicteric sclerae, PERRLA, EOMI. Oropharynx clear. Moist mucous membranes. Conjunctivae appear well perfused. No thyroid mass. CHEST: Chest wall is nontender. HEART: Regular rate and rhythm without murmurs. LUNGS: Clear to auscultation bilaterally. ABDOMEN: Soft, positive bowel sounds, tender suprapubic, no organomegaly.no flank tenderness SKIN: No rash, no excessive bruising, petechiae, or purpura. NEUROLOGIC: Cranial nerves II-XII intact without motor/sensory deficit. MS: normal A/P: 1/ h PYLORI- had rx, needs ARIANNE 2/ suspected celiac disease 3/ possible pelvic congestion 4/ iron def anemia PLAN: 1/ repeat h pylori testing 2/ recheck celiac and nutritonal screen 3/ US abdomen, might need angio to look for PCS 4/ sent iron and recommended to take MV due to anemia and iron def, has hair loss PFSH Medical History Post herpetic neuralgia History of Helicobacter pylori infection Polyarthralgia Fatigue Lower abdominal pain of unknown etiology Microcytic hypochromic anemia Nausea Hx: bad fall Low back pain Migraine Inflammatory arthritis Acne Surgical History History of esophagogastroduodenoscopy (EGD) No pertinent past surgical history Family History Father Medical history non-contributory Diabetes CVD (cardiovascular disease) Mother Medical history non-contributory Brother No problems noted. Brother No problems noted. Sister No problems noted. Sister No problems noted. Son No problems noted. Daughter No problems noted. Daughter No problems noted. Social History Household Members: Spouse and Children Household Members Other:: 3kids Housing: House Alcohol intake: never Patient Tobacco Use Status: Never used Tobacco e-Cigarette/Vaping Use: Never Used Second Hand Smoke Exposure: No Current occupational status: unemployed Cognitive needs: No Hearing needs: No Vision needs: No Female Reproductive History Menstrual Age of Menarche: 13 Physical Exam Vital Signs: BMI result Body Mass Index 23.9 Assessment & Plan Assessment & Plan (1) Celiac disease: Code(s): K90.0 - Celiac disease Category: Medical Plan: PLAN: 1/ repeat h pylori testing 2/ recheck celiac and nutritonal screen 3/ US abdomen, might need angio to look for PCS 4/ sent iron and recommended to take MV due to anemia and iron def, has hair loss (2) Lower abdominal pain of unknown etiology: Code(s): R10.30 - Lower abdominal pain, unspecified Category: Medical Plan: PLAN: 1/ repeat h pylori testing 2/ recheck celiac and nutritonal screen 3/ US abdomen, might need angio to look for PCS 4/ sent iron and recommended to take MV due to anemia and iron def, has hair loss (3) Microcytic hypochromic anemia: Code(s): D50.9 - Iron deficiency anemia, unspecified Category: Medical Plan: PLAN: 1/ repeat h pylori testing 2/ recheck celiac and nutritonal screen 3/ US abdomen, might need angio to look for PCS 4/ sent iron and recommended to take MV due to anemia and iron def, has hair loss Orders: Orders Ferritin Today K90.0 - Celiac disease Transglutaminase Ab IgG Today G89.29 - Other chronic pain, K90.0 - Celiac disease, R10.33 - Periumbilical pain Transglutaminase IgA Today K90.0 - Celiac disease Vitamin B5 (Pantothenic Acid) Today D50.9 - Iron deficiency anemia, unspecified, R10.30 - Lower abdominal pain, unspecified Vitamin K1 Today D50.9 - Iron deficiency anemia, unspecified, R10.30 - Lower abdominal pain, unspecified Vitamin B12 and Folate Today K90.0 - Celiac disease Complete Blood Count Auto Diff Today K90.0 - Celiac disease Comprehensive Met. Panel Today K75.81 - Nonalcoholic steatohepatitis ([place]), K90.0 - Celiac disease C Reactive Protein Today K90.0 - Celiac disease US abdomen complete Today R10.30 - Lower abdominal pain, unspecified Vitamin A Today D50.9 - Iron deficiency anemia, unspecified, R10.30 - Lower abdominal pain, unspecified Vitamin B1 Today D50.9 - Iron deficiency anemia, unspecified, R10.30 - Lower abdominal pain, unspecified Vitamin D 25-OH Total Today D50.9 - Iron deficiency anemia, unspecified, R10.30 - Lower abdominal pain, unspecified Zinc Today D50.9 - Iron deficiency anemia, unspecified, R10.30 - Lower abdominal pain, unspecified Vitamin C Today D50.9 - Iron deficiency anemia, unspecified, R10.30 - Lower abdominal pain, unspecified Vitamin E Today D50.9 - Iron deficiency anemia, unspecified, R10.30 - Lower abdominal pain, unspecified Vitamin B6 Today D50.9 - Iron deficiency anemia, unspecified, R10.30 - Lower abdominal pain, unspecified Vitamin B3 (Niacin) Today D50.9 - Iron deficiency anemia, unspecified, R10.30 - Lower abdominal pain, unspecified Medications: New ferrous fumarate 324 mg PO DAILY 90 tabs 2RF Coding Level of Care Code Est Pt Level 4 (59216) Diagnoses Celiac disease K90.0 Lower abdominal pain of unknown etiology R10.30 Microcytic hypochromic anemia D50.9
== END 2023-08-17 11:42 | disposition home or self-care (01) ==
PROVIDERS: PCP Internal Medicine; Visit Provider Internal Medicine Gastroenterology
DX: K90.0 Celiac disease (principal); R10.30 Lower abdominal pain, unspecified; D50.9 Iron deficiency anemia, unspecified
CPT/HCPCS: 99214

== ENCOUNTER → 2023-08-17 10:48 | Outpatient (BNVA) | payer OTHER, SELFPAY | PROVIDERS: PCP Internal Medicine; Visit Provider Internal Medicine Gastroenterology | DX: K90.0 Celiac disease (principal); R10.30 Lower abdominal pain, unspecified; D50.9 Iron deficiency anemia, unspecified | CPT/HCPCS: 99212 ==

== ENCOUNTER 2023-08-17 17:37 | Outpatient (REF) | payer OTHER, SELFPAY ==
[2023-08-18 14:53] LABS: H Pylori Breath Test Negative (Negative)
== END 2023-08-17 17:38 | disposition home or self-care (01) ==
LOC: HO.HHCLNP 17:37
PROVIDERS: Visit Provider Internal Medicine Gastroenterology
DX: D50.9 Iron deficiency anemia, unspecified (principal)
CPT/HCPCS: 83013

== ENCOUNTER 2023-08-20 10:22 | Outpatient (REF) | payer OTHER, SELFPAY ==
[2023-08-20 13:26] LABS: MANUAL DIFF FLAG NO
[2023-08-20 13:36] LABS: Basophils Absolute Auto 0.1 X10*3/uL (0.0-0.2); Basophils Percent Auto 1.4 % (0-2); Eosinophils Absolute Auto 0.4 X10*3/uL (0.0-0.4); Eosinophils Percent Auto 5.4 % (0-4); Hematocrit 34.8 % (37.0-47.0); Imm Gran Abs Auto 0.01 X10*3/uL (0.00-0.03); Imm Gran Pct Auto 0.2 % (0.0-0.4); Lymphocytes Absolute Auto 2.3 X10*3/uL (1.2-4.9); Lymphocytes Percent Auto 34.7 % (20-40); Mean Corpuscular HGB Conc 31.6 g/dl (31.0-35.0); Mean Corpuscular Hemoglobin 26.6 pg (27.0-33.0); Mean Corpuscular Volume 84.1 fL (80.0-98.0); Mean Platelet Volume 10.5 fL (9.4-12.3); Monocytes Absolute Auto 0.3 X10*3/uL (0.1-1.2); Monocytes Percent Auto 4.8 % (2-11); Neutrophils Absolute Auto 3.5 x10*3/uL (2.0-8.3); Neutrophils Percent Auto 53.5 % (45-73); Platelet Count 482 X10*3/uL (160-400); Red Blood Count 4.14 X10*6/uL (4.20-5.50); Red Cell Distribution Width 13.7 % (11.0-16.0); White Blood Count 6.5 X10*3/uL (4.8-10.8)
[2023-08-20 14:13] LABS: Alanine Aminotransferase 17 U/L (0-31); Albumin Level 4.5 g/dL (3.5-5.0); Alkaline Phosphatase 82 U/L (39-117); Anion Gap 14 (12-20); Aspartate Amino Transferase 19 U/L (5-31); Bilirubin Total 0.4 mg/dL (0.0-1.0); Blood Urea Nitrogen 12 mg/dL (9-16); Calcium 9.8 mg/dL (8.4-10.2); Carbon Dioxide 23 mmol/L (22-29); Chloride 106 mmol/L (96-108); Estimated Glomerular Filt Rate > 60; Ferritin 10 ng/mL (10-122); Glucose Random 88 mg/dL (60-115); Potassium 4.2 mmol/L (3.3-5.1); Sodium 139 mmol/L (135-145); Total Protein 8.1 g/dL (6.5-8.0); Vitamin D 25-OH Total 44.1 ng/mL (>30)
[2023-08-20 14:25] LABS: Folate 12.6 ng/mL (> or = 4.0); Vitamin B12 446 pg/mL (200-900)
[2023-08-22 14:33] LABS: Transglutaminase Ab IgG <1.0 U/mL; Transglutaminase IgA 7.3 U/mL
[2023-08-23 05:58] LABS: Zinc 87 mcg/dL (60-130)
[2023-08-23 21:28] LABS: Vitamin K1 396 pg/mL (130-1500)
[2023-08-24 16:18] LABS: Alpha-Tocopherol 7.7 mg/L (5.7-19.9); Beta-Gamma Tocopherol 1.1 mg/L (<=4.3); Vitamin A 31 mcg/dL (38-98)
[2023-08-25 09:23] LABS: Vitamin B1 15 nmol/L (8-30)
[2023-08-25 16:58] LABS: Vitamin B6 14.6 ng/mL (2.1-21.7)
[2023-08-27 01:38] LABS: Nicotinamide 57 ng/mL; Vit B3 - Nicotinic Acid <20 ng/mL
== END 2023-08-20 10:23 | disposition home or self-care (01) ==
LOC: HO.HMGCLDS 10:22
PROVIDERS: PCP Internal Medicine; Visit Provider Internal Medicine Gastroenterology
DX: R10.33 Periumbilical pain (principal); G89.29 Other chronic pain; K90.0 Celiac disease; R10.30 Lower abdominal pain, unspecified; D50.9 Iron deficiency anemia, unspecified; K75.81 Nonalcoholic steatohepatitis (NASH)
CPT/HCPCS: 36415; 80053; 82306; 82607; 82728; 82746; 84207; 84425; 84446; 84590; 84591; 84597; 84630; 85025; 86140; 86364

== ENCOUNTER 2023-08-22 11:56 | Outpatient (REF) | payer OTHER, SELFPAY ==
[2023-08-29 15:53] LABS: Vitamin C 0.4 mg/dL (0.3-2.7)
[2023-08-30 01:33] LABS: Vitamin B5 (Pantothenic Acid) 43 ng/mL (<275)
== END 2023-08-22 11:57 | disposition home or self-care (01) ==
LOC: HO.LAB 11:56
PROVIDERS: PCP Internal Medicine; Visit Provider Internal Medicine Gastroenterology
DX: R10.30 Lower abdominal pain, unspecified (principal); D50.9 Iron deficiency anemia, unspecified
CPT/HCPCS: 36415; 82180; 84591

== ENCOUNTER 2023-08-29 08:55 | Outpatient (REF) | payer OTHER, SELFPAY ==
--- NOTE | ~2023-08-29 | US_ITS ---
EXAMINATION: US ABDOMEN COMPLETE CLINICAL INFORMATION: Right lower quadrant pain, lower abdominal pain. COMPARISON: None available. TECHNIQUE: Real-time imaging of the abdominal viscera. FINDINGS: PANCREAS: Limited visualization of pancreatic tail and head. Imaged portion of pancreatic body is unremarkable. ABDOMINAL AORTA: Unremarkable. INFERIOR VENA CAVA: Visualized portions are normal. LIVER: Increased hepatic parenchymal heterogeneity and echogenicity could be associated with hepatocellular disease/hepatic steatosis and substantially limits visualization. Correlation with liver function tests and clinical exam recommended to determine further management. GALLBLADDER: No gallstones. No gallbladder wall thickening. COMMON BILE DUCT: Normal in caliber measuring 0.19 cm in diameter. RIGHT KIDNEY: No hydronephrosis. No renal calculi. Limited visualization. The kidney measures 11.4 cm in maximum dimension. LEFT KIDNEY: No hydronephrosis. No renal calculi. Renal cortical thickness is normal. The kidney measures 10.5 cm in maximum dimension. SPLEEN: Normal. The spleen measures 9.7 cm in maximum dimension. FREE FLUID: None. Targeted ultrasound images were obtained by the retail representative of the area of concern as indicated by the patient in the right lower quadrant and demonstrated no discrete hernia, mass or fluid collection. Limited visualization due to bowel gas. Radiologist was not in attendance. Images were later provided for interpretation. US/US abdomen complete IMPRESSION: 1. Increased hepatic parenchymal heterogeneity and echogenicity could be associated with hepatocellular disease/hepatic steatosis and substantially limits visualization. Correlation with liver function tests and clinical exam recommended to determine further management. 2. Targeted ultrasound images were obtained by the retail representative of the area of concern as indicated by the patient in the right lower quadrant and demonstrated no discrete hernia, mass or fluid collection. Limited visualization due to bowel gas. Radiologist was not in attendance. Images were later provided for interpretation.
== END 2023-08-29 08:56 | disposition home or self-care (01) ==
LOC: HO.HMGCX 08:55
PROVIDERS: PCP Internal Medicine; Visit Provider Internal Medicine Gastroenterology
DX: R10.31 Right lower quadrant pain (principal)
CPT/HCPCS: 76700

== ENCOUNTER 2024-02-14 11:33 | Outpatient (REF) | payer OTHER, SELFPAY ==
[2024-02-14 14:27] LABS: Vitamin D 25-OH Total 36.5 ng/mL (>30)
== END 2024-02-14 11:34 | disposition home or self-care (01) ==
LOC: HO.HMGCLDS 11:33
PROVIDERS: PCP Internal Medicine; Visit Provider Dermatology
DX: L64.8 Other androgenic alopecia (principal); L65.0 Telogen effluvium
CPT/HCPCS: 36415; 82306

== ENCOUNTER 2024-06-03 12:02 | Outpatient (AMB) | payer OTHER, SELFPAY ==
--- NOTE | 2024-06-03 12:33 | MHC.OFFVIS ---
Vital Signs 06/03/24 12:43 Height 5 ft 1 in Weight 121 lb 11.123 oz BMI 23.0 BP 112/70 Blood Pressure Location Lt brachial Position Sitting Pulse 71 Pulse Source Pulse Oximeter Pulse Oximetry (%) 98 Oxygen Delivery Method Room Air Intake Visit Reasons: Joint pain Intake Note: Patient presents for joint pain. I feel pain on both shoulders, elbows, wrist, legs and sometimes both ankles when I walk long distance. I been feeling joint pain for the past five years on and off. I forgot the name of the medication that was prescribed by Doctor Tacos Izquierdo for the pain. Allergies morphine [MORPHINE] Allergy (Intermediate, Verified 06/03/24 12:42) RASH amoxicillin [AMOXICILLIN] Allergy (Unknown, Verified 06/03/24 12:42) UNKNOWN, unknown - childhood gluten Allergy (Unknown, Verified 06/03/24 12:42) Unknown pork derived (porcine) Allergy (Unknown, Verified 06/03/24 12:42) Unknown sulfacetamide Allergy (Unknown, Verified 06/03/24 12:42) rash Medication List - Last Reconciled 06/03/24 by Sarina Jensen MD ferrous fumarate 324 mg PO DAILY hyoscyamine sulfate 0.125 mg PO QID PRN psyllium husk (Metamucil) 0.8 grams (2 x 0.4 gram) PO DAILY vitamin A palmitate 10,000 units PO DAILY HPI Comments Details: Patient is a 38 y.o. female with celiac disease (managed with diet retrictions) who presents for evaluation of joint pain States that for the past 3-4 years she has been experiencing joint pain involving the ankles, elbows and wrists. Pain is worse in the morning, no associated stiffness. Pain does not improve as the day goes on. Denies rashes, photosensitivity, alopecia, oral/nasal ulcers, sicca symptoms, lymphadenopathy, chest pain/shortness of breath, inflammatory type joint pain, foamy urine, lower extremity edema, muscle weakness, Raynaud's Also denies history of seizure, CVA, psychosis, history of kidney problems, history of cytopenias, history of VTE including PE or DVTs Was previously seeing a sewer cleaner and was being prescribed meloxicam which provided some relief [facility] Medical History Post herpetic neuralgia History of Helicobacter pylori infection Polyarthralgia Fatigue Lower abdominal pain of unknown etiology Microcytic hypochromic anemia Nausea Hx: bad fall Low back pain Migraine Inflammatory arthritis Acne Surgical History History of esophagogastroduodenoscopy (EGD) No pertinent past surgical history Family History Father Medical history non-contributory Diabetes CVD (cardiovascular disease) Mother Medical history non-contributory Brother No problems noted. Brother No problems noted. Sister No problems noted. Sister No problems noted. Son No problems noted. Daughter No problems noted. Daughter No problems noted. Social History Household Members: Spouse and Children Household Members Other:: 3kids Housing: House Alcohol intake: never Patient Tobacco Use Status: Never used Tobacco e-Cigarette/Vaping Use: Never Used Second Hand Smoke Exposure: No Current occupational status: unemployed Cognitive needs: No Hearing needs: No Vision needs: No Female Reproductive History Menstrual Age of Menarche: 13 Review of Systems Const Details: Review of Systems Constitutional: Denies fever, chills, weight loss ENT: Denies vision changes, eye pain or eye redness, dental caries, dry mouth GI: Denies nausea, vomiting, diarrhea, abdominal pain, change in BM Pulm: Denies SOB, BETANCOURT, hemoptysis, wheezing Cards: Denies chest pain, palpitations Skin: Denies Raynaud's, rash, nail changes, photosensitivity, SERVICE COORDINATOR ELDERLY FACILITY: Denies headaches, weakness, paresthesias, recurrent falls MSK: as per HPI All other systems reviewed and are unremarkable except noted above All systems reviewed & are unremarkable except as noted in HPI and below Physical Exam Vital Signs: Last Vital Signs Pulse 71 06/03/24 12:43 BP 112/70 06/03/24 12:43 Pulse Ox 98 06/03/24 12:43 Oxygen Delivery Method Room Air 06/03/24 12:43 BMI result Body Mass Index 23.0 Vital signs reviewed Physical Examination CONSTITUITIONAL Patient alert and cooperative. Well appearing and in no apparent painful distress HEENT Conjunctiva and sclera clear. ?Pupils equal round and reactive to light. ?No lymphadenopathy. ? CHEST/RESPIRATORY SYSTEM Normal respiratory effort and able to speak in complete sentences. ?Clear to auscultation bilaterally. ?No crackles, rales, rhonchi, wheezes heard. CARDIAC SYSTEM Regular rate and rhythm. ?S1 and S2 heard no murmurs. ?Radial pulses intact bilaterally MSK Hands: ?Good juvenile justice specialist strength bilaterally. No deformities noted. ?No synovitis noted to the MCPs, PIPs or DIPs. ?No tenderness to palpation of these joints. Wrists: ?Full range of motion at the wrists without pain. ?No tenderness to palpation or synovitis noted to the wrists. Elbows: Full range of motion without pain. No tenderness, weakness, swelling, increased warmth or erythema. Shoulders: Full range of motion without pain. No tenderness, weakness, swelling, increased warmth or erythema. Hips: Full range of motion without pain. Hip bursa: No tenderness to palpation Knees: ?Full range of motion. ?No tenderness, swelling, increased warmth or erythema.?No effusion or crepitations Ankles: Full range of motion. ?No tenderness, swelling, increased warmth or erythema.? Tenderness to palpation of the medial aspect of the tibia bilaterally Feet: ?Negative squeeze test. ?No tenderness to palpation or swelling of the MTPs. Tender points:?No tenderness to palpation of the bilateral trapezius, supraspinatus, greater trochanters, anterior costochondral junctions, bilateral gluteal areas, bilateral suboccipital muscle insertions SKIN Skin intact without rashes. Results Reviewed Results Reviewed: Laboratory Tests 08/21/18 06/29/21 07/23/23 12:55 16:04 08:00 WBC RBC Hgb Hct Plt Count ESR 17 25-OH Vitamin D Total RANULFO Screen Negative Anti-Gliadin IgG Ab 73.3 H 08/20/23 02/14/24 10:35 11:45 WBC 6.5 RBC 4.14 L Hgb 11.0 L Hct 34.8 L Plt Count 482 H D ESR 25-OH Vitamin D Total 36.5 RANULFO Screen Anti-Gliadin IgG Ab Assessment & Plan Assessment & Plan (1) Polyarthralgia: Code(s): M25.50 - Pain in unspecified joint Category: Medical Plan: #Polyarthralgias Patient is a 38-year-old female who presents for evaluation of polyarthralgias. At this time it is unclear what the source of her polyarthralgias could be. The history and exam does not indicate an inflammatory arthritis especially since she has tenderness to palpation of the bilateral inferior tibia. We will check x-rays and get blood work and review in 2 weeks Plan - CBC, CMP, ESR, CRP, RF, CCP - Ibuprofen 600mg TID - XR bilateral Tib/fib - RTC 2 weeks Plan I spent 30 minutes reviewing the record and labs, taking a history, examining the patient, discussing the treatment plan and documenting in the medical record Orders: Orders Erythrocyte Sedimentation Rate Today M25.50 - Pain in unspecified joint Rheumatoid Factor Today M25.50 - Pain in unspecified joint Cyclic Citrullinated Peptide Today M25.50 - Pain in unspecified joint XR tibia fibula LT 2V Today M25.50 - Pain in unspecified joint XR tibia fibula RT 2V Today M25.50 - Pain in unspecified joint Complete Blood Count Auto Diff Today M25.50 - Pain in unspecified joint Comprehensive Met. Panel Today M25.50 - Pain in unspecified joint C Reactive Protein Today M25.50 - Pain in unspecified joint Vitamin D 25-OH Total Today E55.9 - Vitamin D deficiency, unspecified Medications: New ibuprofen 600 mg PO TID 30 days 90 tabs 3RF M25.50 - Pain in unspecified joint Coding Level of Care Code New Pt Level 3 (36437) Diagnoses Polyarthralgia M25.50
[2024-06-03 12:43] VITALS: BP 112/70; PULSE 71; O2SAT 98; BMI 23.0
== END 2024-06-03 13:13 | disposition home or self-care (01) ==
PROVIDERS: PCP Internal Medicine; Visit Provider Student in an Organized Health Care Education/Training Program
DX: M25.50 Pain in unspecified joint (principal)
CPT/HCPCS: 99203

== ENCOUNTER 2024-06-03 12:02 | Outpatient (REF) | payer OTHER, SELFPAY ==
--- NOTE | ~2024-06-03 | XR_ITS ---
EXAMINATION: XR TIBIA AND FIBULA, RIGHT CLINICAL INFORMATION: M25.50 - Pain in unspecified joint COMPARISON: None available. TECHNIQUE: AP and lateral views of the right tibia and fibula were obtained. FINDINGS: The bones and soft tissues are normal. No fracture. No osseous lesions. XR/XR tibia fibula RT 2V IMPRESSION: Normal right tibia and fibula. Electronically signed by: Kevin Nicholson MD 06/04/2024 10:41 AM [facility]
--- NOTE | ~2024-06-03 | XR_ITS ---
EXAMINATION: XR TIBIA AND FIBULA, LEFT CLINICAL INFORMATION: M25.50 - Pain in unspecified joint COMPARISON: None available. TECHNIQUE: AP and lateral views of the right tibia and fibula were obtained. FINDINGS: The bones and soft tissues are normal. No fracture. No osseous lesions. XR/XR tibia fibula LT 2V IMPRESSION: Normal left tibia and fibula. Electronically signed by: Kevin Nicholson MD 06/04/2024 10:42 AM [facility]
[2024-06-03 13:42] LABS: MANUAL DIFF FLAG NO
[2024-06-03 13:59] LABS: Basophils Absolute Auto 0.1 X10*3/uL (0.0-0.2); Basophils Percent Auto 1.1 % (0-2); Eosinophils Absolute Auto 0.3 X10*3/uL (0.0-0.4); Eosinophils Percent Auto 3.6 % (0-4); Hemoglobin 9.6 g/dl (12.0-16.0); Imm Gran Abs Auto 0.01 X10*3/uL (0.00-0.03); Imm Gran Pct Auto 0.1 % (0.0-0.4); Lymphocytes Absolute Auto 2.4 X10*3/uL (1.2-4.9); Lymphocytes Percent Auto 32.1 % (20-40); Mean Corpuscular Hemoglobin 21.1 pg (27.0-33.0); Mean Corpuscular Volume 70.5 fL (80.0-98.0); Mean Platelet Volume 10.1 fL (9.4-12.3); Monocytes Absolute Auto 0.4 X10*3/uL (0.1-1.2); Monocytes Percent Auto 5.4 % (2-11); Neutrophils Absolute Auto 4.4 x10*3/uL (2.0-8.3); Neutrophils Percent Auto 57.7 % (45-73); Platelet Count 523 X10*3/uL (160-400); Red Blood Count 4.54 X10*6/uL (4.20-5.50); Red Cell Distribution Width 16.3 % (11.0-16.0); White Blood Count 7.5 X10*3/uL (4.8-10.8)
[2024-06-03 14:44] LABS: Erythrocyte Sedimentation Rate 23 MM/HR (0-20)
[2024-06-03 14:48] LABS: Alanine Aminotransferase 20 U/L (0-31); Albumin Level 4.5 g/dL (3.5-5.0); Alkaline Phosphatase 99 U/L (39-117); Anion Gap 13 (12-20); Aspartate Amino Transferase 22 U/L (5-31); Bilirubin Total 0.2 mg/dL (0.0-1.0); Blood Urea Nitrogen 12 mg/dL (9-16); C Reactive Protein 0.74 mg/dL (< or = 0.50); Calcium 10.2 mg/dL (8.4-10.2); Carbon Dioxide 26 mmol/L (22-29); Chloride 106 mmol/L (96-108); Estimated Glomerular Filt Rate > 60; Glucose Random 81 mg/dL (60-115); Potassium 4.1 mmol/L (3.3-5.1); Sodium 141 mmol/L (135-145); Total Protein 8.8 g/dL (6.5-8.0)
[2024-06-03 14:52] LABS: Rheumatoid Factor < 13.0 IU/mL (<15.0)
[2024-06-03 15:07] LABS: Vitamin D 25-OH Total 40.3 ng/mL (>30)
[2024-06-06 18:49] LABS: Cyclic Citrullinated Peptide <16 UNITS
== END 2024-06-03 12:03 | disposition home or self-care (01) ==
LOC: HO.XRAY 12:02
PROVIDERS: PCP Internal Medicine; Visit Provider Student in an Organized Health Care Education/Training Program
DX: M25.50 Pain in unspecified joint (principal); E55.9 Vitamin D deficiency, unspecified
CPT/HCPCS: 36415; 73590; 80053; 82306; 85025; 85652; 86140; 86200; 86431; 99202

== ENCOUNTER → 2024-06-03 13:42 | Outpatient (BNV) | payer OTHER, SELFPAY | PROVIDERS: PCP Internal Medicine; Visit Provider Radiology Diagnostic Radiology | DX: M79.661 Pain in right lower leg (principal); M79.662 Pain in left lower leg | CPT/HCPCS: 73590 ==

== ENCOUNTER 2024-06-19 11:39 | Outpatient (AMB) | payer OTHER, SELFPAY ==
--- NOTE | 2024-06-19 11:44 | A.OFFVIS_ITS ---
Vital Signs 06/19/24 11:47 Height 5 ft 1 in Weight 121 lb 11.123 oz BMI 23.0 BP 115/64 Blood Pressure Location Lt brachial Position Sitting Pulse 78 Pulse Source Pulse Oximeter Pulse Oximetry (%) 100 Oxygen Delivery Method Room Air Intake Visit Reasons: Joint pain Intake Note: Patient presents for joint pain. Allergies morphine [MORPHINE] Allergy (Intermediate, Verified 06/19/24 11:47) RASH amoxicillin [AMOXICILLIN] Allergy (Unknown, Verified 06/19/24 11:47) UNKNOWN, unknown - childhood gluten Allergy (Unknown, Verified 06/19/24 11:47) Unknown pork derived (porcine) Allergy (Unknown, Verified 06/19/24 11:47) Unknown sulfacetamide Allergy (Unknown, Verified 06/19/24 11:47) rash Medication List - Last Reconciled 06/19/24 by Sarina Jensen MD ferrous fumarate 324 mg PO DAILY hyoscyamine sulfate 0.125 mg PO QID PRN ibuprofen 600 mg PO TID 30 days psyllium husk (Metamucil) 0.8 grams (2 x 0.4 gram) PO DAILY vitamin A palmitate 10,000 units PO DAILY HPI Comments Details: Patient is a 38-year-old female with celiac disease (managed with diet restriction) and iron-deficiency anemia here today for follow up polyarthralgias Interval History: Patient last seen 06/03/2024. At that time she was being evaluated for polyarthralgias involving her ankles, elbows and wrists. Her exam at that time was not consistent with autoimmune or autoinflammatory disease she did have tenderness to palpation of her anterior shins bilaterally. Blood work was negative for RF and CCP. There was mildly elevated inflammatory markers. Today, Patient complaints are unchanged Rheumatologic History: Initial history: Patient is a 38 y.o. female with celiac disease (managed with diet retrictions) who presents for evaluation of joint pain States that for the past 3-4 years she has been experiencing joint pain involving the ankles, elbows and wrists. Pain is worse in the morning, no associated stiffness. Pain does not improve as the day goes on. Denies rashes, photosensitivity, alopecia, oral/nasal ulcers, sicca symptoms, lymphadenopathy, chest pain/shortness of breath, inflammatory type joint pain, foamy urine, lower extremity edema, muscle weakness, Raynaud's Also denies history of seizure, CVA, psychosis, history of kidney problems, hist ory of cytopenias, history of VTE including PE or DVTs Was previously seeing a crm business analyst and was being prescribed meloxicam which provided some relief Current Rheumatology Medication(s): Ibuprofen 600 mg t.i.d. PFSH Medical History Post herpetic neuralgia History of Helicobacter pylori infection Polyarthralgia Fatigue Lower abdominal pain of unknown etiology Microcytic hypochromic anemia Nausea Hx: bad fall Low back pain Migraine Inflammatory arthritis Acne Surgical History History of esophagogastroduodenoscopy (EGD) No pertinent past surgical history Family History Father Medical history non-contributory Diabetes CVD (cardiovascular disease) Mother Medical history non-contributory Brother No problems noted. Brother No problems noted. Sister No problems noted. Sister No problems noted. Son No problems noted. Daughter No problems noted. Daughter No problems noted. Social History Household Members: Spouse and Children Household Members Other:: 3kids Housing: House Alcohol intake: never Patient Tobacco Use Status: Never used Tobacco e-Cigarette/Vaping Use: Never Used Second Hand Smoke Exposure: No Current occupational status: unemployed Cognitive needs: No Hearing needs: No Vision needs: No Female Reproductive History Menstrual Age of Menarche: 13 Review of Systems Const Details: Review of Systems Constitutional: Denies fever, chills, weight loss ENT: Denies vision changes, eye pain or eye redness, dental caries, dry mouth GI: Denies nausea, vomiting, diarrhea, abdominal pain, change in BM Pulm: Denies SOB, BETANCOURT, hemoptysis, wheezing Cards: Denies chest pain, palpitations Skin: Denies Raynaud's, rash, nail changes, photosensitivity, EMBEDDED FIRMWARE DEVELOPER: Denies headaches, weakness, paresthesias, recurrent falls MSK: as per HPI All other systems reviewed and are unremarkable except noted above All systems reviewed & are unremarkable except as noted in HPI and below Physical Exam Vital Signs: Last Vital Signs Pulse 78 06/19/24 11:47 BP 115/64 06/19/24 11:47 Pulse Ox 100 06/19/24 11:47 Oxygen Delivery Method Room Air 06/19/24 11:47 BMI result Body Mass Index 23.0 Vital signs reviewed Physical Examination CONSTITUITIONAL Patient alert and cooperative. Well appearing and in no apparent painful distress HEENT Conjunctiva and sclera clear. ?Pupils equal round and reactive to light. ?No lymphadenopathy. ? CHEST/RESPIRATORY SYSTEM Normal respiratory effort and able to speak in complete sentences. ?Clear to auscultation bilaterally. ?No crackles, rales, rhonchi, wheezes heard. CARDIAC SYSTEM Regular rate and rhythm. ?S1 and S2 heard no murmurs. ?Radial pulses intact bilaterally MSK Hands: ?Good tank house supervisor strength bilaterally. No deformities noted. ?No synovitis noted to the MCPs, PIPs or DIPs. ?No tenderness to palpation of these joints. Wrists: ?Full range of motion at the wrists without pain. ?No tenderness to palpation or synovitis noted to the wrists. Elbows: Full range of motion without pain. No tenderness, weakness, swelling, increased warmth or erythema. Shoulders: Full range of motion without pain. No tenderness, weakness, swelling, increased warmth or erythema. Hips: Full range of motion without pain. Hip bursa: No tenderness to palpation Knees: ?Full range of motion. ?No tenderness, swelling, increased warmth or erythema.?No effusion or crepitations Ankles: Full range of motion. ?No tenderness, swelling, increased warmth or erythema.? Tenderness to palpation of the medial aspect of the tibia bilaterally Feet: ?Negative squeeze test. ?No tenderness to palpation or swelling of the MTPs. Tender points:?No tenderness to palpation of the bilateral trapezius, supraspinatus, greater trochanters, anterior costochondral junctions, bilateral gluteal areas, bilateral suboccipital muscle insertions SKIN Skin intact without rashes. Results Reviewed Results Reviewed: Laboratory Tests 08/20/23 06/03/24 10:35 13:41 WBC 7.5 RBC 4.54 Hgb 11.0 L 9.6 L Hct 34.8 L 32.0 L Plt Count 482 H D 523 H ESR 23 H Sodium 141 Potassium 4.1 Chloride 106 Carbon Dioxide 26 BUN 12 Creatinine 0.57 Calcium 10.2 Total Bilirubin 0.2 AST 22 ALT 20 Alkaline Phosphatase 99 C-Reactive Protein 0.74 H Total Protein 8.8 H 25-OH Vitamin D Total 40.3 Rheumatoid Factor < 13.0 Cycl Citrul Peptide IgG <16 XR Bilateral Tib/Fib 05/2024 FINDINGS: Bones and soft tissue normal. No fracture. No osseous lesions Assessment & Plan Assessment & Plan (1) Polyarthralgia: Code(s): M25.50 - Pain in unspecified joint Category: Medical Plan: #Polyarthralgias Patient is a 38-year-old female who is presenting for evaluation of polyarthralgias. This time I do not believe that her joint pain is related to an underlying autoimmune disease. She does have a negative RF and CCP. Her inflammatory markers are mildly elevated however this can be seen in iron deficiency anemia. She did not have any evidence of synovitis on examination. Given that she is still complaining of difficulty with holding things in her hand we will continue with our workup. We will send for EMG evaluation to rule out carpal tunnel. Plan - Get EMG of bilateral UE - If normal will send for RANULFO and bilateral hand US evaluation Plan I spent 25 minutes reviewing the record and labs, taking a history, examining the patient, discussing the treatment plan and documenting in the medical record Orders: Orders NE electromyogram (EMG) Today G56.93 - Unspecified mononeuropathy of bilateral upper limbs Medications: Refilled ferrous fumarate 324 mg PO DAILY 90 tabs 2RF Coding Level of Care Code Est Pt Level 3 (45871) Diagnoses Polyarthralgia M25.50
[2024-06-19 11:47] VITALS: BP 115/64; PULSE 78; O2SAT 100; BMI 23.0
== END 2024-06-19 12:12 | disposition home or self-care (01) ==
LOC: HO.RHE 11:39
PROVIDERS: PCP Internal Medicine; Visit Provider Student in an Organized Health Care Education/Training Program
DX: M25.50 Pain in unspecified joint (principal)
CPT/HCPCS: 99213

== ENCOUNTER → 2024-06-19 11:39 | Outpatient (BNVA) | payer OTHER, SELFPAY | PROVIDERS: PCP Internal Medicine; Visit Provider Student in an Organized Health Care Education/Training Program | DX: G56.93 Unspecified mononeuropathy of bilateral upper limbs (principal); M25.50 Pain in unspecified joint; D50.9 Iron deficiency anemia, unspecified | CPT/HCPCS: 99212 ==

== ENCOUNTER → 2024-07-15 11:27 | Outpatient (BNV) | payer OTHER, SELFPAY | PROVIDERS: PCP Internal Medicine; Referring Provider Student in an Organized Health Care Education/Training Program; Visit Provider Internal Medicine Medical Oncology | DX: D50.9 Iron deficiency anemia, unspecified (principal) | CPT/HCPCS: 99204 ==

== ENCOUNTER 2024-07-22 10:36 | Outpatient (AMB) | payer OTHER, SELFPAY ==
[2024-07-22 10:52] VITALS: BP 116/70; BMI 22.5
--- NOTE | 2024-07-22 10:52 | MHC.OFFVIS ---
Vital Signs 07/22/24 10:52 Height 5 ft 1 in Weight 119 lb BMI 22.5 BP 116/70 Intake Visit Reasons: Heavy menses Skin Care Therapist Required: No Skin Care Therapist Services: Skin Care Therapist Present Information Interpreted: clinical only Clerical Specialist: Clerical Specialist Present Allergies morphine [MORPHINE] Allergy (Intermediate, Verified 07/22/24 10:52) RASH amoxicillin [AMOXICILLIN] Allergy (Unknown, Verified 07/22/24 10:52) UNKNOWN, unknown - childhood gluten Allergy (Unknown, Verified 07/22/24 10:52) Unknown pork derived (porcine) Allergy (Unknown, Verified 07/22/24 10:52) Unknown sulfacetamide Allergy (Unknown, Verified 07/22/24 10:52) rash Is last menstrual period known: Yes Last menstrual period: 07/15/24 HPI HPI Heavy menses: Details: Patient is here today to discuss her heavy periods. She was told she was anemic and she has a history of this she forgets to take her pills sometimes. She has been seen Dr. Allen and we will be getting an iron transfusion. And she says Dr. Allen recommended she talked to me about her heavy periods. 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 Her youngest is [id number]. she says she is getting good sleep at night but she is tired a lot. She just had blood work for the Hematology evaluation about a week ago. Her. Also started about a week ago she says they are heavy. She has never wanted to use any hormonal kind of manipulation of her periods and she is always relied on condoms she does not want anymore children at this stage but condoms have worked very well for her and . Her oldest is 17 and her youngest is 15 m. She does not want an exam today. she is due for her annual exam.. [facility] Medical History Post herpetic neuralgia History of Helicobacter pylori infection Polyarthralgia Fatigue Lower abdominal pain of unknown etiology Microcytic hypochromic anemia Nausea Hx: bad fall Low back pain Migraine Inflammatory arthritis Acne Surgical History History of esophagogastroduodenoscopy (EGD) No pertinent past surgical history Family History Father Medical history non-contributory Diabetes CVD (cardiovascular disease) Mother Medical history non-contributory Brother No problems noted. Brother No problems noted. Sister No problems noted. Sister No problems noted. Son No problems noted. Daughter No problems noted. Daughter No problems noted. Social History Household Members: Spouse and Children Household Members Other:: 3kids Housing: House Alcohol intake: never Patient Tobacco Use Status: Never used Tobacco e-Cigarette/Vaping Use: Never Used Second Hand Smoke Exposure: No Current occupational status: unemployed Cognitive needs: No Hearing needs: No Vision needs: No Female Reproductive History Menstrual Age of Menarche: 13 Date of last menstrual period: 07/15/24 control method: none Total pregnancies: 4 Full term: 4 Date of last pap smear: 08/17/22 (neg) Physical Exam Vital Signs: Last Vital Signs BP 116/70 07/22/24 10:52 BMI result Body Mass Index 22.5 Results Reviewed Results Reviewed: smita: Jennifer Maxwell Age/Sex: 38/F : 1985 Unit#: [id number] Attend Dr: Beverley Allen MD Re07/15/24 Status: REG [facility] Location[facility] [place] Disch: SPEC : [id number] ROXANNE: 07/15/24 STATUS: COMP REQ : [id number] RECD: 07/15/[address]: Beverley Allen MD COMP: 07/15/24 ENTERED: 07/15/[address]: Sirisha Dior MD ORDERED: CBC Auto Diff Test Result Flag Reference WBC 5.5 4.8-10.8 X10*3/uL RBC 4.13 L 4.20-5.50 X10*6/uL HGB 8.8 L 12.0-16.0 g/dl HCT 29.3 L 37.0-47.0 % MCV 70.9 L 80.0-98.0 fL MCH 21.3 L 27.0-33.0 pg MCHC 30.0 L 31.0-35.0 g/dl RDW 18.3 H 11.0-16.0 % PLT 465 H 160-400 X10*3/uL MPV 9.9 9.4-12.3 fL Neut Pct Auto 50.4 45-73 % ImGran Pct Auto 0.4 0.0-0.4 % Lymp Pct Auto 37.2 20-40 % [place] Pct Auto 6.7 2-11 % Eos Pct Auto 4.4 H 0-4 % Baso Pct Auto 0.9 0-2 % NRBC Pct Auto 0.0 0.0-0.2 /100WBC ANC Neut Abs # 2.8 2.0-8.3 x10*3/uL ImGran Abs Auto 0.02 0.00-0.03 X10*3/uL Lymph Abs Auto 2.0 1.2-4.9 X10*3/uL [place] Abs Auto 0.4 0.1-1.2 X10*3/uL Eos Abs Auto 0.2 0.0-0.4 X10*3/uL Baso Abs Auto 0.1 0.0-0.2 X10*3/uL NRBC Abs Auto 0.000 0.0-0.012 X10*3/uL Assessment & Plan Assessment & Plan (1) Menorrhagia with regular cycle: Code(s): N92.0 - Excessive and frequent menstruation with regular cycle Category: Medical (2) Microcytic hypochromic anemia: Code(s): D50.9 - Iron deficiency anemia, unspecified Category: Medical Plan Discussed her feelings about not wanting to take any medication she does not need to and in particular hormonal medications. Discussed that they are pretty much our main tools to manipulate menstrual cycles and lighten periods. Discussed 2 options for her at this particular stage of her life 1 would be progestin only control pills to take every single day at the same time every day a and the 2nd option which would provider more long-term measure would be progestin bearing IUD/Mirena. Discussed there similar and deferring side effects and she did have some knowledge of both and discussed that they can decreased libido which she is already noticing anyway and some times women just feel different hormones in discussed mood changes etc.. Suggest that we consider starting with the progestin only control pills to see how she does with those and in the meantime obtain a pelvic ultrasound and she and I will have a visit after the ultrasound to review to make sure there isn't any thing else pathologic to consider or be aware of. If she finds that she is forgetting the pills or not able to take them or having some other issue then after we have her annual exam we could also consider a Mirena IU S. I am ordering a pelvic ultrasound I have ordered progestin only OCPs for her to start with her next period as she is already on day 9 or 10 of her cycle at this moment. Discussed strategies for remembering the pills because she says she has trouble with that and sometimes she even forgets to take her iron which is why she will end up needing iron transfusions, I suggested she time the taking of the control pills and maybe even her iron to when she prays during the day which she does within a 1/2 hour window for each prayer. see her after the ultrasound results and schedule an annual exam. Orders: Orders US pelvic and transvaginal Today N92.0 - Excessive and frequent menstruation with regular cycle Medications: New norethindrone (contraceptive) start at the beginning of your next period. 0.35 mg PO DAILY 84 tabs 3RF Coding Level of Care Code Est Pt Level 3 (40466) Diagnoses Menorrhagia with regular cycle N92.0 Microcytic hypochromic anemia D50.9
== END 2024-07-22 11:42 | disposition home or self-care (01) ==
LOC: HO.HWSM 10:36
PROVIDERS: PCP Internal Medicine; Visit Provider Advanced Practice Midwife
DX: N92.0 Excessive and frequent menstruation with regular cycle (principal); D50.9 Iron deficiency anemia, unspecified
CPT/HCPCS: 99213

== ENCOUNTER → 2024-07-22 10:36 | Outpatient (BNVA) | payer OTHER, SELFPAY | PROVIDERS: PCP Internal Medicine; Visit Provider Advanced Practice Midwife | DX: N92.0 Excessive and frequent menstruation with regular cycle (principal); D50.9 Iron deficiency anemia, unspecified | CPT/HCPCS: 99212 ==

== ENCOUNTER 2024-08-12 11:12 | Outpatient (AMB) | payer OTHER, SELFPAY ==
[2024-08-12 12:17] VITALS: BP 110/70; PULSE 77; TEMP 36.6; O2SAT 98; BMI 22.5
--- NOTE | 2024-08-12 12:17 | AM.OFFWIN_ITS ---
Intake Vital Signs 08/12/24 12:17 Height 5 ft 1 in Weight 119 lb BMI 22.5 BP 110/70 Blood Pressure Location Lt brachial Position Sitting Pulse 77 Pulse Source Pulse Oximeter Temp 97.8 F Temp Source Oral Pulse Oximetry (%) 98 Oxygen Delivery Method Room Air Intake Visit Reasons: EP pain on both shoulders and neck Patient Tobacco Use Status: Never used Tobacco Allergies morphine [MORPHINE] Allergy (Intermediate, Verified 08/12/24 12:19) RASH amoxicillin [AMOXICILLIN] Allergy (Unknown, Verified 08/12/24 12:19) UNKNOWN, unknown - childhood gluten Allergy (Unknown, Verified 08/12/24 12:19) Unknown pork derived (porcine) Allergy (Unknown, Verified 08/12/24 12:19) Unknown sulfacetamide Allergy (Unknown, Verified 08/12/24 12:19) rash Do you need a note to return to daycare/school/sports/work: No HPI HPI Comments History of Present Illness Details Patient is a 38-year-old female with a past med hx of microcytic anemia complaining of pain on her chest wall, left side, neck pain and trapezius pain of both shoulders, shortness of breath with walking, facial tightness, left arm numbness, and heart racing for 10 days ago. Nothing makes it worse or better, NSAIDS do not help. Denies new workout routine or injury. Pain is somewhat reproducible with palpation of left chest wall but she feels the pain much deepe r. Denies fevers, cough, DUBOIS, head congestion, chest congestion, sweating, nausea or vomiting. Denies cardiac history, father has hx of [place] x2 at age 52 and 60, a stroke and stents and his side of the family has a lot of issues. Has never had an EKG or echo. She has never seen a federal judicial law clerk. [facility] Medical History Post herpetic neuralgia History of Helicobacter pylori infection Polyarthralgia Fatigue Lower abdominal pain of unknown etiology Microcytic hypochromic anemia Nausea Hx: bad fall Low back pain Migraine Inflammatory arthritis Acne Surgical History History of esophagogastroduodenoscopy (EGD) No pertinent past surgical history Family History Father Medical history non-contributory Diabetes CVD (cardiovascular disease) Mother Medical history non-contributory Brother No problems noted. Brother No problems noted. Sister No problems noted. Sister No problems noted. Son No problems noted. Daughter No problems noted. Daughter No problems noted. Social History Household Members: Spouse and Children Household Members Other:: 3kids Housing: House Alcohol intake: never Patient Tobacco Use Status: Never used Tobacco e-Cigarette/Vaping Use: Never Used Second Hand Smoke Exposure: No Current occupational status: unemployed Cognitive needs: No Hearing needs: No Vision needs: No Female Reproductive History Menstrual Age of Menarche: 13 Review of Systems Const All systems reviewed & are unremarkable except as noted in HPI and below Physical Exam Vital Signs: Last Vital Signs Temp 97.8 F 08/12/24 12:17 Pulse 77 08/12/24 12:17 BP 110/70 08/12/24 12:17 Pulse Ox 98 08/12/24 12:17 Oxygen Delivery Method Room Air 08/12/24 12:17 BMI result Body Mass Index 22.5 Office Procedures EKG 67302-Awirndkqyzaewczyt, Complete Assessment & Plan Assessment & Plan (1) Chest pain: Code(s): R07.9 - Chest pain, unspecified Qualifiers: Chest pain type: unspecified Qualified Code(s): R07.9 - Chest pain, unspecified Plan: VSS, pt well appearing and PE remarkable for somewhat reproducible left-sided chest wall pain, otherwise it was completely normal. EKG NSR 65BPM, no acute changes noted. Patients last H&H on 07/15/24 was 8.8/29.3 and she was supposed to have iron supplementation but she did not as she said she never heard from her Hematol ogists office. According to their notes, she was supposed to have IV Injectafer 750 mg weekly x2 doses, in short stay surgery. She has likely trended down without treatment. Will send pt to the ED for current labs and further workup. 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 She did sign an AMA form. I have messagedl her urban gardening specialist to inform them of what is going on if they want to do a workup outpatient and manage it differently than her going to the emergency department. Total time spent caring for the patient today was 45 minutes. This includes time spent before the visit reviewing the chart, time spent during the visit, and time spent after the visit on documentation, reviewing laboratory results, diagnostic imaging, medications, performing a medically necessary evaluation, counseling on diagnoses, care coordination, ordering appropriate tests, ordering appropriate medications, review of tests performed by other providers, reporting test results with the patient, communication with other healthcare providers. Coding Level of Care Code Est Pt Level 5 (54538) Diagnoses Chest pain, unspecified type R07.9 Chest pain type: unspecified CPT Codes EKG - CPT: 46383-Karwgrthoygadutqv, Complete ([id number])
== END 2024-08-12 13:18 | disposition home or self-care (01) ==
PROVIDERS: PCP Internal Medicine; Visit Provider Physician Assistant
DX: R07.9 Chest pain, unspecified (principal)

== ENCOUNTER → 2024-08-12 11:12 | Outpatient (BNVA) | payer OTHER, SELFPAY | PROVIDERS: PCP Internal Medicine; Visit Provider Physician Assistant | DX: R07.9 Chest pain, unspecified (principal) | CPT/HCPCS: 93005; 99212 ==

== ENCOUNTER 2024-08-13 10:09 | Outpatient (REF) | payer OTHER, SELFPAY ==
--- NOTE | 2024-08-13 10:16 | EMG_ITS ---
Chief complaint: Polyarthralgia Reason for referral: Evaluate for Carpal Tunnel Syndrome Referred by: Dr. Jensen Procedure done: Bilateral upper extremities NCS/EMG Precautions and/or limitations: Needle EMG done left upper extremity only, poor tolerance of needle The limb temperature was monitored continuously and remained between 32-36 degrees C during the performance of the NCS. Nerve Conduction Studies Anti Sensory Summary Table ?Stim Site NR Onset (ms) Norm Onset (ms) Peak (ms) Norm Peak (ms) O-P Amp (?V) Norm O-P Amp Site1 Site2 Delta-0 (ms) Dist (cm) Michael (m/s) Norm Michael (m/s) Left Median Anti Sensory (2nd Digit) Wrist ? 2.1 2.7 <3.6 97.3 >10 Wrist 2nd Digit 2.1 14.0 67 Right Median Anti Sensory (2nd Digit) Wrist ? 2.1 2.6 <3.6 62.9 >10 Wrist 2nd Digit 2.1 14.0 67 Right Radial Anti Sensory (Thumb) Forearm ? 1.5 2.0 <3.1 40.8 Forearm Thumb 1.5 0.0 Left Ulnar Anti Sensory (5th Digit) Wrist ? 1.9 2.6 <3.7 71.3 >15.0 Wrist 5th Digit 1.9 14.0 74 Right Ulnar Anti Sensory (5th Digit) Wrist ? 1.9 2.7 <3.7 76.4 >15.0 Wrist 5th Digit 1.9 14.0 74 Motor Summary Table ?Stim Site NR Onset (ms) Norm Onset (ms) O-P Amp (mV) Norm O-P Amp iAmp (mV) Amp (1st) (%) Site1 Site2 Delta-0 (ms) Dist (cm) Michael (m/s) Norm Michael (m/s) Left Median Motor (Abd Poll Brev) Wrist ? 2.8 <3.9 10.5 >4.5 12.5 100.0 Elbow Wrist 2.9 18.0 62 >45 Elbow ? 5.7 10.6 12.3 101.0 Right Median Motor (Abd Poll Brev) Wrist ? 2.6 <3.9 9.2 >4.5 10.6 100.0 Elbow Wrist 3.2 19.0 59 >45 Elbow ? 5.8 9.2 10.5 100.0 Left Ulnar Motor (Abd Dig Minimi) Wrist ? 2.4 <3.0 10.4 >5 11.5 100.0 B Elbow Wrist 2.7 17.5 65 >45 B Elbow ? 5.1 10.2 11.4 98.1 A Elbow B Elbow 1.6 10.0 62 >45 A Elbow ? 6.7 9.9 11.1 95.2 Right Ulnar Motor (Abd Dig Minimi) Wrist ? 2.4 <3.0 11.8 >5 13.2 100.0 B Elbow Wrist 2.7 17.5 65 >45 B Elbow ? 5.1 11.4 12.9 96.6 A Elbow B Elbow 1.3 10.0 77 >45 A Elbow ? 6.4 11.1 12.5 94.1 EMG ?Side Muscle Nerve Root Ins Act Fibs Psw Amp Dur Poly Recrt Int Pat Comment Left 1stDorInt Ulnar C8-T1 Nml Nml Nml Nml Nml 0 Nml Complete Left FlexCarRad Median C6-7 Nml Nml Nml Nml Nml 0 Nml Complete Left Biceps Musculocut C5-6 Nml Nml Nml Nml Nml 0 Nml Complete Left Triceps Radial C6-7-8 Nml Nml Nml Nml Nml 0 Nml Complete Left Deltoid Axillary C5-6 Nml Nml Nml Nml Nml 0 Nml Complete FINDINGS: All motor and sensory nerves tested showed normal latencies, amplitudes and conduction velocities. Concentric needle EMG was performed in selected muscles of the left upper extremity. Study did not reveal signs of electric abnormalities as shown in the table above. IMPRESSION: 1. This is a normal study. 2. There is no electrodiagnostic evidence for median neuropathy, ulnar neuropathy, brachial plexopathy, or cervical radiculopathy. Thank you for your kind referral. Meredith Hunter MD, RADHA Board Certified, [place] Board [employer] Physical [employer] and Rehabilitation (ABPMR) Board Certified, [place] Board of Electrodiagnostic Medicine (ABEM) CODIN [phone] [facility]
== END 2024-08-13 10:10 | disposition home or self-care (01) ==
LOC: HO.NEURO 10:09
PROVIDERS: PCP Internal Medicine; Visit Provider Student in an Organized Health Care Education/Training Program
DX: G56.93 Unspecified mononeuropathy of bilateral upper limbs (principal)
CPT/HCPCS: 95886; 95911

== ENCOUNTER → 2024-08-13 10:16 | Outpatient (BNV) | payer OTHER, SELFPAY | PROVIDERS: PCP Internal Medicine; Visit Provider Physical Medicine & Rehabilitation | DX: R20.0 Anesthesia of skin (principal); R20.2 Paresthesia of skin; G89.29 Other chronic pain | CPT/HCPCS: 95886; 95911 ==

== ENCOUNTER 2024-08-25 10:46 | Outpatient (REF) | payer OTHER, SELFPAY ==
[2024-08-26 14:18] LABS: Anti Nuclear Antibody Screen NEGATIVE (NEGATIVE)
[2024-08-26 15:49] LABS: Complement C3 187 mg/dL (83-193)
[2024-08-27 23:38] LABS: Anti DNA DS Antibody 2 IU/mL; Anti-Centromere B Antibodies <1.0 NEG AI (<1.0 NEG); Antibody to SS-A Antigen <1.0 NEG AI (<1.0 NEG); Antibody to SS-B Antigen <1.0 NEG AI (<1.0 NEG); SM/Ribonucleoprotein Ab <1.0 NEG AI (<1.0 NEG); Scleroderma 70 Antibody <1.0 NEG AI (<1.0 NEG); Smith Protein <1.0 NEG AI (<1.0 NEG)
== END 2024-08-25 10:47 | disposition home or self-care (01) ==
LOC: HO.HMGCLDS 10:46
PROVIDERS: PCP Internal Medicine; Visit Provider Student in an Organized Health Care Education/Training Program
DX: M25.50 Pain in unspecified joint (principal)
CPT/HCPCS: 36415; 86038; 86160; 86225; 86235

== ENCOUNTER 2024-08-26 09:47 | Outpatient (REF) | payer OTHER, SELFPAY ==
--- NOTE | ~2024-08-26 | US_ITS ---
CLINICAL HISTORY: N92.0 - Excessive and frequent menstruation with regular cycle US pelvis transabdominal and transvaginal Comparison: US/SR - US PELVIC AND TRANSVAGINAL - 06/22/23 13:10 EST Findings: Transabdominal scanning performed for overall anatomy. Transvaginal scanning performed for additional detail. Anteverted uterus measures 9 cm x 4.7 cm x 6.1 cm. Normal myometrium. Endometrium 10 mm thickness. No lesions. Right ovary measures 2.7 cm by 1.6 cm x 2.4 cm. Left ovary measures 3.2 cm x 1.7 cm x 1.5 cm. Right para ovarian cysts measuring 1.4 cm and 0.5 cm. Normal color Doppler of both ovaries. No free fluid. IMPRESSION: 1. Normal pelvic ultrasound This document has been electronically signed by: Leslie Hunter MD on 08/26/2024 17:05:58
== END 2024-08-26 09:48 | disposition home or self-care (01) ==
LOC: HO.US 09:47
PROVIDERS: PCP Internal Medicine; Visit Provider Advanced Practice Midwife
DX: N92.0 Excessive and frequent menstruation with regular cycle (principal)
CPT/HCPCS: 76830; 76856

== ENCOUNTER → 2024-08-26 09:50 | Outpatient (BNV) | payer OTHER, SELFPAY | PROVIDERS: PCP Internal Medicine; Visit Provider Specialist | DX: N92.0 Excessive and frequent menstruation with regular cycle (principal) | CPT/HCPCS: 76830; 76856 ==

== ENCOUNTER 2024-08-27 10:42 | Outpatient (AMB) | payer OTHER, SELFPAY ==
--- NOTE | 2024-08-27 10:44 | A.OFFVIS_ITS ---
Vital Signs 08/27/24 10:59 Height 5 ft 1 in Weight 119 lb BMI 22.5 BP 110/72 Intake Visit Reasons: ultrasound follow up Corporate Accounting Manager: Corporate Accounting Manager Present (Pita) Accompanied by: Self / Same As Patient Allergies morphine [MORPHINE] Allergy (Intermediate, Verified 08/27/24 10:57) RASH amoxicillin [AMOXICILLIN] Allergy (Unknown, Verified 08/27/24 10:57) UNKNOWN, unknown - childhood gluten Allergy (Unknown, Verified 08/27/24 10:57) Unknown pork derived (porcine) Allergy (Unknown, Verified 08/27/24 10:57) Unknown sulfacetamide Allergy (Unknown, Verified 08/27/24 10:57) rash Medication List - Last Reconciled 08/27/24 by Kristin Lopez CNM ferrous fumarate 324 mg PO DAILY hyoscyamine sulfate 0.125 mg PO QID PRN ibuprofen 600 mg PO TID 30 days norethindrone (contraceptive) 0.35 mg PO DAILY psyllium husk (Metamucil) 0.8 grams (2 x 0.4 gram) PO DAILY vitamin A palmitate 10,000 units PO DAILY Is last menstrual period known: Yes Last menstrual period: 08/16/24 Post menopausal: No Patient : No HPI HPI ultrasound follow up: Details: Patient is here to review her pelvic ultrasound. She has been getting heavier periods she had an iron transfusion yesterday she is very tired all of the time because of her anemia. She has not been interested and is very clear that she did not want to consider something like a Mirena IUD. She only started the pills that I gave her 5 days ago so it is too soon to see if it has a real effect on lightening her menses. [facility] Medical History Post herpetic neuralgia History of Helicobacter pylori infection Polyarthralgia Fatigue Lower abdominal pain of unknown etiology Microcytic hypochromic anemia Nausea Hx: bad fall Low back pain Migraine Inflammatory arthritis Acne Surgical History History of esophagogastroduodenoscopy (EGD) No pertinent past surgical history Family History Father Medical history non-contributory Diabetes CVD (cardiovascular disease) Mother Medical history non-contributory Brother No problems noted. Brother No problems noted. Sister No problems noted. Sister No problems noted. Son No problems noted. Daughter No problems noted. Daughter No problems noted. Social History Household Members: Spouse and Children Household Members Other:: 3kids Housing: House Alcohol intake: never Patient Tobacco Use Status: Never used Tobacco e-Cigarette/Vaping Use: Never Used Second Hand Smoke Exposure: No Current occupational status: unemployed Cognitive needs: No Hearing needs: No Vision needs: No Female Reproductive History Menstrual Age of Menarche: 13 Date of last menstrual period: 08/16/24 control method: none Total pregnancies: 4 Full term: 4 Date of last pap smear: 08/16/22 (negative pap smear, negative hpv ) History of abnormal pap smear: No History of STI: No Results Reviewed Results Reviewed: Patient: Jennifer Maxwell MR#: [id number] : 1985 Acct:[id number] Age/Sex: 38 / F ADM Date: 08/26/24 Loc: HO.US Attending Dr: Kristin Lopez CNM Ordering Physician: Kristin Lopez CNM Date of Service: 08/26/24 Procedure(s): US pelvic and transvaginal Accession Number(s): [id number] cc: Sirisha Dior MD; Kristin Lopez CNM~ CLINICAL HISTORY: N92.0 - Excessive and frequent menstruation with regular cycle US pelvis transabdominal and transvaginal Comparison: US/SR - US PELVIC AND TRANSVAGINAL - 06/22/23 13:10 EST Findings: Transabdominal scanning performed for overall anatomy. Transvaginal scanning performed for additional detail. Anteverted uterus measures 9 cm x 4.7 cm x 6.1 cm. Normal myometrium. Endometrium 10 mm thickness. No lesions. Right ovary measures 2.7 cm by 1.6 cm x 2.4 cm. Left ovary measures 3.2 cm x 1.7 cm x 1.5 cm. Right para ovarian cysts measuring 1.4 cm and 0.5 cm. Normal color Doppler of both ovaries. No free fluid. IMPRESSION: 1. Normal pelvic ultrasound This document has been electronically signed by: Leslie Hunter MD on 08/26/2024 17:05:58 Dictated By: Leslie Hunter MD Signed By: <Electronically signed by Leslie Hunter MD in OV> 08/26/241706 DD/ 04 TD/TT: 08/26/241704 Coach: Assessment & Plan Assessment & Plan (1) Menorrhagia with regular cycle: Code(s): N92.0 - Excessive and frequent menstruation with regular cycle Category: Medical (2) Anemia: Code(s): D64.9 - Anemia, unspecified Category: Medical Plan She only started the pills 5 days ago so it is hard to know whether not it we will have an effect on her period.. It might have been a little bit geotechnician this menses but she is not sure.. She had a an iron infusion yesterday but she is still tired she is not sure when her follow-up will be with Dr. Allen or if more iron infusions are indicated. I will see her again in about 3 months to see if the periods are getting better with the oral contraceptive progestin only pill. It is still her preference to try the pills 1st before considering anything invasive like a Mirena IUD to help with her heavy periods in the. We will see her in 3 months I did review the ultrasound which was basically within normal limits with the small paraovarian cyst. Coding Level of Care Code Est Pt Level 3 (49606) Diagnoses Menorrhagia with regular cycle N92.0 Anemia D64.9
[2024-08-27 10:59] VITALS: BP 110/72; BMI 22.5
== END 2024-08-27 13:41 | disposition home or self-care (01) ==
LOC: HO.HWSM 10:42
PROVIDERS: PCP Internal Medicine; Visit Provider Advanced Practice Midwife
DX: N92.0 Excessive and frequent menstruation with regular cycle (principal); D64.9 Anemia, unspecified
CPT/HCPCS: 99213

== ENCOUNTER → 2024-08-27 10:42 | Outpatient (BNVA) | payer OTHER, SELFPAY | PROVIDERS: PCP Internal Medicine; Visit Provider Advanced Practice Midwife | DX: N92.0 Excessive and frequent menstruation with regular cycle (principal); D64.9 Anemia, unspecified | CPT/HCPCS: 99212 ==

== ENCOUNTER 2024-09-02 09:45 | Outpatient (RCR) | payer OTHER, SELFPAY ==
[2024-08-26 09:00] VITALS: BP 111/73; PULSE 80; RESP 16; TEMP 36.8; O2SAT 100
[2024-08-26] MEDS: Ferric Carboxymaltose 750 MG in 0.9 % Sodium Chloride 250 ML 1060 MG IV (09:23)
[2024-09-02 10:09] VITALS: BP 109/76; PULSE 76; RESP 16; TEMP 36.6; O2SAT 99
[2024-09-02] MEDS: Ferric Carboxymaltose 750 MG in 0.9 % Sodium Chloride 250 ML 1060 MG IV (10:38)
== END 2024-09-02 10:59 | disposition home or self-care (01) ==
LOC: HO.INF 09:45
PROVIDERS: Visit Provider Internal Medicine Medical Oncology
DX: D50.9 Iron deficiency anemia, unspecified (principal)
CPT/HCPCS: 96365; J1439

== ENCOUNTER 2024-10-20 10:43 | Outpatient (REF) | payer OTHER, SELFPAY ==
[2024-10-20 11:01] LABS: MANUAL DIFF FLAG NO
[2024-10-20 11:54] LABS: Hematocrit 40.8 % (37.0-47.0); Hemoglobin 13.2 g/dl (12.0-16.0); Imm Gran Abs Auto 0.00 X10*3/uL (0.00-0.03); Imm Gran Pct Auto 0.0 % (0.0-0.4); Lymphocytes Absolute Auto 1.7 X10*3/uL (1.2-4.9); Mean Corpuscular HGB Conc 32.4 g/dl (31.0-35.0); Mean Corpuscular Hemoglobin 27.6 pg (27.0-33.0); Mean Corpuscular Volume 85.4 fL (80.0-98.0); NRBC Abs Auto 0.000 X10*3/uL (0.0-0.012); NRBC Pct Auto 0.0 /100WBC (0.0-0.2); Platelet Count 286 X10*3/uL (160-400); Red Blood Count 4.78 X10*6/uL (4.20-5.50); White Blood Count 5.5 X10*3/uL (4.8-10.8)
[2024-10-20 12:12] LABS: Alanine Aminotransferase 28 U/L (0-31); Albumin Level 4.6 g/dL (3.5-5.0); Alkaline Phosphatase 100 U/L (39-117); Anion Gap 9 (12-20); Aspartate Amino Transferase 26 U/L (5-31); Blood Urea Nitrogen 11 mg/dL (9-16); Calcium 8.9 mg/dL (8.4-10.2); Carbon Dioxide 25 mmol/L (22-29); Chloride 109 mmol/L (96-108); Cholesterol 141 mg/dL (<200); Estimated Glomerular Filt Rate > 60; HDL Cholesterol 47 mg/dL (>40); Potassium 4.1 mmol/L (3.3-5.1); Sodium 139 mmol/L (135-145); Total Protein 7.5 g/dL (6.5-8.0); Triglycerides 72 mg/dL (<150)
[2024-10-20 12:48] LABS: Ferritin 276 ng/mL (10-122)
== END 2024-10-20 10:44 | disposition home or self-care (01) ==
LOC: HO.LAB 10:43
PROVIDERS: Absent Provider Internal Medicine Medical Oncology; PCP Internal Medicine; Visit Provider Internal Medicine
DX: Z13.220 Encounter for screening for lipoid disorders (principal); D50.9 Iron deficiency anemia, unspecified
CPT/HCPCS: 36415; 80053; 80061; 82728; 85025

== ENCOUNTER 2024-10-23 09:41 | Outpatient (AMB) | payer OTHER, SELFPAY ==
[2024-10-23 10:08] VITALS: BP 104/70; PULSE 70; RESP 16; TEMP 36.7; O2SAT 98; BMI 22.5
--- NOTE | 2024-10-23 10:08 | A.OFFPC_ITS ---
Vital Signs 10/23/24 10:08 Height 5 ft 1 in Weight 119 lb BMI 22.5 BP 104/70 Blood Pressure Location Rt brachial Position Sitting Respiration 16 Pulse 70 Pulse Source Pulse Oximeter Temp 98.1 F Temp Source Oral Pulse Oximetry (%) 98 Oxygen Delivery Method Room Air Intake Visit Reasons: Annual PE PHQ-9 needed. Is last menstrual period known: Yes Last menstrual period: 10/14/24 Allergies morphine (MORPHINE) Allergy (Intermediate, Verified 10/27/24 00:18) RASH amoxicillin (AMOXICILLIN) Allergy (Unknown, Verified 10/27/24 00:18) UNKNOWN, unknown - childhood gluten Allergy (Unknown, Verified 10/27/24 00:18) Unknown pork derived (porcine) Allergy (Unknown, Verified 10/27/24 00:18) Unknown sulfacetamide Allergy (Unknown, Verified 10/27/24 00:18) rash Medication List - Last Reconciled 10/23/24 by Sirisha Dior MD ibuprofen 600 mg PO TID 30 days norethindrone (contraceptive) 0.35 mg PO DAILY Tobacco use date assessed: 10/23/24 Dental Screening Dental Screen Date: 10/23/24 Did you have a dental visit in the last 12 months?: No Did you have a dental problem in the last 6 months where you did not have access to dental care?: No Was dental information given to patient?: Patient declined HPI Annual PE PHQ-9 needed. HPI Details 39-year-old lady with history of menorrh agia causing iron-deficiency anemia just had a recent blood transfusion with 2 units of packed RBC, has history of gestational diabetes, and advised joint weakness and pain mainly in her wrists and knees , history of H pylori gastritis mi presents today for her physical exam. She has been feeling better since her transfusion. She is a [id number] mom with 4 kids, the youngest of which is [id number]. She is currently being followed by her OBGYN and was started on control pills. [facility] Medical History (Updated 10/23/24 @ 10:52 by Sirisha Dior MD) History of menorrhagia History of anemia History of gestational diabetes Weak movement of joint Post herpetic neuralgia History of Helicobacter pylori infection Polyarthralgia Fatigue Lower abdominal pain of unknown etiology Microcytic hypochromic anemia Nausea Hx: bad fall Low back pain Migraine Inflammatory arthritis Acne Surgical History History of esophagogastroduodenoscopy (EGD) No pertinent past surgical history Family History Father Medical history non-contributory Diabetes CVD (cardiovascular disease) Mother Medical history non-contributory Brother No problems noted. Brother No problems noted. Sister No problems noted. Sister No problems noted. Son No problems noted. Daughter No problems noted. Daughter No problems noted. Social History Household Members: Spouse and Children Household Members Other:: 3kids Housing: House Alcohol intake: never Patient Tobacco Use Status: Never used Tobacco e-Cigarette/Vaping Use: Never Used Second Hand Smoke Exposure: No Current occupational status: unemployed Cognitive needs: No Hearing needs: No Vision needs: No Female Reproductive History Menstrual Age of Menarche: 13 Date of last menstrual period: 10/14/24 Questionnaire PHQ-9 Over the last 2 weeks, how often have you been bothered by any of the following problems? 1. Little interest or pleasure in doing things: not at all 2. Feeling down, depressed, or hopeless: not at all 3. Trouble falling or staying asleep, or sleeping too much: not at all 4. Feeling tired or having little energy: more than half the days 5. Poor appetite or overeating: not at all 6. Feeling bad about yourself - or that you are a failure or have let yourself or your family down: not at all 7. Trouble concentrating on things, such as reading the newspaper or watching television: not at all 8. Moving or speaking so slowly that other people could have noticed. Or the opposite - being so fidgety or restless that you have been moving around a lot more than usual: not at all 9. Thoughts that you would be better off or of hurting yourself in some way: not at all Total score: 2 Depression Screening Interpretation: Negative Depression Screening Done: Yes 13515 - PHQ-9 Billing: Yes Source: Developed by Drs. Jorge Baumann, Mandy Pruitt, Juan Acharya and colleagues, with an educational jaden from [employer]. Thrive Questionnaire Date Thrive assessed: 10/23/24 I am a: Patient What is your living situation today?: I have a steady place to live Within the past 12 months, did the food you bought not last and you didn't have the money to get more?: Never true Within the past 12 months, did you worry whether your food would run out before you got money to buy more?: Never true Do you have trouble paying for medicines?: No Do you have trouble getting transportation to medical appointments?: No Do you have trouble paying your heating and electricity bill?: No Do you have trouble taking care of your child, family member or friend?: No Do you have trouble with day-to-day activities such as bathing, preparing meals, shopping, managing finances, etc.?: No Are you currently unemployed and looking for a job?: No Are you interested in more education?: No Please select the resources that you would like help with: None Currently or been in a relationship where the following occur: No concerns reported THRIVE Score: 0 AUDIT C Alcohol Use Questionnaire (AUDIT-C) 1. How often do you have a drink containing alcohol?: Never Total Score: 0 BERNARDINO-7 AMB Questionnaire BERNARDINO-7 Date BERNARDINO - 7 assessed: 10/23/24 Feeling nervous, anxious, or on edge: 0 = Not at all Not being able to stop or control worryin = Not at all Worrying too much about different things: 0 = Not at all Trouble relaxin = Not at all Being so restless that it is hard to sit still: 0 = Not at all Becoming easily annoyed or irritable: 0 = Not at all Feeling afraid as if something awful might happen: 0 = Not at all Total BERNARDINO-7 score (0-4 normal; 5-9 mild; 10-14 moderate; 15-21 severe): 0 Source: Developed by Drs. Jorge Baumann, Mandy Pruitt, Juan Acharya and colleagues, with an educational jaden from [employer]. BERNARDINO-7 Assessment Billing BERNARDINO-7 Assessment Tool: BERNARDINO-7 Assessment 96380 Review of Systems Const Reports as per HPI and Reports no additional complaints Eyes Denies change in vision ENT Reports no additional complaints Card Reports no additional complaints Resp Reports no additional complaints GI Reports no additional complaints Reports no additional complaints and Reports as per HPI Musc Reports as per HPI Skin/Breast Denies breast pain and Denies breast mass Neuro Reports no additional complaints Psych Reports no additional complaints Endo Reports no additional complaints Abran/Lymph Reports no additional complaints Aller/Immun Reports no additional complaints and Reports urticaria Physical exam (Primary Care) Vital Signs: Last Vital Signs Temp 98.1 F 10/23/24 10:08 Pulse 70 10/23/24 10:08 Resp 16 10/23/24 10:08 BP 104/70 10/23/24 10:08 Pulse Ox 98 10/23/24 10:08 Oxygen Delivery Method Room Air 10/23/24 10:08 BMI result Body Mass Index 22.5 Tobacco/Smoking Status: Tobacco use Status Tobacco use date assessed 10/23/24 10/23/24 10:09 Patient Tobacco Use Status Never used Tobacco 10/23/24 10:09 e-Cigarette/Vaping Use Never Used 10/23/24 10:09 PHQ-9: PHQ-9 Score PHQ-9: Total score 2 10/23/24 13:26 Depression Screening Interpretation: Negative Thrive Assessment: Date of Thrive Assessment Date Thrive assessed 10/23/24 10/23/24 13:26 Currently or been in a relationship where the following occur: No concerns reported Const Other: Alert oriented x3, no acute distress noted, ambulatory with normal gait Orientation/consciousness: patient oriented x3 [facility] Head: Yes normocephalic Ears: external ears normal General nose exam: Normal external nose present Face and sinus: Yes face symmetric Mouth: Normal oral and palatal mucosa present, oropharynx normal and moist mucous membranes Eyes General: appearance normal, both eyes and all related structures Neck Neck: Yes full ROM, Yes no lymphadenopathy, Yes supple and Yes other (Nonpalpable thyroid gland) Chest Breast/axilla palpation: normal palpation of the breasts and normal palpation of the axillae Resp Auscultation: clear to auscultation bilaterally and no wheezes Cardio Other: S1-S2 present regular rate and rhythm GI Inspection: Yes normal to inspection Palpation (GI): Soft to palpation, no guarding and no masses General: Yes no CVA tenderness Back/Spine/Pelvis Back: no CVA tenderness and back tenderness (Aching pain in lower back, nonradiating) Skin General skin exam: no rashes or lesions noted Neuro General: patient oriented x3, gait normal, tone normal, moves all extremities and no focal motor deficits Extrem General: Yes full ROM, Yes no joint enlargement, Yes no pedal edema, Yes no calf tenderness and Yes normal gait Psych Appearance: grossly normal Mental Status: mental status grossly normal Speech and movement: Normal speech and movement present Affect: normal affect Results Reviewed Results Reviewed: Name: Jennifer Maxwell Age/Sex: 39/F : 1985 Unit#: [id number] Attend Dr: Sirisha Dior MD Re10/20/24 Status: DEP REF Location: .LAB Disch: SPEC : [id number] ROXANNE: 10/20/24 STATUS: COMP REQ : [id number] RECD: 10/20/[address]: Beverley Allen MD COMP: 10/20/24 ENTERED: 10/20/[address] [facility] DR: Sirisha Dior MD ORDERED: CBC Auto Diff Test Result Flag Reference WBC 5.5 4.8-10.8 X10*3/uL RBC 4.78 4.20-5.50 X10*6/uL HGB 13.2 # 12.0-16.0 g/dl HCT 40.8 # 37.0-47.0 % MCV 85.4 80.0-98.0 fL MCH 27.6 27.0-33.0 pg MCHC 32.4 31.0-35.0 g/dl RDW 21.6 H 11.0-16.0 % PLT 286 # 160-400 X10*3/uL MPV 10.5 9.4-12.3 fL Neut Pct Auto 59.3 45-73 % ImGran Pct Auto 0.0 0.0-0.4 % Lymp Pct Auto 31.4 20-40 % [place] Pct Auto 5.1 2-11 % Eos Pct Auto 3.1 0-4 % Baso Pct Auto 1.1 0-2 % NRBC Pct Auto 0.0 0.0-0.2 /100WBC ANC Neut Abs # 3.3 2.0-8.3 x10*3/uL ImGran Abs Auto 0.00 0.00-0.03 X10*3/uL Lymph Abs Auto 1.7 1.2-4.9 X10*3/uL [place] Abs Auto 0.3 0.1-1.2 X10*3/uL Eos Abs Auto 0.2 0.0-0.4 X10*3/uL Baso Abs Auto 0.1 0.0-0.2 X10*3/uL NRBC Abs Auto 0.000 0.0-0.012 X10*3/uL Name: Jennifer Maxwell Age/Sex: 39/F : 1985 Unit#: [id number] Attend Dr: Sirisha Dior MD Re10/20/24 Status: DEP REF Location: .LAB Disch: SPEC : [id number] ROXANNE: 10/20/24 STATUS: COMP REQ : [id number] RECD: 10/20/[address]: Sirisha Dior MD COMP: 10/20/24 ENTERED: 10/20/[address]: Beverley Allen MD ORDERED: CMP, Lipid Panel/R Test Result Flag Reference Sodium 139 135-145 mmol/L Potassium 4.1 3.3-5.1 mmol/L CL 109 H 96-108 mmol/L CO2 25 22-29 mmol/L Gap 9 L 12-20 BUN 11 9-16 mg/dL Creat 0.55 0.5-1.4 mg/dL eGFR > 60 Chronic Kidney Disease: Estimated GFR < 60 mL/min/1.73m2 Severe Kidney Disease: Estimated GFR < 15 mL/min/1.73m2 Glucose, Random 83 60-115 mg/dL CA 8.9 8.4-10.2 mg/dL Total Bili 0.3 0.0-1.0 mg/dL AST (GOT) 26 5-31 U/L ALT (GPT) 28 0-31 U/L Protein, Total 7.5 6.5-8.0 g/dL Alb 4.6 3.5-5.0 g/dL Triglyceride 72 <150 mg/dL Desirable Triglyceride: less than 150 mg/dL Borderline High Triglyceride 150-199 mg/dL High Triglyceride: 200-499 mg/dL Very High Triglyceride: greater than or equal to 5OO mg/dL Cholesterol 141 <200 mg/dL Desirable Cholesterol: less than 200 mg/dL Borderline High Cholesterol: 200-239 mg/dL High Cholesterol: greater than 239 mg/dL LDL Calculated 80 <100 mg/dL Desirable LDL: less than 100 mg/dL Near Optimal/Above Optimal LDL: 110-129 mg/dL Borderline High LDL: 130-159 mg/dL High LDL: 160-189 mg/dL Very High LDL: greater than or equal to 190 mg/dL HDL 47 >40 mg/dL Desirable HDL: greater than 40 mg/dL Note: This HDL assay may give artificially low results in patients with liver disease. Alk Phos 100 39-117 U/L Coding Level of Care Code Est Pt Prev Care 18-39y(39960) Diagnoses Annual visit for general adult medical examination with abnormal findings Z00.01 Chronic bilateral low back pain without sciatica M54.50; G89.29 Back pain laterality: bilateral Chronicity: chronic Sciatica presence: without sciatica History of gestational diabetes Z86.32 History of anemia Z86.2 Advanced directives, counseling/discussion Z71.89 History of menorrhagia Z87.42 Weak movement of joint R29.898 Additional Codes PHQ-9 - 82000 - PHQ-9 Billing: Yes ([id number]) BERNARDINO-7 Assessment Billing - BERNARDINO-7 Assessment Tool: BERNARDINO-7 Assessment 44037 ([id number]) Assessment & Plan Assessment & Plan (1) Annual visit for general adult medical examination with abnormal findings: Code(s): Z00.01 - Encounter for general adult medical examination with abnormal findings Plan: Will check appropriate labs. Recommended dental visit every 6 months and regular eye exams, at least every 2 years. Take adequate calcium in diet and vitamin-D 3 at 2000 IU per cap once a day, in addition to weight-bearing exercises to help maintain good muscle tone and weight control. Instructed to do self-breast exam, and recommended to get yearly mammogram, starting at age 40. Up-to-date with her adult vaccinations (2) Low back pain: Code(s): M54.50 - Low back pain, unspecified Category: Medical Qualifiers: Back pain laterality: bilateral Chronicity: chronic Sciatica presence: without sciatica Qualified Code(s): M54.50 - Low back pain, unspecified; G89.29 - Other chronic pain Plan: Advised to try applying Salonpas patch to affected area in lower back every 12 hours as needed. Instructed to do stretching exercises, if no improvement will refer for physical therapy (3) History of gestational diabetes: Code(s): Z86.32 - Personal history of gestational diabetes Category: Medical Plan: Having gestational diabetes increased to refer developing diabetes mellitus later in life. Reinforced importance of following a healthy diet, with hali idance of lot of processed foods, dairy, simple starches like rice, white bread, white potatoes and pasta. (4) History of anemia: Code(s): Z86.2 - Personal history of diseases of the blood and blood-forming organs and certain disorders involving the immune mechanism Category: Medical Plan: Just received 2 units of packed RBC several weeks ago. Now feeling much better. (5) Advanced directives, counseling/discussion: Code(s): Z71.89 - Other specified counseling Plan: Initiated the conversation about Advanced Directives. Advanced Directives help patients prepare for current and future decisions about their medical treatment and place of care. Discussed with patient that it is a process where a patients current condition and prognosis are reviewed, their wishes for information regarding their illness are elicited, and likely medical dilemmas are presented and options discussed. Healthcare proxy form completed today. The form can be amended as needed, reviewed yearly and make changes as needed (6) History of menorrhagia: Code(s): Z87.42 - Personal history of other diseases of the female genital tract Category: Medical Plan: Started on control pills by her OB. (7) Weak movement of joint: Code(s): R29.898 - Other symptoms and signs involving the musculoskeletal system Category: Medical Plan: Referred to physical therapy for further evaluation. And management Orders: Orders PT Evaluation and Treatment 10/23/24 M54.50 - Low back pain, unspecified, R29.898 - Other symptoms and signs involving the musculoskeletal system
== END 2024-10-23 10:54 | disposition home or self-care (01) ==
LOC: HO.HMCC 09:41
PROVIDERS: PCP Internal Medicine; Visit Provider Internal Medicine
DX: Z00.01 Encounter for general adult medical examination with abnormal findings (principal); M54.50 Low back pain, unspecified; G89.29 Other chronic pain; Z86.32 Personal history of gestational diabetes; Z86.2 Personal history of diseases of the blood and blood-forming organs and certain disorders involving the immune mechanism; Z71.89 Other specified counseling; Z87.42 Personal history of other diseases of the female genital tract; R29.898 Other symptoms and signs involving the musculoskeletal system

== ENCOUNTER → 2024-10-23 09:41 | Outpatient (BNVA) | payer OTHER, SELFPAY | PROVIDERS: PCP Internal Medicine; Visit Provider Internal Medicine | DX: Z00.01 Encounter for general adult medical examination with abnormal findings (principal); M54.50 Low back pain, unspecified; G89.29 Other chronic pain; Z86.32 Personal history of gestational diabetes; Z86.2 Personal history of diseases of the blood and blood-forming organs and certain disorders involving the immune mechanism; Z71.89 Other specified counseling; Z87.42 Personal history of other diseases of the female genital tract; R29.898 Other symptoms and signs involving the musculoskeletal system | CPT/HCPCS: 96127; 99395 ==